=== PATIENT | female | born 1970 | race Caucasian/White ===

== ENCOUNTER 2022-05-15 18:24 | Inpatient (IN) | payer OTHER ==
--- OUTSIDE RECORDS SUMMARY | 2022-05-15 18:27 | XMS REPORT | Continuity of Care Document ---
:1970 Author Organization [facility] t Address [facility]3 [address] [place] [address] Care Team Providers Name Role Phone KRIS BROTHERS Primary Care Physician Unavailable DR KRIS BROTHERS Attending Clinician Unavailable [phone] Attending Clinician Unavailable KEVEN Attending Clinician Unavailable Timothy Murrieta Attending Clinician [phone] DR KRIS BROTHERS Admitting Clinician Unavailable KEVEN Admitting Clinician Unavailable Payers Payer Name Policy Type Policy Number Effective Date Expiration Date S ource Problems Condition Condition Condition Status Onset Resolution Last Treating Co mments Source Name Details Category Date Date Treatment Clinician Date Hypothyroi Hypothyroi Problem Active [place] dism dism - [facility] Chronic Chronic Problem Active [place] paranoid 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 00 [facility] Mixed Mixed Problem Active [place] anxiety Anxiety 818 Communi and and 00:00: ty depressive Depressive 00 Ho spita disorder Disorder l Clinics History of History of Problem Active S [place] manic Manic 8-18 Communi depressive Depressive 00:00: ty disorder Disorder 00 Hospit [facility] Clinics 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 Hallucinat 8-18 Co mmuni ions ions 00:00: ty 00 [facility] Diabetes Diabetes Problem Active [place] mellitus Mellitus 8-18 Commun i 00:00: ty [facility] Hyperlipid Hyperlipid Problem Active S we[place]y emia emia 1-19 Communi 00:00: ty 00 [facility] Schizoaffe Schizoaffe Problem Active 2003-06 S weeny ctive ctive 07-14 [facility] disorder, Disorder, 00:00: ty mixed type Mixed Type 00 [facility] Bipolar Bipolar Problem Active [place] disorder Disorder 10-15 Commun i 00:00: ty 00 [facility] Allergies, Adverse Reactions, Alerts Allergy Allergy Status Severity Reaction(s) Onset Inactive Treating Comm ents Source Name Type Date Date Clinician HALDOL Allergy Active Hallucinatio Swe han to [facility] e [facility] Risperda Allergy Active Hallucinatio S weeny l to [facility] e [facility] Olanzapi Allergy Active Hallucinatio S weeny ne to [facility] Social History Smoking Status Start Date Stop Date Source Current Every Day Smoker [facility] Medications Ordered Filled Start Stop Current Ordering Indication Dosage Frequency Signature Comments Components Source Medication Medication Date Date Medication? Clinician (SIG) Name Name Moiz Choudharyakote No 1 Q1D Depakote S we[place] 250 mg 250 mg 8-18 250 mg Communi tablet,payal tablet,payal 00:00: tablet,del ty yed release yed release 00 ayed H ospita Take 1 Take 1 release l tablet tablet Take 1 Clinics every day every day tablet by oral by oral every day route at route at by oral bedtime. bedtime. route at bedtime. Depakote ER Depakote ER No 2 BID Depakote [place] 500 mg 500 mg 8-18 ER 500 mg Commun i tablet,exte tablet,exte 00:00: tablet,ext ty nded nded 00 ended Hospita release release release l Take 2 Take 2 Take 2 Clinics tablets tablets tablets twice a day twice a day twice a by oral by oral day by route. route. oral route. Depakote ER Depakote ER No 1 BID Depakote [place] 500 mg 500 mg ER 500 mg Commun i tablet,exte tablet,exte tablet,ext ty nded nded ended Hospita release release release l Take 1 Take 1 Take 1 Clinics tablet tablet tablet twice a day twice a day twice a by oral by oral day by route. route. oral route. fluoxetine fluoxetine No 1capsul Q1D fluoxetine [place] 10 mg 10 mg e(s) 10 mg Communi capsule capsule capsule ty Take 1 Take 1 Take 1 Hospita capsule capsule capsule l every day every day every day Clinics by oral by oral by oral route. route. route. levothyroxi levothyroxi No 1 Q1D levothyrox [place] ne 150 mcg ne 150 mcg ine 150 Communi tablet Take tablet Take mcg tablet ty 1 tablet 1 tablet Take 1 Hospi ta every day every day tablet l by oral by oral every day Clin ics route. route. by oral route. atorvastati atorvastati No 1 Q1D atorvastat [place] n 40 mg n 40 mg in 40 mg Commu ni tablet Take tablet Take tablet ty 1 tablet 1 tablet Take 1 Hospi ta every day every day tablet l by oral by oral every day Clin ics route. route. by oral route. ergocalcife ergocalcife No 1capsul Q1W ergocalcif [place] rol rol e(s) andrea Communi (vitamin (vitamin (vitamin ty D2) 1,250 D2) 1,250 D2) 1,250 Hospita mcg (50,000 mcg (50,000 mcg l unit) unit) (50,000 Clinics capsule capsule unit) Take 1 Take 1 capsule capsule capsule Take 1 every week every week capsule by oral by oral every week route. route. by oral route. fluoxetine fluoxetine No 1capsul Q1D fluoxetine [place] 10 mg 10 mg e(s) 10 mg Communi capsule capsule capsule ty Take 1 Take 1 Take 1 Hospita capsule capsule capsule l every day every day every day Clinics by oral by oral by oral route. route. route. levothyroxi levothyroxi No 1 Q1D levothyrox [place] ne 137 mcg ne 137 mcg ine 137 Communi tablet Take tablet Take mcg tablet ty 1 tablet 1 tablet Take 1 Hospi ta every day every day tablet l by oral by oral every day Clin ics route. route. by oral route. levothyroxi levothyroxi No 1 Q1D levothyrox [place] ne 150 mcg ne 150 mcg ine 150 Communi tablet Take tablet Take mcg tablet ty 1 tablet 1 tablet Take 1 Hospi ta every day every day tablet l by oral by oral every day Clin ics route. route. by oral route. propranolol propranolol No 1 BID propranolo [place] 10 mg 10 mg l 10 mg Communi tablet Take tablet Take tablet ty 1 tablet 1 tablet Take 1 Hospi ta twice a day twice a day tablet l by oral by oral twice a Clinic s route. route. day by oral route. quetiapine quetiapine No 3 Q1D quetiapine [place] 25 mg 25 mg 25 mg Communi tablet Take tablet Take tablet ty 3 tablets 3 tablets Take 3 Hos rome every day every day tablets l by oral by oral every day Clin ics route at route at by oral bedtime. bedtime. route at bedtime. Vital Signs Vital Name Observation Time Observation Value Comments Source BP Diastolic 2022-02-11 00:00:00 74 mm[Hg] [facility] s Height 2022-02-11 00:00:00 65 [in_i] [facility] s BMI (Body Mass 2022-02-11 00:00:00 34.1 kg/m2 [facility]) [facility] s BP Systolic 2022-02-11 00:00:00 122 mm[Hg] [facility] s Body Weight 2022-02-11 00:00:00 3280 [oz_av] [facility] s BP Diastolic 2022-02-07 00:00:00 72 mm[Hg] [facility] s Height 2022-02-07 00:00:00 65 [in_i] [facility] s BMI (Body Mass 2022-02-07 00:00:00 34.1 kg/m2 [facility]) [facility] s BP Systolic 2022-02-07 00:00:00 120 mm[Hg] [facility] s Body Weight 2022-02-07 00:00:00 3280 [oz_av] [facility] s Procedures This patient has no known procedures. Plan of Care Planned Activity Planned Date Details Comments Source Diagnostic Test 2022-02-11 HbA1c (hemoglobin [facility] Pending 00:00:00 A1c), blood [code Hospital C linics = HbA1c (hemoglobin A1c), blood] Encounters Start End Encounter Admission Attending Care Care Encounter Source Date/Time Date/Time Type Type Clinicians Facility Department ID 2022-05-15 Outpatient ZAIRA PANTOJAEDDINGTON [id number] [place] 09:10:52 [id number] [facility] 2022-05-15 2022-05-15 Outpatient KRIS CAVAZOS [facility] [id number] [place] 09:13:00 09:13:00 [id number] [facility] 2022-02-11 2022-02-11 Outpatient ERICKSON_R [facility] [id number] [place] 00:00:00 00:00:00 0822 Commun i ty Hospita l Clinics 2022-02-11 2022-02-11 Outpatient [place], [facility] [id number] 00:00:00 00:00:00 Timothy [id number] Toro [id number] 2022-02-11 2022-02-11 Timothy [facility] [place] - [place] 00:00:00 00:00:00 General acute hospital - ty DO: [address] Hospit a [facility] [address], HOSPITAL Clinic s [place], [facility], [address] JACQUELINE , Ph. [phone] 2022-02-08 2022-02-08 Outpatient ERICKSON_R [facility] [id number] [place] 00:00:00 00:00:00 0819 Commun i ty Hospita l Clinics 2022-02-07 2022-02-07 Outpatient ERICKSON_R [facility] 1236 [place] 00:00:00 00:00:00 0818 Commun i ty Hospita l Clinics 2022-02-07 2022-02-07 Outpatient Jacqueline, [facility] [id number] 00:00:00 00:00:00 Timothy [id number] [id number] 2022-02-07 2022-02-07 Timothy [facility] [place] - [place] 18 [place] 00:00:00 00:00:00 General acute hospital - ty DO: [address] [facility], [address] JACQUELINE , Ph. [phone] 2022-02-04 2022-02-04 Outpatient KEVEN [facility] [id number] 00:00:00 00:00:00 15 [facility] i ty [facility] 2022-02-04 2022-02-04 Timothy [facility] [place] - [place] 00:00:00 00:00:00 [facility] DO: [address] [facility], [address] JACQUELINE , Ph. 2022-02-04 2022-02-04 Outpatient Jacqueline [facility] [id number] 00:00:00 00:00:00 Timothy [id number] Toro [id number] Results This patient has no known results.
--- NOTE | 2022-05-15 19:49 | EDPHYS ---
Physician Documentation [facility] Name: Laura Mendoza Age: 51 yrs Sex: Female : 1970 Arrival Date: 05/15/2022 Time: 18:27 Bed 23 Private MD: ED Physician Anselmo James HPI: 05/15 18:50 This 51 yrs old Female presents to ER via Ambulatory with complaints of Abscess. jh7 18:50 The patient presents with an abscess of the buttocks. Onset: The symptoms/episode jh7 began/occurred 3 month(s) ago. Possible cause(s): unknown. Associated signs and symptoms: Pertinent positives: discharge, drainage. Patient seen by Dr. Marcus today and sent to [facility] for outpatient CT. CT identified perirectal abscess. Dr. Marcus advised the patient to go to the ER for drainage of the abscess. Patient reports that she has had rectal pain for 2 years, but that has been worsening over the past 3 months.. Historical: - Allergies: 18:46 Codeine; ll1 18:46 respiradol; ll1 18:46 Haldol; ll1 - PMHx: 18:46 "mental health"; Hypertensive disorder; ll1 - PSHx: 18:46 tubal ligation; ll1 - Immunization history:: Client reports receiving the 2nd dose of the Covid vaccine. - Social history:: Smoking status: Patient reports the use of cigarette tobacco products, smokes one-half pack cigarettes per day. ROS: 18:50 Constitutional: Negative for fever, chills, and weight loss, Eyes: Negative for injury, jh7 pain, redness, and discharge. 18:50 ENT: Negative for injury, pain, and discharge, Neck: Negative for injury, pain, and swelling, Cardiovascular: Negative for chest pain, palpitations, and edema, Respiratory: Negative for shortness of breath, cough, wheezing, and pleuritic chest pain, Back: Negative for injury and pain, MS/Extremity: Negative for injury and deformity, Skin: Negative for injury, rash, and discoloration, Neuro: Negative for headache, weakness, numbness, tingling, and seizure. 18:50 Abdomen/GI: Positive for rectal pain. 18:50 Skin: Positive for abscess. 18:50 All other systems are negative. Exam: 18:50 Constitutional: This is a well developed, well nourished patient who is awake, alert, 7 and in no acute distress. Head/Face: Normocephalic, atraumatic. Neck: Trachea midline, no thyromegaly or masses palpated, and no cervical lymphadenopathy. Supple, full range of motion without nuchal rigidity, or vertebral point tenderness. No Meningismus. Cardiovascular: Regular rate and rhythm with a normal S1 and S2. No gallops, murmurs, or rubs. Normal PMI, no JVD. No pulse deficits. Respiratory: Lungs have equal breath sounds bilaterally, clear to auscultation and percussion. No rales, rhonchi or wheezes noted. No increased work of breathing, no retractions or nasal flaring. Back: No spinal tenderness. No costovertebral tenderness. Full range of motion. Skin: Warm, dry with normal turgor. Normal color with no rashes, no lesions, and no evidence of cellulitis. MS/ Extremity: Pulses equal, no cyanosis. Neurovascular intact. Full, normal range of motion. Neuro: Awake and alert, GCS 15, oriented to person, place, time, and situation. Motor strength 5/5 in all extremities. Sensory grossly intact. Normal gait. 18:50 Abdomen/GI: Rectal exam: tenderness, that is moderate. 21:09 ECG was reviewed by the Attending Physician. [facility] Vital Signs: 18:45 BP 156 / 99; Pulse 101; Resp 18; Temp 97.0; Pulse Ox 99% ; Weight 90.72 kg; Height 5 ll1 ft. 5 in. (165.10 cm); Pain 7/10; 21:15 BP 153 / 88; Pulse 81; Resp 18; Pulse Ox 99% on R/A; eh3 18:45 Body Mass Index 33.28 (90.72 kg, 165.10 cm) ll1 MDM: 19:22 Patient medically screened. [facility] 19:40 Differential diagnosis: Perirectal abscess. Data reviewed: vital signs, nurses notes, [facility] lab test result(s), EKG, radiologic studies, CT scan. Data interpreted: Pulse oximetry: is 99 %. Interpretation: normal. Counseling: I had a detailed discussion with the patient and/or guardian regarding: the historical points, exam findings, and any diagnostic results supporting the discharge/admit diagnosis, the need for further work-up and treatment in the hospital. Physician consultation: David Saxena MD was called at 19:40, was contacted at 19:40, regarding patient's condition, and will see patient tomorrow, would like admission per Dr. Seth France MD would like further tests performed, CT scan, pre-operative labs, would like medications started, Levaquin, Flagyl. 05/15 19:31 Order name: CBC with Diff; Complete Time: 21:49 [facility] 05/15 19:31 Order name: CMP; Complete Time: 21:49 [facility] 05/15 19:41 Order name: CT Pelvis wo Cont; Complete Time: 21:09 7 05/15 19:58 Order name: SARS-COV-2 Antigen Rapid; Complete Time: 20:37 em1 05/15 23:04 Order name: Urine Dipstick-Ancillary; Complete Time: 23:14 EDMS 05/15 19:31 Order name: IV Saline Lock; Complete Time: 21:23 [facility] 05/15 19:31 Order name: Labs collected and sent; Complete Time: 21:23 [facility] 05/15 19:41 Order name: EKG - Nurse/Tech; Complete Time: 21:23 jh7 05/15 21:49 Order name: Urine Dipstick-Ancillary (obtain specimen); Complete Time: 22:57 sb4 05/15 21:49 Order name: Urine Test (obtain specimen); Complete Time: 22:57 sb4 EC:09 Rate is 85 beats/min. Rhythm is regular. QRS [place] is Normal. NE interval is normal at jh7 144 msec. QRS interval is normal at 80 msec. QT interval is normal at 368 msec. No Q waves. T waves are Normal. No ST changes noted. Clinical impression: Normal ECG. Administered Medications: 20:57 Drug: NS 0.9% 1000 ml Route: IV; Rate: 1 bolus; Site: left antecubital; 3 23:12 Follow up: IV Status: Completed infusion; IV Intake: 1000ml [facility] 20:58 Drug: Zofran (Ondansetron) 4 mg Route: IVP; Site: left antecubital; 3 22:22 Follow up: Response: No adverse reaction 3 21:00 Drug: morphine 4 mg Route: IVP; Infused Over: 4 mins; Site: left antecubital; eh3 22:21 Follow up: Response: Pain is decreased eh3 21:15 Drug: Flagyl (metroNIDAZOLE) 500 mg Volume: 100 ml; Route: IVPB; Rate: 200 ml/hr; eh3 Infused Over: 30 mins; Site: left antecubital; 23:12 Follow up: Response: No adverse reaction; IV Status: Completed infusion; IV Intake: eh3 100ml 22:25 Drug: LevaQUIN (levofloxacin) 500 mg Volume: 100 ml; Route: IVPB; Infused Over: 60 eh3 mins; Site: left antecubital; 23:27 Follow up: IV Status: Infusion continued upon admission; IV Intake: 15ml eh3 Disposition: 05/16 02:42 Co-signature as Attending Physician, Anselmo James MD. rn Disposition Summary: 05/15/22 19:49 Hospitalization Ordered Hospitalization Status: Inpatient Admission [facility] Provider: Seth France [facility] Location: Telemetry/[facility] (Inpatient) [facility] Condition: Stable [facility] Problem: an ongoing problem [facility] Symptoms: have worsened [facility] Bed/Room Type: Standard [facility] Room Assignment: 205(05/15/22 22:20) [facility] Diagnosis - Anal abscess [facility] Forms: - Medication Reconciliation Form [facility] - SBAR form [facility] Signatures: Dispatcher [employer] EDAnselmo Coelho MD MD rn Basinger, Emily, RN RN eb1 Enrique Hernandez RN RN ll1 Linda Malave RN RN eh3 Krystyna Zapata, HVAC DESIGNER HVAC DESIGNER 7 Veronica Salazar PA-C PA-C sb4 Corrections: (The following items were deleted from the chart) 05/15 22:20 19:49 [facility] eb
--- NOTE | 2022-05-15 19:49 | ER ---
[facility] Name: Laura Mendoza Age: 51 yrs Sex: Female : 1970 Arrival Date: 05/15/2022 Time: 18:27 Bed 23 [facility] MD: Diagnosis: Anal abscess Presentation: 05/15 18:45 Chief complaint: Patient states: Rectal abscess for 2 weeks. Sent in by Dr. Yuan. No ll1 known fever. Coronavirus screen: Vaccine status: Patient reports being unvaccinated. Client denies travel out of the [place] in the last 14 days. At this time, the client does not indicate any symptoms associated with coronavirus-19. Ebola Screen: Patient denies travel to an Ebola-affected area in the 21 days before illness onset. Initial Sepsis Screen: Does the patient meet any 2 criteria? HR > 90 bpm. No. Patient's initial sepsis screen is negative. Does the patient have a suspected source of infection? Yes: Other: rectal abscess. Risk Assessment: Do you want to hurt yourself or someone else? Patient reports no desire to harm self or others. Onset of symptoms was May 01, 2022. 18:45 Method Of Arrival: Ambulatory ll1 18:45 Acuity: REN 3 ll1 Triage Assessment: 18:48 General: Appears uncomfortable, Behavior is cooperative, appropriate for age. Pain: ll1 Complains of pain in rectum Pain currently is 7 out of 10 on a pain scale. Quality of pain is described as aching, throbbing. : Reports rectal pain, bleeding. Historical: - Allergies: 18:46 Codeine; ll1 18:46 respiradol; ll1 18:46 Haldol; ll1 - PMHx: 18:46 "mental health"; Hypertensive disorder; ll1 - PSHx: 18:46 tubal ligation; ll1 - Immunization history:: Client reports receiving the 2nd dose of the Covid vaccine. - Social history:: Smoking status: Patient reports the use of cigarette tobacco products, smokes one-half pack cigarettes per day. Screenin:30 Abuse screen: Denies threats or abuse. Denies injuries from another. Nutritional eh3 screening: No deficits noted. Tuberculosis screening: No symptoms or risk factors identified. Fall Risk None identified. Assessment: 20:30 General: Appears in no apparent distress. uncomfortable, Behavior is cooperative, eh3 appropriate for age, anxious. Pain: Complains of pain in buttocks. Pain: Pain currently is 8 out of 10 on a pain scale. Quality of pain is described as sharp, Is continuous. Neuro: Level of Consciousness is awake, alert, obeys commands, Oriented to person, place, time, situation. Cardiovascular: Capillary refill < 3 seconds Patient's skin is warm and dry. Respiratory: Airway is patent Respiratory effort is even, unlabored, Respiratory pattern is regular, symmetrical. GI: Abdomen is round non-distended. : No signs and/or symptoms were reported regarding the genitourinary system. EENT: No signs and/or symptoms were reported regarding the EENT system. Derm: No signs and/or symptoms reported regarding the dermatologic system. Musculoskeletal: No signs and/or symptoms reported regarding the musculoskeletal system. Circulation, motion, and sensation intact. Range of motion: intact in all extremities. Vital Signs: 18:45 BP 156 / 99; Pulse 101; Resp 18; Temp 97.0; Pulse Ox 99% ; Weight 90.72 kg; Height 5 ll1 ft. 5 in. (165.10 cm); Pain 7/10; 21:15 BP 153 / 88; Pulse 81; Resp 18; Pulse Ox 99% on R/A; eh3 18:45 Body Mass Index 33.28 (90.72 kg, 165.10 cm) ll1 ED Course: 18:27 Patient arrived in ED. rg4 18:46 Triage completed. ll1 18:48 Arm band placed on. ll1 19:21 [facility]ata [facility] jh7 19:21 Anselmo James MD is Attending Physician. jh7 19:45 Seth France MD is Hospitalizing Provider. jh7 20:26 CT Pelvis wo Cont In Process Unspecified. EDMS 20:30 Patient has correct armband on for positive identification. Placed in gown. Bed in low eh3 position. Call light in reach. Side rails up X2. Adult w/ patient. monitoring manager on. Pulse ox on. Door closed. Noise minimized. Warm blanket given. 20:40 Linda Malave RN is Primary Nurse. eh3 20:50 Inserted saline lock: 20 gauge in left antecubital area, using aseptic technique. Blood eh3 collected. 23:15 No provider procedures requiring assistance completed. Patient admitted, IV remains in [address] Administered Medications: 20:57 Drug: NS 0.9% 1000 ml Route: IV; Rate: 1 bolus; Site: left antecubital; 3 23:12 Follow up: IV Status: Completed infusion; IV Intake: 1000ml 3 20:58 Drug: Zofran (Ondansetron) 4 mg Route: IVP; Site: left antecubital; 3 22:22 Follow up: Response: No adverse reaction 3 21:00 Drug: morphine 4 mg Route: IVP; Infused Over: 4 mins; Site: left antecubital; 3 22:21 Follow up: Response: Pain is decreased 3 21:15 Drug: Flagyl (metroNIDAZOLE) 500 mg Volume: 100 ml; Route: IVPB; Rate: 200 ml/hr; eh3 Infused Over: 30 mins; Site: left antecubital; 23:12 Follow up: Response: No adverse reaction; IV Status: Completed infusion; IV Intake: eh3 100ml 22:25 Drug: LevaQUIN (levofloxacin) 500 mg Volume: 100 ml; Route: IVPB; Infused Over: 60 eh3 mins; Site: left antecubital; 23:27 Follow up: IV Status: Infusion continued upon admission; IV Intake: 15ml [facility] Medication: 23:15 VIS not applicable for this client. 3 Intake: 23:12 IV: 100ml; Total: 100ml. 3 23:12 IV: 1000ml; Total: 1100ml. 3 23:27 IV: 15ml; Total: 1115ml. [facility] Outcome: 19:49 Decision to Hospitalize by Provider. [facility] 23:15 Admitted to Med/surg accompanied by tech, via stretcher, room 205, Report called to [facility] Lily 23:15 Condition: stable 23:15 Instructed on the need for admit. 23:32 Patient left the ED. [facility] Signatures: Dispatcher [employer] Emmy Menchaca rg4 Enrique Hernandez, RN RN 1 Linda Malave, JORDY RN 3 Krystyna Zapata, SALES REPRESENTATIVE SALES REPRESENTATIVE [facility] Corrections: (The following items were deleted from the chart) 23:27 20:25 LevaQUIN (levofloxacin) 500 mg 100 ml IVPB in left antecubital over 60 mins 100 eh3 ml eh3 23: 23:13 IV Status: Infusion continued upon admission; IV Intake: 15ml eh3 eh3 23:29 21:23 Inserted saline lock: 20 gauge in left antecubital area, using aseptic technique. eh3 Blood collected. eh3
[2022-05-15 20:32] LABS: SARS-CoV-2 Antigen Rapid Res Negative (Negative)
--- NOTE | 2022-05-15 20:47 | RAD REPORT ---
EXAM DESCRIPTION: CT - Pelvis Wo Cont - 05/15/2022 8:24 pm CLINICAL HISTORY: Anal/rectal abscess COMPARISON: No comparisons FINDINGS: 2.4 cm perianal abscess located at the 5-6 o'clock position with respect to the anus. Prom inent soft tissue noted in the region of the anus and vulva which is nonspecific. IMPRESSION: Perianal abscess measuring approximately 2.4 cm. Nonspecific soft tissue in the perineum that is not well characterized on CT. Recommend clinical correlation.
[2022-05-15] MEDS ORDERED: ONDANSETRON 4 MG/2 ML VIAL ONE (20:56)
[2022-05-15] MEDS ORDERED: METRONIDAZOLE 500mg IVPB 500 MG/100 ML BAG IV ONE (20:56)
[2022-05-15] MEDS ORDERED: MORPHINE 4 MG/ML SYR ONE (20:56)
[2022-05-15] MEDS ORDERED: Levofloxacin500mg IV 500 MG/100 ML BAG IV ONE (20:56)
[2022-05-15] MEDS ORDERED: NA CHLORIDE 0.9% 1,000 ML ONE (20:56)
[2022-05-15 21:39] LABS: Absolute Lymphocytes (CBC) 1.6 K/uL (0.7-4.9); Hematocrit 32.3 % (36.0-45.0); Lymphocytes % 31.2 % (15.3-44.8); MCV 95.1 fL (80-100); MPV 6.5 fL (7.6-11.3)
[2022-05-15 21:47] LABS: Albumin 3.3 g/dL (3.4-5.0); Bilirubin Total 0.2 mg/dL (0.2-1.0); Potassium 3.9 mmol/L (3.5-5.1); Protein, Total 6.8 g/dL (6.4-8.2)
--- NOTE | 2022-05-15 21:50 | P.HP ---
Certification for Inpatient Patient admitted to: Inpatient With expected LOS: <2 Midnights Patient will require the following post-hospital care: None Practitioner: I am a practitioner with admitting privileges, knowledge of patient current condition, hospital course, and medical plan of care. Services: Services provided to patient in accordance with Admission requirements found in Title 42 Section 412.3 of the Code of Federal Regulations <MartinVeronica - Last Filed: 05/16/22 04:04> Patient History Date of Service: 05/16/22 Primary Care Provider: MALDONADO Reason for admission: Perianal Abscess History of Present Illness: Patient is a 51-year-old female with past medical history of hypertension and PTSD who presented to the ED with complaints of rectal pain and bleeding. She states that she has had pain in her rectal area for about 2 weeks now and can hardly sit down anymore. Patient saw Dr. Yuan yesterday and had a CT done and was sent to ED for further evaluation. No significant lab abnormalities noted.. Pelvis CT showed "2.4 cm perianal abscess located at the 5-6 o'clock position with respect to the anus. Prominent soft tissue noted in the region of the anus and vulva which is nonspecific." Dr. Saxena was contacted and will take patient to OR in morning. She was given morphine and pain medications and antibiotics in ED. Patient is admitted for further management. Home medications list reviewed: Yes - Past Medical/Surgical History Diabetic: No -: Hypertension -: PTSD -: Tubal ligation Psychosocial/ Personal History: Patient lives at home alone. She has siblings that help take care of her. - Family History Father -: Cancer Notes: Prostate CA Mother -: Heart disease Notes: Afib - Social History Smoking Status: Current every day smoker Alcohol use: No CD- Drugs: No Caffeine use: Yes Place of Residence: Home <Veronica Salazar - Last Filed: 05/16/22 04:04> Date of Service: 05/16/22 <Seth France - Last Filed: 05/16/22 17:01> Allergies codeine Allergy (Verified 05/15/22 23:46) uknown haloperidol [From Haldol] Allergy (Verified 05/15/22 23:46) hyperactivity risperidone [From Risperdal] Allergy (Verified 05/15/22 23:46) hyperactivity Review of Systems Gastrointestinal: As per HPI <Veronica Salazar - Last Filed: 05/16/22 04:04> Physical Examination - Physical Exam General: Alert, In no apparent distress HEENT: Atraumatic, PERRLA, EOMI, Sclerae nonicteric Neck: Supple, 2+ carotid pulse no bruit, No LAD, Without JVD or thyroid abnormality Respiratory: Clear to auscultation bilaterally, Normal air movement Cardiovascular: Regular rate/rhythm, Normal S1 S2 Gastrointestinal: Normal bowel sounds, No tenderness Musculoskeletal: No tenderness Integumentary: No rashes Neurological: Normal speech, Normal strength at 5/5 x4 extr, Normal tone, Normal affect - Studies Laboratory Data (last 24 hrs) 05/15/22 21:16: Sodium 136, Potassium 3.9, BUN 12, Creatinine 1.01, Glucose 147 H, Total Bilirubin 0.2, AST 30, ALT 49, Alkaline Phosphatase 61 05/15/22 21:16: WBC 5.00, Hgb 11.2 L, Hct 32.3 L, Plt Count 278 <MartinVeronica - Last Filed: 05/16/22 04:04> - Studies Laboratory Data (last 24 hrs) 05/15/22 21:16: Sodium 136, Potassium 3.9, BUN 12, Creatinine 1.01, Glucose 147 H, Total Bilirubin 0.2, AST 30, ALT 49, Alkaline Phosphatase 61 05/15/22 21:16: WBC 5.00, Hgb 11.2 L, Hct 32.3 L, Plt Count 278 <Seth France - Last Filed: 05/16/22 17:01> Assessment and Plan - Problems (Diagnosis) (1) Perianal abscess Current Visit: Yes Status: Acute (2) Hypertension Current Visit: Yes Status: Chronic Qualifiers: Hypertension type: primary hypertension Qualified Code(s): I10 - Essential (primary) hypertension (3) PTSD (post-traumatic stress disorder) Current Visit: Yes Status: Chronic (4) Anemia Current Visit: Yes Status: Chronic Qualifiers: Anemia type: unspecified type Qualified Code(s): D64.9 - Anemia, unspecified - Plan Continue levaquin and flagyl, per surgery recommendation. NPO at midnight. Planning for OR in morning. Pain control as needed and IV fluids. Monitor and replete electrolytes per protocol. Reconcile and continue home medications. SCDs for VTE prophylaxis. Full code Discharge Plan: Home - Advance Directives Does patient have a Living Will: No Does patient have a Durable POA for Healthcare: No - Code Status/Comfort Care Code Status Assessed: Yes (Full) Critical Care: No Time Spent Managing Pts Care (In Minutes): 50 <Veronica Salazar - Last Filed: 05/16/22 04:04> Physician Review: Patient Assessed, Agree with Above Assessment and Plan <Seth France - Last Filed: 05/16/22 17:01>
[2022-05-15 23:04] LABS: Urine Blood Trace-lysed (Negative); Urine Glucose Negative (Negative); Urine Protein Negative (Negative); Urine Specific Gravity 1.015 (1.005-1.030)
[2022-05-15] MEDS ORDERED: ACETAMINOPHEN 325 MG TABLET PO PRN (23:25)
[2022-05-15] MEDS ORDERED: ONDANSETRON 4 MG/2 ML VIAL IV PRN (23:25)
[2022-05-15 23:51] VITALS: BMI 33.1
[2022-05-16] MEDS: NA CHLORIDE 0.9% 1,000 ML IV SCH ×3 (00:36→20:05)
[2022-05-16] MEDS: MORPHINE 4 MG/ML SYR IV PRN ×2 (00:37→06:37)
[2022-05-16] MEDS: METRONIDAZOLE 500mg IVPB 500 MG/100 ML BAG IV SCH ×3 (02:05→16:20)
[2022-05-16] MEDS ORDERED: SUCCINYLCHOLINE 20 MG/ML (10 ML) IV ONE (13:50)
[2022-05-16] MEDS ORDERED: propofoL 200 MG/20 ML VIAL IV ONE (13:52)
[2022-05-16] MEDS ORDERED: FENTANYL CITR 100 MCG/2 ML ONE ×2 (13:53→14:23)
[2022-05-16] MEDS ORDERED: MIDAZOLAM HCL 2 MG/2 ML INJ ONE (13:53)
[2022-05-16] MEDS ORDERED: Ringers Lactate 1,000 ML IV ONE ×2 (13:57→15:15)
--- NOTE | 2022-05-16 14:10 | P.CNS ---
Date of Consult: 05/16/22 PC: This 51-year-old female presented to emergency room with severe perirectal pain for diagnosis and treatment. HPC: This patient has had a chronically draining area around her anus for the last 3 to 4 months. More recently has had increased pain and difficulty sitting. A CT scan at another facility showed a abscess. PSHx: Bilateral tubal ligation PMHx: Negative Social Hx: Allergic to codeine haloperidol and risperidone Sys R: No cough, wheeze, shortness of breath. No chest pain or palpitation. Weight has been steady, she says she has good appetite. O/E: Awake alert vital signs are stable, afebrile HEENT: Not jaundiced Chest: Air entry equal bilaterally Abd: Soft nontender, perirectal exam deferred [place]: Intact Data: Normal white count, CT scan demonstrates perirectal abscess Impression: Perirectal abscess with possible fistula Plan: I will take this patient to the operating room for an examination under anesthesia, and drainage of this perirectal abscess. It is possible that she may have a fistula. The patient is not the best historian, but understands the risks of the procedure today. The possibility of bleeding, infection, recurrence, need for further surgeries and procedures was outlined. The possibility of incontinence, and further unseen complications were explained. She understands and wants to proceed.
--- NOTE | 2022-05-16 14:39 | P.OP ---
Preoperative diagnosis: Perirectal abscess Postoperative diagnosis: Perirectal carcinoma Primary procedure: Examination under anesthesia Secondary procedure: Excision biopsy of perirectal tissue Other procedure(s): Fulguration of perirectal tissue Anesthesia: General Estimated blood loss: 720 cc Specimen: Tissue from tumor left side of anus Operative Technique: The patient brought the operating room and placed supine on the table. After the induction of adequate general anesthesia, the patient was transferred into lithotomy position. The perineal area was now prepped with a Betadine solution, and draped in the usual aseptic manner. With the patient placed in Trendelenburg we were able to examine now the perirectal area. 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 There is hard thickened tissue around the anus more markedly on the left side. At the apex of the anus at the 12:00 just next of the perineal body there was an area that had destroyed part of the perineal body and was actively bleeding. This was controlled using a #2-0 chromic suture. Electrocautery was now used to fulgurate this lesion which is thin friable and bleeding. Adequate hemostasis having been achieved, a large tampon was formed using 4 x 4's and Surgicel cotton. This we were able to apply directly to the perianal area and maintain hemostasis. At the 6 o'clock position on the patient there appeared to be what was an external hemorrhoid. On opening this it appears that this is just like large seroma that was in that area. No pus was actually seen throughout the procedure. At the end of the procedure the patient was in a stable condition when sent to the recovery room. Needle sponge instrument count were correct. No drains were placed Complications: None Transferred to: Recovery Room Condition: Good
[2022-05-16] MEDS ORDERED: KETOROLAC 30 MG/ML INJ ONE (14:53)
[2022-05-16] MEDS: FENTANYL CITR 100 MCG/2 ML ONE ×3 (14:54→15:16)
[2022-05-16 15:32] VITALS: O2SAT 95
--- NOTE | 2022-05-16 17:08 | P.PN ---
Subjective Date of Service: 05/16/22 Primary Care Provider: MALDONADO Chief Complaint: Perianal Abscess No acute events overnight. She reports mild pain in the abscess region. She denies any fevers or chills. She has been NPO past midnight in anticipation for surgery today. Review of Systems 10-point ROS is otherwise unremarkable Integumentary: Other (perianal abscess) Physical Examination - Vital Signs Temperature: 98.2 F Blood Pressure: 118/65 Pulse: 82 Respirations: 16 Pulse Ox (%): 95 - Physical Exam General: Alert, In no apparent distress, Oriented x3 HEENT: Atraumatic, Mucous membr. moist/pink, EOMI, Sclerae nonicteric Neck: JVD not distended Respiratory: Clear to auscultation bilaterally, Normal air movement Cardiovascular: No edema, Regular rate/rhythm, Normal S1 S2, No gallops, No rubs, No murmurs Capillary refill: <2 Seconds Gastrointestinal: Normal bowel sounds, Soft and benign, Non-distended, No tenderness, No rebound, No guarding Musculoskeletal: No clubbing Neurological: Normal speech, Cranial nerves 3-12 intact, Normal affect - Studies Laboratory Data (last 24 hrs) 05/15/22 21:16: Sodium 136, Potassium 3.9, BUN 12, Creatinine 1.01, Glucose 147 H, Total Bilirubin 0.2, AST 30, ALT 49, Alkaline Phosphatase 61 05/15/22 21:16: WBC 5.00, Hgb 11.2 L, Hct 32.3 L, Plt Count 278 Assessment And Plan - Plan # Perianal Abscess - She does not currently meet sepsis criteria - CT pelvis = "perianal abscess measuring approximately 2.4 cm. Nonspecific soft tissue in the perineum that is not well characterized on CT." - General Surgery consulted and night team notified Dr. Saxena - recommendations appreciated - Plan for incision and drainage this afternoon - Continue levofloxacin + metronidazole for now - NPO - Hold pharmacologic VTE prophylaxis in anticipation for surgery - Pain control # Post-Traumatic Stress Disorder - Continue home aripiprazole, divalproex, propanolol, trazodone # Hypothyroidism - Continue home levothyroxine # Hypertension - Continue home lisinopril Seth France M.D.
[2022-05-16] MEDS: PROPRANOLOL HCL 10 MG TAB PO SCH (20:06)
[2022-05-16] MEDS ORDERED: Levofloxacin500mg IV 500 MG/100 ML BAG IV SCH (21:00)
[2022-05-16] MEDS ORDERED: DIVALPROEX ER 250 MG TAB PO SCH (21:00)
[2022-05-16] MEDS ORDERED: TRAZODONE 50 MG TABLET PO SCH (21:00)
[2022-05-17] MEDS: METRONIDAZOLE 500mg IVPB 500 MG/100 ML BAG IV SCH ×2 (01:13→09:37)
[2022-05-17] MEDS ORDERED: FENTANYL CITR 100 MCG/2 ML IV ONE (01:43)
[2022-05-17 03:52] LABS: Absolute Lymphocytes (CBC) 1.5 K/uL (0.7-4.9); Hematocrit 29.3 % (36.0-45.0); Lymphocytes % 32.4 % (15.3-44.8); MCV 95.3 fL (80-100); MPV 6.2 fL (7.6-11.3); RBC Red Blood Cell Count 3.08 M/uL (3.86-4.86)
[2022-05-17 04:10] LABS: Magnesium 1.9 mg/dL (1.8-2.4); Potassium 4.1 mmol/L (3.5-5.1)
[2022-05-17] MEDS: NA CHLORIDE 0.9% 1,000 ML IV SCH ×2 (07:00→15:25)
[2022-05-17] MEDS ORDERED: LEVOTHYROXINE SOD 0.075 MG TAB PO SCH (09:00)
[2022-05-17] MEDS ORDERED: lisinopriL 20 MG TAB PO SCH (09:00)
[2022-05-17] MEDS ORDERED: ARIPiprazole 5 MG TAB PO SCH (09:00)
[2022-05-17] MEDS: PROPRANOLOL HCL 10 MG TAB PO SCH (09:37)
[2022-05-17 11:36] VITALS: BP 143/69; TEMP 98.5
[2022-05-17] MEDS ORDERED: NICOTINE 14 MG/PAT TD SCH (12:30)
[2022-05-17] MEDS ORDERED: HYDROCODONE/APAP 5/325 MG TAB PO ONE (16:00)
--- NOTE | 2022-05-17 16:42 | P.DS ---
Admission Date: 05/15/22 Discharge Date: 05/17/22 Primary Care Provider: MALDONADO Disposition: ROUTINE DISCHARGE Discharge Condition: GOOD Reason for Admission: Perianal Abscess Consultations: 1. 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 Laura Daley is a 51 year old female with a past medical history significant for posttraumatic stress disorder, hypothyroidism, hypertension who was admitted to the [facility] on 05/15/2022 for perirectal pain. She was admitted to the Medicine service. Upon further evaluation, her CT pelvis revealed, "perianal abscess measuring approximately 2.4 cm. Nonspecific soft tissue in the perineum that is not well characterized on CT." General Surgery was consulted and she was evaluated by Dr. Saxena. On 05/16/2022, she went to the operating room with initial intention of incision and drainage. However, during the procedure she was noted to have a large perirectal mass concerning for a carcinoma. Biopsies were taken by Dr. Saxena in the operating room. She did well postoperatively and her pain is well controlled with p.o. medications. I have advised her that it is essential that she follow-up in the outpatient setting with a colorectal surgeon and oncologist as soon as possible. I have offered her several facilities to follow-up with including, but not limited to, [facility], [facility], [facility], and [facility]. We have provided her contact information for multiple facilities and she will contact one after she does her research to schedule follow-up appointment. She was advised about how time-sensitive this follow-up is and she verbalized her understanding. On 05/17/2022, she was seen on morning rounds and deemed medically stable for discharge. She was discharged with instructions to schedule follow-up appointments with her PCP and with General Surgery (Dr. Saxena). She was prov ided prescriptions for amoxicillinclavulanate and hydrocodoneacetaminophen. She was given the opportunity to ask questions and reported no further questions. Furthermore, all questions were answered to the best of my ability. Prior to her controlled-substance prescription, a PDMP review was conducted. Over the last 1 year, she has received 0 prescriptions, to 0 pharmacies, from 0 providers. Her opioid overdose risk score is 0. Today, I personally spent 25 minutes on her case, of which greater than 50% of the time was spent in patient education, counseling, and coordination of care as described above. - Physical Exam General: Alert, In no apparent distress, Oriented x3 HEENT: Atraumatic, Mucous membr. moist/pink, EOMI, Sclerae nonicteric Neck: JVD not distended Respiratory: Clear to auscultation bilaterally, Normal air movement Cardiovascular: No edema, Regular rate/rhythm, Normal S1 S2, No gallops, No rubs, No murmurs Capillary refill: <2 Seconds Gastrointestinal: Normal bowel sounds, Soft and benign, Non-distended, No tenderness, No rebound, No guarding Musculoskeletal: No clubbing Neurological: Normal speech, Cranial nerves 3-12 intact, Normal affect Vital Signs/Physical Exam: Temp Pulse Resp BP Pulse Ox 98.5 F 73 19 143/69 H 96 05/17/22 11:35 05/17/22 11:35 05/17/22 16:35 05/17/22 11:35 05/17/22 16:35 Laboratory Data at Discharge: WBC 4.60 K/uL (4.3-10.9) 05/17/22 03:40 Hgb 10.0 g/dL (12.0-15.0) L 05/17/22 03:40 Hct 29.3 % (36.0-45.0) L 05/17/22 03:40 Plt Count 225 K/uL (152-406) 05/17/22 03:40 Sodium 136 mmol/L (136-145) 05/17/22 03:40 Potassium 4.1 mmol/L (3.5-5.1) 05/17/22 03:40 BUN 10 mg/dL (7-18) 05/17/22 03:40 Creatinine 0.51 mg/dL (0.55-1.3) L 05/17/22 03:40 Glucose 101 mg/dL (74-106) 05/17/22 03:40 Magnesium 1.9 mg/dL (1.8-2.4) 05/17/22 03:40 Total Bilirubin 0.2 mg/dL (0.2-1.0) 05/15/22 21:16 AST 30 U/L (15-37) 05/15/22 21:16 ALT 49 U/L (12-78) 05/15/22 21:16 Alkaline Phosphatase 61 U/L (45-117) 05/15/22 21:16 Home Medications: ARIPiprazole [Aripiprazole] 15 mg PO DAILY 05/16/22 Divalproex ER [Depakote *ER] 250 mg PO BEDTIME 05/16/22 Levothyroxine Sodium [Levothyroxine] 150 mcg PO DAILY 05/16/22 Propranolol [Inderal*] 10 mg PO BID 05/16/22 Trazodone HCl 50 mg PO BEDTIME 05/16/22 lisinopriL [Lisinopril] 20 mg PO DAILY 05/16/22 Amox/Clavulanate [Augmentin 875-125 Tab] 875 mg PO BID 7 Days #14 tab 05/17/22 Hydrocodone 5/APAP 325 [[place] 5/325] 1 tab PO Q6H PRN 3 Days #12 tab 05/17/22 New Medications: Amox/Clavulanate [Augmentin 875-125 Tab] 875 mg PO BID 7 Days #14 tab Hydrocodone 5/APAP 325 [[place] 5/325] 1 tab PO Q6H PRN 3 Days #12 tab PRN Reason: Pain Physician Discharge Instructions: 1. Please call and schedule a follow-up appointment with your PCP ([facility]) in 3-5 days - There was a small amount of blood in your urine sample. Please follow this up at your next PCP appointment 2. Please call and schedule a follow-up appointment with Dr. Saxena in the wound care clinic 3. Please call and schedule a follow-up with your choice of Oncology and Colorectal Surgery as soon as possible Diet: Regular Activity: Ad myles Followup: David Saxena MD [ACTIVE - CAN ADMIT] - NONE,NONE [Primary Care Provider] - Time spent managing pt's care (in minutes): 25
--- NOTE | 2022-05-20 12:59 | EKG ---
Test Date: 2022-05-15 Test Time: 21:09:02 Senior [employer] Developer: MALENA MEASUREMENT RESULTS: Intervals: Rate: 85 NM: 144 QRSD: 80 QT: 368 QTc: 437 [place]: P: 63 NM: 144 QRS: 68 T: 35 INTERPRETIVE STATEMENTS: Normal sinus rhythm Normal ECG No previous ECG available for comparison Electronically Signed On 05-20-22 12:53:27 PERSONNEL RECRUITER by Brandon Acosta
== END 2022-05-17 18:14 | disposition home or self-care (01) | DRG 756 ==
LOC: ER 18:24 → ERHOLD 21:39 → 2ND 23:01
PROVIDERS: ADMIT Internal Medicine; ATTEND Internal Medicine
PROC: 0D5P7ZZ Destruction of Rectum, Via Natural or Artificial Opening (ICD-10-PCS; 2022-05-15)
PROC: 0DBQ7ZX Excision of Anus, Via Natural or Artificial Opening, Diagnostic (ICD-10-PCS; principal; 2022-05-16 13:30)
DX: C76.3 Malignant neoplasm of pelvis (principal); I10 Essential (primary) hypertension; E03.9 Hypothyroidism, unspecified; D64.9 Anemia, unspecified; F43.10 Post-traumatic stress disorder, unspecified; F17.210 Nicotine dependence, cigarettes, uncomplicated; Z60.2 Problems related to living alone; Z88.5 Allergy status to narcotic agent; Z88.8 Allergy status to other drugs, medicaments and biological substances; Z98.51 Tubal ligation status; Z79.899 Other long term (current) drug therapy; Z20.822 Contact with and (suspected) exposure to COVID-19
CPT/HCPCS: 36415; 72192; 80048; 80053; 81003; 83735; 85025; 87811; 88305; 93005; 96365; 96375; 99285; J0330; J2250; J2405; J2704; J3010; J7030; J7120

== ENCOUNTER 2022-07-01 17:45 | Inpatient (IN) | payer OTHER ==
--- OUTSIDE RECORDS SUMMARY | 2022-07-01 17:50 | XMS REPORT | Clinical Summary ---
:1970 Author Organization [facility] Address [address] [place] [address] Care Team Providers Name Role Phone Unavailable Primary Care Provider Unavailable Allergies Active Allergy Reactions Severity Noted Date Comments Codeine Itching 05/31/2022 Hydromorphone Itching 05/31/2022 Haloperidol 05/31/2022 "Makes me crazy , running around a mile a minute" sister states was an adverse reac tion Risperidone Analogues 05/31/2022 "Makes me crazy, running around a mile a minute", sister states was an adverse reac tion Medications Medication Sig Dispensed Refills Start End Date Status Date traMADol (Ultram) Take 1 tablet 4 tablet 0 Active 50 mg (50 mg) by 2 tabletIndications: mouth every 6 Breakthrough (six) hours as cancer pain needed for moderate pain for up to 4 doses. ARIPiprazole Take 1 tablet 0 Act krysten (ABILIFY) 30 MG (30 mg) by tablet mouth daily. propranolol Take 1 tablet 0 Acti ve (INDERAL) 10 mg (10 mg) by tablet mouth twice daily. divalproex Take 5 tablets 0 Acti ve (DEPAKOTE) 250 mg (1,250 mg) by DR tablet mouth at bedtime. traZODone Take 1 tablet 0 Active (DESYREL) 50 mg (50 mg) by tablet mouth. naloxone (Narcan) Use 1 dose into 2 each 0 Active 4 mg/actuation one nostril as 2 nasal needed for sprayIndications: opioid Neoplasm related overdose. Do pain (acute) not prime or (chronic) test the inhaler prior to adminstration. Give another dose into the other nostril after 2 to 3 minutes if the patient does not respond or responds and then relapses into respiratory depression. levothyroxine Take 1 tablet 0 Ac tive (SYNTHROID, (150 mcg) by 2 LEVOTHROID) 150 mouth daily. mcg tabletIndications: Hypothyroidism, not otherwise specified lisinopril Take 1 tablet 0 Activ e (PRINIVIL,ZESTRIL) (20 mg) by 2 20 mg mouth every tabletIndications: morning. Hypertension apixaban (ELIQUIS Take 2 tablets 74 tablet 0 Active STARTER PACK) by mouth twice 2 tablet dose pack 5 daily for 5 mg FOR VTE days, then take ONLYIndications: 1 tablet by Pulmonary mouth twice embolism, not daily otherwise thereafter. specified polyethylene Fill powder to 1020 g 0 07/03/19 Ac tive glycol (GLYCOLAX) clauida inside cap 2 23 17 gram/dose (17 grams). powderIndications: Stir and Neoplasm related dissolve in any pain (acute) 4 to 8 ounces (chronic) of beverage then drink solution twice a day for constipation. senna-docusate Take 4 tablets 240 tablet 0 07/03/19 Active (SENOKOT-S) 8.6 by mouth twice 2 23 mg-50 mg daily for 30 tabletIndications: days. Neoplasm related pain (acute) (chronic) morphine (MS Take 1 tablet 45 tablet 0 Act krysten CONTIN) 15 mg ER (15 mg) by 2 tabletIndications: mouth every 8 Neoplasm related (eight) hours. pain (acute) (chronic) morphine (MSIR) 15 Take HALF to 60 tablet 0 Active mg IR ONE tablet (7.5 2 tabletIndications: mg to 15 mg) by Neoplasm related mouth every 4 pain (acute) (four) hours as (chronic) needed for moderate pain or severe pain. traMADol (Ultram) Take 1 tablet 4 tablet 0 05/30/20 Discontinued 50 mg (50 mg) by 2 22 (Reorder) tabletIndications: mouth every 6 Breakthrough (six) hours as cancer pain needed for moderate pain for up to 4 doses. traMADol (Ultram) Take 1 tablet 4 tablet 0 05/30/20 Discontinued 50 mg (50 mg) by 2 22 (Reorder) tabletIndications: mouth every 6 Breakthrough (six) hours as cancer pain needed for moderate pain for up to 4 doses. traMADol (Ultram) Take 1 tablet 4 tablet 0 05/30/20 Discontinued 50 mg (50 mg) by 2 22 (Reorder) tabletIndications: mouth every 6 Breakthrough (six) hours as cancer pain needed for moderate pain for up to 4 doses. traMADol (Ultram) Take 1 tablet 4 tablet 0 05/30/20 Discontinued 50 mg (50 mg) by 2 22 (Reorder) tabletIndications: mouth every 6 Breakthrough (six) hours as cancer pain needed for moderate pain for up to 4 doses. traMADol (Ultram) Take 1 tablet 4 tablet 0 05/30/20 Discontinued 50 mg (50 mg) by 2 22 (Reorder) tabletIndications: mouth every 6 Breakthrough (six) hours as cancer pain needed for moderate pain for up to 4 doses. levothyroxine Take 1 tablet 0 06/03/20 Di scontinued (SYNTHROID, (150 mcg) by 22 (Reor gianluca) LEVOTHROID) 150 mouth. mcg tablet lisinopril Take 1 tablet 0 06/03/20 Disco ntinued (PRINIVIL,ZESTRIL) (20 mg) by 22 (Reorder) 20 mg tablet mouth. morphine (MS Take 1 tablet 90 tablet 0 06/03/20 Dis continued CONTIN) 15 mg ER (15 mg) by 2 22 (R eorder) tabletIndications: mouth every 8 Neoplasm related (eight) hours. pain (acute) (chronic) morphine (MSIR) 15 Take HALF to 60 tablet 0 06/03/20 Discontinued mg IR ONE tablet 2 22 (Reorder) tabletIndications: (7.5-15 mg) by Neoplasm related mouth every 4 pain (acute) (four) hours as (chronic) needed for moderate pain or severe pain. morphine (MS Take 1 tablet 42 tablet 0 06/11/20 Dis continued CONTIN) 15 mg ER (15 mg) by 2 22 (R eorder) tabletIndications: mouth every 8 Neoplasm related (eight) hours. pain (acute) (chronic) morphine (MSIR) 15 Take HALF to 30 tablet 0 06/11/20 Discontinued mg IR ONE tablet (7.5 2 22 (Reo rder) tabletIndications: mg to 15 mg) by Neoplasm related mouth every 4 pain (acute) (four) hours as (chronic) needed for moderate pain or severe pain. 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) (chronic) 06/10/2022 Refill Estuardo Blanchard, 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 pain (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) (chronic) 06/04/2022 Lab Requisition Artemio Esqueda MD Witson, Anne S., MD 06/04/2022 Telephone Mindy Vazquez PA Discharge Call 05/31/2022 Ancillary Procedure Radiology Tosha Dhillon APN 05/31/2022 Travel 05/30/2022 - Hospital Encounter General Internal Theo Clement cancer pain (Primary Dx); 06/03/2022 Danny Hernandez MD Rectal cancer; Aye Brody MD Neoplasm related pain (acute) (chronic); Anali Kelly MD Hypothyroid ism, not otherwise specified; Hypertension; Pulmonary embol ism, not otherwise specified 05/30/2022 Orders Only Radiology Anant Knott PA 05/30/2022 Travel after 07/01/2021 Surgical History Surgery Date Site/Laterality Comments TUBAL LIGATION Bilateral Medical History Medical History Date Comments Hypertension Hypothyroidism Bipolar disorder Posttraumatic stress disorder Rectal cancer Social History Tobacco Use Types Packs/Day Years Used Date Smoking Tobacco: Every Day Cigarettes Smokeless Tobacco: Current Tobacco Cessation: Ready to Quit: Not As ked; Counseling Given: Not Answered Alcohol Use Standard Drinks/Week Comments Not Currently 0 (1 standard drink = 0.6 oz pure alcoho l) Sex Assigned at Date Recorded Female 06/01/2022 5:35 PM OFFICE SPECIALIST Job Start Date Occupation Industry Not on file Not on file Not on file Obstetrics History Last Filed Vital Signs Vital Sign Reading Time Taken Comments Blood Pressure 132/83 06/03/2022 3:22 PM OFFICE SPECIALIST Pulse 73 06/03/2022 3:22 PM OFFICE SPECIALIST Temperature 37 C (98.6 F) 06/03/2022 3:22 PM OFFICE SPECIALIST Respiratory Rate 17 06/03/2022 3:22 PM OFFICE SPECIALIST Oxygen Saturation 96% 06/03/2022 3:22 PM OFFICE SPECIALIST Inhaled Oxygen Concentration - - Weight 89.6 kg (197 lb 8.5 oz) 05/31/2022 8:01 PM OFFICE SPECIALIST Height 165 cm (5' 4.96") 05/31/2022 8:01 PM OFFICE SPECIALIST Body Mass Index 32.91 05/31/2022 8:01 PM OFFICE SPECIALIST Plan of Treatment Not on file Procedures Procedure Name Priority Date/Time Associated Comments Diagnosis CALCIUM LEVEL TOTAL AM 06/03/2022 4:57 Resul ts for this AM OFFICE SPECIALIST procedure are i n the results section. .GLOMERULAR FILTRATION AM 06/03/2022 4:57 Re sults for this RATE AM OFFICE SPECIALIST procedure are i n the results section. SERUM CREATININE AM 06/03/2022 4:57 Results for this AM OFFICE SPECIALIST procedure are i n the results section. ELECTROLYTE PANEL AM 06/03/2022 4:57 Results for this AM OFFICE SPECIALIST procedure are i n the results section. BLOOD UREA NITROGEN AM 06/03/2022 4:57 Resul ts for this AM OFFICE SPECIALIST procedure are i n the results section. GLUCOSE LEVEL AM 06/03/2022 4:57 Results for this AM OFFICE SPECIALIST procedure are i n the results section. MANUAL DIFFERENTIAL AM 06/03/2022 4:57 Resul ts for this AM OFFICE SPECIALIST procedure are i n the results section. Results CBC AM 06/03/2022 4:57 Results for this AM OFFICE SPECIALIST procedure are i n the results section. PHOSPHORUS LEVEL AM 06/03/2022 4:57 Results for this AM OFFICE SPECIALIST procedure are i n the results section. MAGNESIUM LEVEL AM 06/03/2022 4:57 Results f or this AM OFFICE SPECIALIST procedure are i n the results section. BASIC METABOLIC PANEL, AM 06/03/2022 4:57 CALCIUM TOTAL AM OFFICE SPECIALIST COMPLETE BLOOD COUNT W/ AM 06/03/2022 4:57 DIFFERENTIAL AM OFFICE SPECIALIST CALCIUM LEVEL TOTAL AM 06/02/2022 4:23 Resul ts for this AM OFFICE SPECIALIST procedure are i n the results section. .GLOMERULAR FILTRATION AM 06/02/2022 4:23 Re sults for this RATE AM OFFICE SPECIALIST procedure are i n the results section. SERUM CREATININE AM 06/02/2022 4:23 Results for this AM OFFICE SPECIALIST procedure are i n the results section. ELECTROLYTE PANEL AM 06/02/2022 4:23 Results for this AM OFFICE SPECIALIST procedure are i n the results section. BLOOD UREA NITROGEN AM 06/02/2022 4:23 Resul ts for this AM OFFICE SPECIALIST procedure are i n the results section. GLUCOSE LEVEL AM 06/02/2022 4:23 Results for this AM OFFICE SPECIALIST procedure are i n the results section. MANUAL DIFFERENTIAL AM 06/02/2022 4:23 Resul ts for this AM OFFICE SPECIALIST procedure are i n the results section. Results CBC AM 06/02/2022 4:23 Results for this AM OFFICE SPECIALIST procedure are i n the results section. PHOSPHORUS LEVEL AM 06/02/2022 4:23 Results for this AM OFFICE SPECIALIST procedure are i n the results section. MAGNESIUM LEVEL AM 06/02/2022 4:23 Results f or this AM OFFICE SPECIALIST procedure are i n the results section. BASIC METABOLIC PANEL, AM 06/02/2022 4:23 CALCIUM TOTAL AM OFFICE SPECIALIST COMPLETE BLOOD COUNT W/ AM 06/02/2022 4:23 DIFFERENTIAL AM OFFICE SPECIALIST CALCIUM LEVEL TOTAL AM 06/01/2022 3:58 Resu lts for this AM OFFICE SPECIALIST procedure are i n the results section. .GLOMERULAR FILTRATION AM 06/01/2022 3:58 Re sults for this RATE AM OFFICE SPECIALIST procedure are i n the results section. SERUM CREATININE AM 06/01/2022 3:58 Results for this AM OFFICE SPECIALIST procedure are i n the results section. ELECTROLYTE PANEL AM 06/01/2022 3:58 Results for this AM OFFICE SPECIALIST procedure are i n the results section. BLOOD UREA NITROGEN AM 06/01/2022 3:58 Resul ts for this AM OFFICE SPECIALIST procedure are i n the results section. GLUCOSE LEVEL AM 06/01/2022 3:58 Results for this AM OFFICE SPECIALIST procedure are i n the results section. MANUAL DIFFERENTIAL AM 06/01/2022 3:58 Resul ts for this AM OFFICE SPECIALIST procedure are i n the results section. Results CBC AM 06/01/2022 3:58 Results for this AM OFFICE SPECIALIST procedure are i n the results section. PHOSPHORUS LEVEL AM 06/01/2022 3:58 Results for this AM OFFICE SPECIALIST procedure are i n the results section. MAGNESIUM LEVEL AM 06/01/2022 3:58 Results f or this AM OFFICE SPECIALIST procedure are i n the results section. BASIC METABOLIC PANEL, AM 06/01/2022 3:58 CALCIUM TOTAL AM OFFICE SPECIALIST COMPLETE BLOOD COUNT W/ AM 06/01/2022 3:58 DIFFERENTIAL AM OFFICE SPECIALIST US LEG VENOUS DOPPLER Routine 05/31/2022 9:19 Res ults for this BILATERAL AM OFFICE SPECIALIST procedure are i n the results section. ECHOCARDIOGRAM 2D Routine 05/31/2022 9:11 Results for this COMPLETE AM OFFICE SPECIALIST procedure are i n the results section. CALCIUM LEVEL TOTAL Now 05/31/2022 5:10 Resul ts for this AM OFFICE SPECIALIST procedure are i n the results section. .GLOMERULAR FILTRATION Now 05/31/2022 5:10 Re sults for this RATE AM OFFICE SPECIALIST procedure are i n the results section. SERUM CREATININE Now 05/31/2022 5:10 Results for this AM OFFICE SPECIALIST procedure are i n the results section. ELECTROLYTE PANEL Now 05/31/2022 5:10 Results for this AM OFFICE SPECIALIST procedure are i n the results section. BLOOD UREA NITROGEN Now 05/31/2022 5:10 Resul ts for this AM OFFICE SPECIALIST procedure are i n the results section. GLUCOSE LEVEL Now 05/31/2022 5:10 Results for this AM OFFICE SPECIALIST procedure are i n the results section. MANUAL DIFFERENTIAL STAT 05/31/2022 5:10 Resul ts for this AM OFFICE SPECIALIST procedure are i n the results section. Results CBC STAT 05/31/2022 5:10 Results for this AM OFFICE SPECIALIST procedure are i n the results section. NT PRO BNP Routine 05/31/2022 5:10 Results for this AM OFFICE SPECIALIST procedure are i n the results section. TROPONIN T Routine 05/31/2022 5:10 Results for this AM OFFICE SPECIALIST procedure are i n the results section. PHOSPHORUS LEVEL Now 05/31/2022 5:10 Results for this AM OFFICE SPECIALIST procedure are i n the results section. MAGNESIUM LEVEL Now 05/31/2022 5:10 Results f or this AM OFFICE SPECIALIST procedure are i n the results section. BASIC METABOLIC PANEL, Now 05/31/2022 5:10 CALCIUM TOTAL AM OFFICE SPECIALIST COMPLETE BLOOD COUNT W/ Now 05/31/2022 5:10 DIFFERENTIAL AM OFFICE SPECIALIST CT CHEST W CONTRAST Routine 05/31/2022 12:54 Resu lts for this AM OFFICE SPECIALIST procedure are i n the results section. CT ABDOMEN PELVIS W STAT 05/31/2022 12:54 Resu lts for this CONTRAST AM OFFICE SPECIALIST procedure are i n the results section. COVID-19 (SARS-COV-2) Now 05/30/2022 10:57 Re sults for this ASYMPTOMATIC-LT PM OFFICE SPECIALIST procedure ar e in the results section. CONFIRM ABORH TYPE STAT 05/30/2022 8:22 Result s for this PM OFFICE SPECIALIST procedure are i n the results section. TMP INTERPRETATION STAT 05/30/2022 7:33 Result s for this ANTIBODY SCREEN NEGATIVE PM OFFICE SPECIALIST pro cedure are in the results section. CLOT EXPIRATION DATE STAT 05/30/2022 7:33 Resu lts for this PM OFFICE SPECIALIST procedure are i n the results section. FRACTIONATED BILIRUBIN Now 05/30/2022 7:33 Re sults for this PM OFFICE SPECIALIST procedure are i n the results section. TOTAL PROTEIN Now 05/30/2022 7:33 Results for this PM OFFICE SPECIALIST procedure are i n the results section. ASPARTATE Now 05/30/2022 7:33 Results for this AMINOTRANSFERASE PM OFFICE SPECIALIST procedure a re in the results section. ALANINE AMINOTRANSFERASE Now 05/30/2022 7:33 Results for this PM OFFICE SPECIALIST procedure are i n the results section. ALKALINE PHOSPHATASE Now 05/30/2022 7:33 Resu lts for this PM OFFICE SPECIALIST procedure are i n the results section. ALBUMIN LEVEL Now 05/30/2022 7:33 Results for this PM OFFICE SPECIALIST procedure are i n the results section. CALCIUM LEVEL TOTAL Now 05/30/2022 7:33 Resul ts for this PM OFFICE SPECIALIST procedure are i n the results section. .GLOMERULAR FILTRATION Now 05/30/2022 7:33 Re sults for this RATE PM OFFICE SPECIALIST procedure are i n the results section. SERUM CREATININE Now 05/30/2022 7:33 Results for this PM OFFICE SPECIALIST procedure are i n the results section. ELECTROLYTE PANEL Now 05/30/2022 7:33 Results for this PM OFFICE SPECIALIST procedure are i n the results section. BLOOD UREA NITROGEN Now 05/30/2022 7:33 Resul ts for this PM OFFICE SPECIALIST procedure are i n the results section. GLUCOSE LEVEL Now 05/30/2022 7:33 Results for this PM OFFICE SPECIALIST procedure are i n the results section. MANUAL DIFFERENTIAL STAT 05/30/2022 7:33 Resul ts for this PM OFFICE SPECIALIST procedure are i n the results section. Results CBC STAT 05/30/2022 7:33 Results for this PM OFFICE SPECIALIST procedure are i n the results section. ANTIBODY SCREEN STAT 05/30/2022 7:33 Results f or this PM OFFICE SPECIALIST procedure are i n the results section. ABORH STAT 05/30/2022 7:33 Results for this PM OFFICE SPECIALIST procedure are i n the results section. LACTIC ACID, VENOUS STAT 05/30/2022 7:33 Resul ts for this PM OFFICE SPECIALIST procedure are i n the results section. TYPE AND SCREEN STAT 05/30/2022 7:33 PM OFFICE SPECIALIST APTT Now 05/30/2022 7:33 Results for this PM OFFICE SPECIALIST procedure are i n the results section. PROTHROMBIN TIME Now 05/30/2022 7:33 Results for this PM OFFICE SPECIALIST procedure are i n the results section. PHOSPHORUS LEVEL Now 05/30/2022 7:33 Results for this PM OFFICE SPECIALIST procedure are i n the results section. MAGNESIUM LEVEL Now 05/30/2022 7:33 Results f or this PM OFFICE SPECIALIST procedure are i n the results section. COMPREHENSIVE METABOLIC Now 05/30/2022 7:33 PANEL PM OFFICE SPECIALIST COMPLETE BLOOD COUNT W/ Now 05/30/2022 7:33 DIFFERENTIAL PM OFFICE SPECIALIST BLOODCULTURE Now 05/30/2022 7:33 Results for this PM OFFICE SPECIALIST procedure are i n the results section. PATHOLOGY OUTSIDE Routine 05/16/2022 Results fo r this INTERPRETATION procedure are in the results section. OSI CT PELVIS Routine 05/15/2022 2:22 Results for this PM OFFICE SPECIALIST procedure are i n the results section. after 07/01/2021 Results .Serum Creatinine (06/03/2022 4:57 AM OFFICE SPECIALIST)Only the most recent of5 resultswithin the time period is included. P athologist Signature Creatinine 0.59 0.51 - 0.95 [facility] [place] mg/dL [facility] Specimen Anatomical Collection Method Collection Time Receive d Time (Source) Location / / Volume Laterality Blood 06/03/2022 4:57 AM 2 5:04 OFFICE SPECIALIST AM OFFICE SPECIALIST Aye Brody MD LAB BLOOD ORDERABLES Performing Organization Address City/State/ZIP Code Phon e Number [facility] Unless otherwise noted, [place] [address] [place] all lab tests performed by: Division of Pathology and Laboratory Medicine [address] (ABNORMAL) .CBC (06/03/2022 4:57 AM OFFICE SPECIALIST)Only the most recent of5 resultswithin the time period is included. athologist Signature WBC 4.5 4.0 - 11.0 [facility] RBC 3.29 (L) 4.00 - [place] MD 5.50 M/[facility] Hgb 10.3 (L) 12.0 - [place] 16.0 gm/dL [facility] Hct 31.3 (L) 37.0 - [place] MD 47.0 % [facility] MCV 95 82 - 98 [facility] MCH 31.3 (H) 27.0 - [place] 31.0 pg [facility] MCHC 32.9 31.0 - [place] 36.0 gm/dL [facility] RDW-SD 45.6 35.1 - [place] MD 46.[address] [facility] RDW-CV 13.0 12.0 - [place] MD 15.5 % [facility] Platelet count 223 140 - 440 [facility] MPV 8.9 4.0 - 10.4 [facility] INRBC 0.0 <=0.0 % [facility] Comment: The INRBC (instrument NRBC) value reflec ts the enumeration of nucleated red blood cells contained i n a 200uL sample of whole blood analyzed by the instrumen t. This value may differ from the NRBC value reported in a manual differential, which is based on a 100 cell differentia l. Specimen Anatomical Collection Method Collection Time Receive d Time (Source) Location / / Volume Laterality Blood 06/03/2022 4:57 AM 2 5:04 OFFICE SPECIALIST AM OFFICE SPECIALIST Aye Brody MD LAB BLOOD ORDERABLES Performing Organization Address City/State/ZIP Code Phon e Number [facility] Unless otherwise noted, [address] all lab tests performed by: Division of Pathology and Laboratory Medicine [address] [facility] Glomerular Filtration Rate (06/03/2022 4:57 AM OFFICE SPECIALIST)Only the most recent of5 resultswithin the time period is included. athologist Signature eGFR 109 >=60 [facility] mL/min/1.[address] [facility] CENTER sq. m Comment: The eGFRcr is calculated with the 2020 KD-EPI creatinine equation using creatinine, patient's age, and sex for adults 18 years of age and older. Other factors, especially muscle mass, may affect accuracy and need to be considered. According to the Kidney Disease: Improvi ng Global Outcomes (KDIGO) CKD Work Group 2012 Clinical Practice Guideline, chronic kidney disease (CKD) is defined as the abnormalities of kidney structure or function, present for more than 3 months, with implications for health. CKD should be c lassified by cause, GFR category, and albuminuria category. KDIGO guidelines provide the following GFR categories Stage Description GFR mL/min/1.73 m2 G1* Normal or high >= 90 G2* Mildly decreased 60-89 G3a Mildly to moderately decreased 45-59 G3b Moderately to severely decreased 30- 44 G4 Severely decreased 15-29 G5 Kidney failure <15 *In the absence of evidence of kidney da mage, neither G1 nor G2 fulfill criteria for CKD. Specimen Anatomical Collection Method Collection Time Receive d Time (Source) Location / / Volume Laterality Blood 06/03/2022 4:57 AM 5:04 OFFICE SPECIALIST AM OFFICE SPECIALIST Aye Brody MD LAB BLOOD ORDERABLES Performing Organization Address City/[facility] [address] [facility] Phon e Number [facility] Unless otherwise noted, [place] [address] [place] all lab tests performed by: Division of Pathology and Laboratory Medicine [address] [place] (ABNORMAL) Differential (06/03/2022 4:57 AM OFFICE SPECIALIST)Only the most recent of5 results within the time period is included. athologist Signature Neutrophil % 48.4 42.0 - [facility] 66.0 % [facility] Lymphocyte % 38.7 24.0 - [facility] 44.0 % [facility] Monocyte % 10.2 (H) 2.0 - 7.0 [facility] % [facility]ENTER Eosinophil % 1.6 1.0 - 4.0 [facility] [place] [facility] Basophil % 0.9 0.0 - 1.0 [facility] IGRE % 0.2 0.0 - 0.4 [facility] Comment: IGRE % count includes Metamyelo cytes, Myelocytes, and Promyelocytes. Neutrophil Abs 2.18 1.70 - 7.30 K/uL [facility] Lymphocyte Abs 1.74 1.00 - 4.80 K/uL [facility] Monocyte Abs 0.46 0.08 - 0.70 K/uL [facility] Eosinophil Abs 0.07 0.04 - 0.40 K/uL [facility] Basophil Abs 0.04 0.00 - 0.10 K/uL [place] N[facility] IG Abs 0.01 0.00 - 0.04 K/uL [place] [facility] GURPREET Rivas [facility] Specimen Anatomical Collection Method Collection Time Receive d Time (Source) Location / / Volume Laterality Blood 06/03/2022 4:57 AM 2 5:04 OFFICE SPECIALIST AM OFFICE SPECIALIST Aye Brody MD LAB BLOOD ORDERABLES Performing Organization Address City/State/ZIP Code Phon e Number [facility] Unless otherwise noted, [address] all lab tests performed by: Division of Pathology and Laboratory Medicine [address] [facility] BUN (06/03/2022 4:57 AM OFFICE SPECIALIST)Only the most recent of5 resultswithin the time period is included. P athologist Signature BUN 9 6 - 23 [facility] mg/dL [facility] Specimen Anatomical Collection Method Collection Time Receive d Time (Source) Location / / Volume Laterality Blood 06/03/2022 4:57 AM 2 5:04 OFFICE SPECIALIST AM OFFICE SPECIALIST Aye Brody MD LAB BLOOD ORDERABLES Performing Organization Address City/State/[facility] Phon e Number [facility] Unless otherwise noted, [address] all lab tests performed by: Division of Pathology and Laboratory Medicine [address] [facility] Phosphorus Level (06/03/2022 4:57 AM OFFICE SPECIALIST)Only the most recent of5 resultswithin the time period is included. athologist Signature Phosphorus 3.4 2.5 - 4.5 [facility] mg/dL [facility] Specimen Anatomical Collection Method Collection Time Receive d Time (Source) Location / / Volume Laterality Blood 06/03/2022 4:57 AM 2 5:04 OFFICE SPECIALIST AM OFFICE SPECIALIST Aye Brody MD LAB BLOOD ORDERABLES Performing Organization Address [facility] [address]/[facility] Phon e Number [facility] Unless otherwise noted, [address] all lab tests performed by: Division of Pathology and Laboratory Medicine [address] [place] Magnesium Level (06/03/2022 4:57 AM OFFICE SPECIALIST)Only the most recent of5 resultswithin the time period is included. athologist Signature Magnesium 1.9 1.6 - 2.6 [facility] mg/dL [facility] Specimen Anatomical Collection Method Collection Time Receive d Time (Source) Location / / Volume Laterality Blood 06/03/2022 4:57 AM 2 5:04 OFFICE SPECIALIST AM OFFICE SPECIALIST Aye Brody MD LAB BLOOD ORDERABLES Performing Organization Address City/[facility] [address]/[facility] Phon e Number [facility] Unless otherwise noted, [address] all lab tests performed by: Division of Pathology and Laboratory Medicine [address] [place] (ABNORMAL) Glucose Level (06/03/2022 4:57 AM OFFICE SPECIALIST)Only the most recent of5 resultswithin the time period is included. athologist Signature Glucose Level 104 (H) 70 - 99 [facility] mg/dL [facility] Comment: Effective 01/17/16, the glucose reference intervals have been updated based on [place] [employer] guidelines (Standards of Medical Care in Diabetes 2016. Diabetes Care 2016; 39: S13-S22). Fasting blood glucose: Normal: 70-99 mg/dL Impaired fasting glucose (increased risk for diabetes or pre-diabetes): 100- 125 mg/dL Diabetes mellitus: >/=126 mg/dL Random blood glucose: Normal: 70-199 mg/dL Note: Random glucose >100 mg/dL is assoc iated with increased risk for diabetes Specimen Anatomical Collection Method Collection Time Receive d Time (Source) Location / / Volume Laterality Blood 06/03/2022 4:57 AM 2 5:04 OFFICE SPECIALIST AM OFFICE SPECIALIST Authorizing Provider Result Rupa Brody MD LAB BLOOD ORDERABLES Performing Organization Address City/[facility] [address]/[facility] Phon e Number [facility] Unless otherwise noted, [address] all lab tests performed by: Division of Pathology and Laboratory Medicine [facility] [place] Calcium Level (06/03/2022 4:57 AM OFFICE SPECIALIST)Only the most recent of5 resultswithin the time period is included. athologist Signature Calcium Lvl 9.3 8.4 - 10.2 [facility] mg/dL [facility] Specimen Anatomical Collection Method Collection Time Receive d Time (Source) Location / / Volume Laterality Blood 06/03/2022 4:57 AM 2 5:04 OFFICE SPECIALIST AM OFFICE SPECIALIST Authorizing Provider Result Rupa Brody MD LAB BLOOD ORDERABLES Performing Organization Address [facility] [address]/[facility] Phon e Number [facility] Unless otherwise noted, [address] all lab tests performed by: Division of Pathology and Laboratory Medicine [facility] [place] (ABNORMAL) Electrolyte Panel (06/03/2022 4:57 AM OFFICE SPECIALIST)Only the most recent of5 resultswithin the time period is included. P athologist Signature Sodium Lvl 132 (L) 136 - 145 [facility] mEq/L [facility] Potassium Lvl 4.8 3.5 - 5.1 [facility] mEq/L [facility] Chloride 97 (L) 98 - 107 [facility] mEq/L [facility] CO2 26 22 - 29 [facility] mEq/L [facility] Anion Gap 9 4 - 14 [facility] mEq/L [facility] Specimen Anatomical Collection Method Collection Time Receive d Time (Source) Location / / Volume Laterality Blood 06/03/2022 4:57 AM 2 5:04 OFFICE SPECIALIST AM OFFICE SPECIALIST Authorizing Provider Result Rupa Brody MD LAB BLOOD ORDERABLES Performing Organization Address City/[facility] [address]/[facility] Phon e Number [facility] Unless otherwise noted, [address] all lab tests performed by: Division of Pathology and Laboratory Medicine [facility] [place] US Leg Venous Doppler Bilateral (05/31/2022 9:19 AM OFFICE SPECIALIST) Anatomical Region Laterality Modality Leg, Extremity Ultrasound Specimen (Source) Anatomical Collection Method Collection Time Re ceived Time Location / / Volume Laterality 05/31/2022 10:04 AM OFFICE SPECIALIST Impressions 05/31/2022 10:06 AM OFFICE SPECIALIST Negative for deep venous thrombosis in t he bilateral lower extremities. Narrative 05/31/2022 10:06 AM OFFICE SPECIALIST Examination: [facility], 05/31/2022 9:19 AM Clinical History: Rectal pain Indication: Other:, has PE, Eval for DVT Comparison: None available. Technique: Grayscale and color/spectral Doppler ultrasound of the bilateral lower extremity veins was performed. Findings: The bilateral common femoral, femoral, a nd popliteal veins demonstrate color flow, compressibility, and response to augmentation. The visualized posterior tibial, peronea l and anterior tibial veins are patent and compressible. Procedure Note Ponce Mcgee MD - 05/31/2022Forma tting of this note might be different from the original. Examination: US LEG VENOUS DOPPLER [facility], 05/31/2022 9:19 AM Clinical History: Rectal pain Indication: Other:, has PE, Eval for DVT Comparison: None available. Technique: Grayscale and color/spectral Doppler ultrasound of the bilateral lower extremity veins was performed. Findings: The bilateral common femoral, femoral, a nd popliteal veins demonstrate color flow, compressibility, and response to augmentation. The visualized posterior tibial, peronea l and anterior tibial veins are patent and compressible. IMPRESSION: Negative for deep venous thrombosis in t he bilateral lower extremities. Aye Brody MD [facility] US ORDERABLES Echocardiogram 2D Complete (05/31/2022 9:11 AM OFFICE SPECIALIST) Specimen (Source) Anatomical Collection Method Collection Time Re ceived Time Location / / Volume Laterality 05/31/2022 7:39 AM OFFICE SPECIALIST Narrative [facility] - 05/31/2022 11:32 AM OFFICE SPECIALIST Echocardiographic Report Interpretation Summary A complete two-dimensional transthoracic echocardiogram was performed (2D, M- mode, Spectral and color Doppler). The study was technically difficult. There is no comparison study available. Normal left ventricular size and functio n. LV ejection fraction calculated using th e bi-plane method of disks is 65 %. The right ventricle is normal in size an d function. Right ventricular systolic pressure is n ormal. There is no pericardial effusion. Left Ventricle: Normal left ventricular size and systoli c function. There is normal left ventricular wall thickness. LV ejection fraction calculated using the bi-plane method of disks is 65 %. The left ventricular wall motion is normal. I WMSI = 1.00 % Normal = 1 00 Segments Size 1-2 small X - Cannot 1 - Normal 2 - 3 - Akinetic 4 - Dyskinetic3-5 moderate Interpret Hyp okinetic 6-14 large 5 - Aneurysmal 15-16 diffuse 3D imaginD volumes were not performed in this st udy. Cardiac Mechanics/Speckle Tracking Imagi ng: Speckle tracking imaging was not perform ed in this study. (GE Study). Diastology: Normal diastolic function. Right Ventricle: The right ventricle is normal in size an d function. Normal RV systolic function using TAPSE criteria. Atria: Atria are normal in size. Mitral Valve: Mild thickening changes are noted. There is no mitral valve stenosis. There is trace mitral regurgitation. Tricuspid Valve: The tricuspid valve is not well visualiz ed, but is grossly normal. There is no tricuspid valve stenosis. There is trace tricuspid regurgitation. Right ventricular systolic pressure is normal. Aortic Valve: The aortic valve is trileaflet. The aort ic valve opens well. No aortic regurgitation is present. Pulmonic Valve: The pulmonic valve is not well visualize d. There is no pulmonic valvular stenosis. Trace pulmonic valvular regurgitation. Great Vessels: The aortic root is normal size. The infe rior vena cava demonstrates normal size and decreased respiratory variation. Pericardium/Pleural: There is no pericardial effusion. Preliminary Reviewer Luis Jiménez. MMode/2D Measurements IVSd: 1.1 cm LVIDd: 4.7 cm LVPWd: 0.91 cm Ao root diam: 3.2 cm LVOT diam: 2.0 cm Ao root area: 8.1 cm2 LVOT area: 3.0 cm2 EDV(MOD-A4C): 112.7 ml EDV(MOD-A2C): 123.1 ml ESV(MOD-A4C): 39.1 ml ESV(MOD-A2C): 42.1 ml EF(MOD-A4C): 65.3 % EF(MOD-A2C): 65.8 % LAV(MOD-A2C): 70.8 ml EDV(MOD-bp): 118.7 ml LAV(MOD-A4C): 48.8 ml ESV(MOD-bp): 41.7 ml LAV(MOD-bp): 62.3 ml EF(MOD-bp): 64.9 % RWT: 0.39 cm TAPSE (>1.6): 2.6 cm Doppler Measurements MV E max norman: 107.9 cm/sec MV V2 max: 123.3 cm/sec MV A max norman: 116.8 cm/sec MV max P.1 mmHg MV E/A: 0.92 MV V2 mean: 74.2 cm/sec MV mean P.5 mmHg MV V2 VTI: 27.8 cm MVA(VTI): 3.0 cm2 MV P1/2t max norman: 107.4 cm/sec Ao V2 max: 167.6 cm/sec MV P1/2t: 61.1 msec Ao max P.2 mmHg MVA(P1/2t): 3.6 cm2 Ao V2 mean: 104.6 cm/sec Ao mean P.1 mmHg MV dec slope: 514.5 cm/sec2 Ao V2 VTI: 29.8 cm MIGUEL ANGEL(I,D): 2.8 cm2 MIGUEL ANGEL(V,D): 2.5 cm2 LV V1 max P.6 mmHg SV(LVOT): 83.9 ml LV V1 mean P.8 mmHg LV V1 max: 138.0 cm/sec LV V1 mean: 91.3 cm/sec LV V1 VTI: 27.7 cm PA V2 max: 101.9 cm/sec Med Peak E' Norman: 7.1 cm/sec PA max P.2 mmHg PA V2 mean: 62.2 cm/sec PA mean P.8 mmHg PA V2 VTI: 17.7 cm Lat Peak E' Norman: 10.2 cm/sec TR max norman: 229.5 cm/sec TR max P.1 mmHg RVSP(TR): 29.1 mmHg RAP systole: 8.0 mmHg Dimensionless Index: 0.82 E/e' (avg): 12.5 E/e' (lat): 10.6 E/e' (sept): 15.1 65 Procedure Note Tong Hameed MD - 05/31/20 22 Echocardiographic Report Interpretation Summary A complete two-dimensional transthoracic echocardiogram was performed (2D, M- mode, Spectral and color Doppler). The study was technically difficult. There is no comparison study available. Normal left ventricular size and functio n. LV ejection fraction calculated using th e bi-plane method of disks is 65 %. The right ventricle is normal in size an d function. Right ventricular systolic pressure is n ormal. There is no pericardial effusion. Left Ventricle: Normal left ventricular size and systoli c function. There is normal left ventricular wall thickness. LV ejection fraction calculated using the bi-plane method of disks is 65 %. The left ventricular wall motion is normal. I WMSI = 1.00 % Normal = 100 Segments Size 1-2 small X - Cannot 1 - Normal 2 - 3 - Akinetic 4 - Dyskinetic3-5 moderate Interpret Hypokinetic 6-14 large 5 - Aneurysmal 15-16 diffuse 3D imaginD volumes were not performed in this st [facility]. Cardiac Mechanics/Speckle Tracking Imagi ng: Speckle tracking imaging was not perform ed in this study. (GE Study). Diastology: Normal diastolic function. Right Ventricle: The right ventricle is normal in size an d function. Normal RV systolic function using TAPSE criteria. Atria: Atria are normal in size. Mitral Valve: Mild thickening changes are noted. There is no mitral valve stenosis. There is trace mitral regurgitation. Tricuspid Valve: The tricuspid valve is not well visualiz ed, but is grossly normal. There is no tricuspid valve stenosis. There is trace tricuspid regurgitation. Right ventricular systolic pressure is normal. Aortic Valve: The aortic valve is trileaflet. The aort ic valve opens well. No aortic regurgitation is present. Pulmonic Valve: The pulmonic valve is not well visualize d. There is no pulmonic valvular stenosis. Trace pulmonic valvular regurgitation. Great Vessels: The aortic root is normal size. The infe rior vena cava demonstrates normal size and decreased respiratory variation. Pericardium/Pleural: There is no pericardial effusion. Preliminary Reviewer Luis Jiménez. MMode/2D Measurements IVSd: 1.1 cm LVIDd: 4.7 cm LVPWd: 0.91 cm Ao root diam: 3.2 cm LVOT diam: 2.0 cm Ao root area: 8.1 cm2 LVOT area: 3. 0 cm2 EDV(MOD-A4C): 112.7 ml EDV(MOD-A2C): 123.1 ml ESV(MOD-A4C): 39.1 ml ESV(MOD-A2C): 42.1 ml EF(MOD-A4C): 65.3 % EF(MOD-A2C): 65 .8 % LAV(MOD-A2C): 70.8 ml EDV(MOD-bp): 118.7 ml LAV(MOD-A4C): 48.8 ml ESV(MOD-bp): 41.7 ml LAV(MOD-bp): 62. 3 ml EF(MOD-bp): 64.9 % RWT: 0.39 cm TAPSE (>1.6): 2.6 cm Doppler Measurements MV E max norman: 107.9 cm/sec MV V2 max: 123.3 cm/sec MV A max norman: 116.8 cm/sec MV max PG : 6.1 mmHg MV E/A: 0.92 MV V2 mean: 74.2 cm/se c MV mean P.5 mmHg MV V2 VTI: 27.8 cm MVA(VTI): 3.0 cm2 MV P1/2t max norman: 107.4 cm/sec Ao V2 max: 167.6 cm/sec MV P1/2t: 61.1 msec Ao max P.2 mmHg MVA(P1/2t): 3.6 cm2 Ao V2 mean: 104 .6 cm/sec Ao mean P.1 mmHg MV dec slope: 514.5 cm/sec2 Ao V2 VT I: 29.8 cm MIGUEL ANGEL(I,D): 2.8 cm2 MIGUEL ANGEL(V,D): 2.5 cm2 LV V1 max P.6 mmHg SV(LVOT): 83 .9 ml LV V1 mean P.8 mmHg LV V1 max: 138.0 cm/sec LV V1 mean: 91.3 cm/sec LV V1 VTI: 27.7 cm PA V2 max: 101.9 cm/sec Med Peak E' V el: 7.1 cm/sec PA max P.2 mmHg PA V2 mean: 62.2 cm/sec PA mean P.8 mmHg PA V2 VTI: 17.7 cm Lat Peak E' Norman: 10.2 cm/sec TR max norman: 229.5 cm/sec TR max P.1 mmHg RVSP(TR): 29.1 mmHg RAP systole: 8.0 mmHg Dimensionless Index: 0.82 E/e' (avg): 12.5 E/e' (lat): 10.6 E/e' (sept): 15.1 65 Aye Brody MD CV ECHO ORDERABLES Performing Organization Address City/State/ZIP Code Phon e Number [facility] (ABNORMAL) NT-Pro BNP (In-House) (05/31/2022 5:10 AM OFFICE SPECIALIST) athologist Signature NT ProBNP 394 (H) <=125 pg/mL [facility] Specimen Anatomical Collection Method Collection Time Receive d Time (Source) Location / / Volume Laterality Blood 05/31/2022 5:10 AM 5:30 OFFICE SPECIALIST AM OFFICE SPECIALIST Aye Brody MD LAB BLOOD ORDERABLES Performing Organization Address City/[facility] [address]/ZIP Code Phon e Number [facility] Unless otherwise noted, [place] [address] [place] all lab tests performed by: Division of Pathology and Laboratory Medicine [facility] [place] Troponin T (In-House) (05/31/2022 5:10 AM OFFICE SPECIALIST) athologist Signature Troponin T 11 <=18 ng/L [facility] Comment: < 19 ng/L Suggest retest at 3 to 6 hours later to rule out myocardial infarction >= 19 to <=52 ng/L Pos sible myocardial injury. Suggest retest at 3 hours. - a change of < 20 ng/L, retest at 6 hours - a change of >= 20 ng/L, suggestive of myocardial infarction > 52 ng/L Suggestive of myocardial infarction Critical value will be reported when cTn T is > 52 ng/L and only reported for the first in a series. Hemolyzed specimens with Hemolysis Index >100 (100 mg/dl or moderate hemolysis) may cause interferences and falsely low results. Specimen Anatomical Collection Method Collection Time Receive d Time (Source) Location / / Volume Laterality Blood 05/31/2022 5:10 AM 5:30 OFFICE SPECIALIST AM OFFICE SPECIALIST Aye Brody MD LAB BLOOD ORDERABLES Performing Organization Address City/State/ZIP Code Phon e Number [facility] Unless otherwise noted, [place] [address] CENTER all lab tests performed by: Division of Pathology and Laboratory Medicine [address] [address] Chest with Contrast (05/31/2022 12:54 AM OFFICE SPECIALIST) Anatomical Region Laterality Modality Chest Computed Tomography Specimen (Source) Anatomical Collection Method Collection Time Re ceived Time Location / / Volume Laterality 05/31/2022 1:22 AM OFFICE SPECIALIST Impressions 05/31/2022 9:44 AM OFFICE SPECIALIST 1. There is a filling defect within a right lower lobe lobar and segmental pulmonary arteries compatible with pulmonary embolism. No evidence of right heart strain. 2. Indeterminate small right lower lob e nodule may represent sequela from infectious inflammatory process or metastatic disease. Short-term follow-up CT advised for further assessment. 3. Consolidative airspace opacity with in the left lower lobe with internal air bronchograms and associated volume loss, most likely representing rounded atelectasis, although other etiologies cannot b e completely excluded. Attention on foll ow-up CT advised. 4. Small left pleural effusion/pleural thickening. 5. Enlarged left axillary/retropectora l and left upper mediastinal adenopathy and prominent subcentimeter subpleural nodes in the left paraspinal region in the left lower hemithorax, possibly reactive or metastatic in nature. I personally reviewed these image(s) karthikeyanwandy day with the resident's/fellow's interpretations, certify that if a procedure was performed I was physically present, and agree with the final report. Narrative 05/31/2022 9:44 AM OFFICE SPECIALIST FULL RESULT: Examination: CT CHEST W CONTRAST, 022 12:54 AM Clinical History: 51-year-old female wit h history of rectal carcinoma Indication: Uncontrolled pain. Comparison: None Technique: CT of the chest was performed with intravenous contrast. Findings: Lines and tubes: None Lungs and airways: The central airways a re patent. There is a rounded consolidative opacity in the left lower lobe with air bronchograms and associated volume loss in this lobe, suggestive of rounded at electasis. Nonspecific 3 mm right lower lobe nodule present on image 85 of series 7. Pleural spaces: Small left pleural effus ion/pleural thickening. No pneumothorax seen. Lymph nodes: Enlarged left axillary and retropectoral lymph nodes are seen measuring up to 1.6 cm in short axis (series 5, image 32). There is an enlarged left highest mediastinal node measuring 1.0 cm in short axis (series 5, image 28). Prom inent subcentimeter subpleural nodes are seen in the left paraspinal region in the left lower hemithorax, seen on images 89, 99, and 107. Cardiovascular: The heart is normal in s ize. No pericardial effusion. Coronary artery calcifications are not seen. The thoracic aorta and main pulmonary artery are normal in diameter. The RV/LV ratio is less than 1. A nonobstructive filling defect is seen within the right lower pulmonary artery extending to the segmental branches (series 9, images 159-180). Bones and soft tissues: No acute osseous abnormality. No soft tissue abnormalities Upper abdomen: For findings below the di aphragm please see concurrently obtained CT abdomen and pelvis with contrast. Notification Communication: Preliminary findings discussed with and acknowledged by: Dr. Hall (attending) by Dr. Marc Eagle on 05/31/2022 1:39 AM. Procedure Note Allyssa Linn C.B., MD - 05/31/2022Format ting of this note might be different from the original. FULL RESULT: Examination: CT CHEST W CONTRAST, 022 12:54 AM Clinical History: 51-year-old female wit h history of rectal carcinoma Indication: Uncontrolled pain. Comparison: None Technique: CT of the chest was performed with intravenous contrast. Findings: Lines and tubes: None Lungs and airways: The central airways a re patent. There is a rounded consolidative opacity in the left lower lobe with air bronchograms and associated volume loss in this lobe, suggestive of rounded atelectasis. Nonspecific 3 mm right lower lobe nodule present on image 85 of series 7. Pleural spaces: Small left pleural effus ion/pleural thickening. No pneumothorax seen. Lymph nodes: Enlarged left axillary and retropectoral lymph nodes are seen measuring up to 1.6 cm in short axis (series 5, image 32). There is an enlarged left highest mediastinal node measuring 1.0 cm in short axis (series 5, image 28). Prominent subcenti meter subpleural nodes are seen in the left paraspinal region in the left lower hemithorax, seen on images 89, 99, and 107. Cardiovascular: The heart is normal in s ize. No pericardial effusion. Coronary artery calcifications are not seen. The thoracic aorta and main pulmonary artery are normal in diameter. The RV/LV ratio is less than 1. A nonobstructive filling defect is seen within the right lower pulmonary artery extending to the segmental branches (series 9, images 159-180). Bones and soft tissues: No acute osseous abnormality. No soft tissue abnormalities Upper abdomen: For findings below the di aphragm please see concurrently obtained CT abdomen and pelvis with contrast. Notification Communication: Preliminary findings discussed with and acknowledged by: Dr. Hall (attending) by Dr. Marc Eagle on 05/31/2022 1:39 AM. IMPRESSION: 1. There is a filling defect within a ri ght lower lobe lobar and segmental pulmonary arteries compatible with pulmonary embolism. No evidence of right heart strain. 2. Indeterminate small right lower lobe nodule may represent sequela from infectious inflammatory process or metastatic disease. Short-term follow-up CT advised for further assessment. 3. Consolidative airspace opacity within the left lower lobe with internal air bronchograms and associated volume loss, most likely representing rounded atelectasis, although other etiologies cannot be completely excluded. Attention on follow -up CT advised. 4. Small left pleural effusion/pleural t hickening. 5. Enlarged left axillary/retropectoral and left upper mediastinal adenopathy and prominent subcentimeter subpleural nodes in the left paraspinal region in the left lower hemithorax, possibly reactive or metastatic in nature. I personally reviewed these image(s) karthikeyan ng with the resident's/fellow's interpretations, certify that if a procedure was performed I was physically present, and agree with the final report. Theo Clement MD IMG CT ORDERABLES CT Abdomen Pelvis with Contrast (05/31/2022 12:54 AM OFFICE SPECIALIST) Anatomical Region Laterality Modality Abdomen, Pelvis Computed Tomography Specimen (Source) Anatomical Collection Method Collection Time Re ceived Time Location / / Volume Laterality 05/31/2022 1:36 AM OFFICE SPECIALIST Impressions 05/31/2022 7:06 AM OFFICE SPECIALIST 1. Large lobulated mass in the anorect um, consistent with primary tumor. 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 2. No definite evidence of metastatic disease. Lymph nodes in the inguinal regions are slightly prominent, but remain morphologically normal. I personally reviewed these image(s) karthikeyan ng with the resident's/fellow's interpretations, certify that if a procedure was performed I was physically present, and agree with the final report. Narrative 05/31/2022 7:06 AM OFFICE SPECIALIST EXAM: CT ABDOMEN AND PELVIS WITH CONTRAST DATE: 05/31/2022 12:54 AM INDICATION: Uncontrolled pain ADDITIONAL INFORMATION: 51-year-old fema le with history of rectal carcinoma COMPARISON: None. TECHNIQUE: Volumetric CT acquisition of the abdomen and pelvis after the intravenous administration contrast. Axial, coronal and sagittal reconstructions. FINDINGS: Liver: No suspicious hepatic lesions. Biliary tree: No intra- or extrahepatic biliary ductal dilation. Gallbladder: Small gallstone (series 6, image 21). No wall thickening or pericholecystic fluid seen. Pancreas: Normal. Spleen: No focal splenic lesions Adrenals: Normal. Kidneys and ureters: Symmetric enhanceme nt of bilateral kidneys. No hydronephrosis. Bladder: Normal. Reproductive organs: No CT abnormality. Gastrointestinal tract: There is a lobul ated enhancing mass in the anorectum measuring 7.6 x 6 cm in cross-section (image 527 of series 6). A linear focus of air extending from the left gluteal crease i nto the mass (images 529-534 of series 6 ) suggests a fistula. Another collection of air located centrally in the tumor (image 530 of series 6) is somewhat removed from the lumen and may represent an additional site of fistulization. The mass is inseparable from the posteri or aspect of the vagina. Appendix: Normal. No adjacent inflammato ry changes Peritoneum and retroperitoneum: No ascit es or free air. No other fluid collection. Lymph nodes: No intra-abdominal or retro peritoneal lymphadenopathy. The lymph node in the left inguinal region measures 1.2 x 0.9 cm (image 299 of series 6 (. This node is elongated and maintained fatty hilum and is not highly suspicious. A s imilar appearing lymph nodes noted in the right inguinal region. There is no definite evidence of metastatic lymphadenopathy in the inguinal regions. Vasculature: Normal. Bones: No acute osseous abnormality. Mul tilevel degenerative changes. Soft tissues: Normal. Procedure Note Lita Moya MD - 05/31/2022Format ting of this note might be different from the original. EXAM: CT ABDOMEN AND PELVIS WITH CONTRAS T DATE: 05/31/2022 12:54 AM INDICATION: Uncontrolled pain ADDITIONAL INFORMATION: 51-year-old fema yumiko with history of rectal carcinoma COMPARISON: None. TECHNIQUE: Volumetric CT acquisition of the abdomen and pelvis after the intravenous administration contrast. Axial, coronal and sagittal reconstructions. FINDINGS: Liver: No suspicious hepatic lesions. Biliary tree: No intra- or extrahepatic biliary ductal dilation. Gallbladder: Small gallstone (series 6, image 21). No wall thickening or pericholecystic fluid seen. Pancreas: Normal. Spleen: No focal splenic lesions Adrenals: Normal. Kidneys and ureters: Symmetric enhanceme nt of bilateral kidneys. No hydronephrosis. Bladder: Normal. Reproductive organs: No CT abnormality. Gastrointestinal tract: There is a lobul ated enhancing mass in the anorectum measuring 7.6 x 6 cm in cross-section (image 527 of series 6). A linear focus of air extending from the left gluteal crease into the mass (images 529-534 of series 6) suggests a fistula. Another collection of air located centrally in the tumor (image 530 of series 6) is somewhat removed from the lumen and may represent an additional site of fistulization. The mass is inseparable from the posteri or aspect of the vagina. Appendix: Normal. No adjacent inflammato ry changes Peritoneum and retroperitoneum: No ascit es or free air. No other fluid collection. Lymph nodes: No intra-abdominal or retro peritoneal lymphadenopathy. The lymph node in the left inguinal region measures 1.2 x 0.9 cm (image 299 of series 6 (. This node is elongated and maintained fatty hilum and is not highly suspicious. A similar appearing l ymph nodes noted in the right inguinal region. There is no definite evidence of metastatic lymphadenopathy in the inguinal regions. Vasculature: Normal. Bones: No acute osseous abnormality. Mul tilevel degenerative changes. Soft tissues: Normal. IMPRESSION: 1. Large lobulated mass in the anorectum , consistent with primary tumor. 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 2. No definite evidence of metastatic di sease. Lymph nodes in the inguinal regions are slightly prominent, but remain morphologically normal. I personally reviewed these image(s) karthikeyan ng with the resident's/fellow's interpretations, certify that if a procedure was performed I was physically present, and agree with the final report. Meche Leonard MD IMG CT ORDERABLES COVID-19 (SARS-CoV-2)Asymptomatic-LT (05/30/2022 10:57 PM OFFICE SPECIALIST) [facility] Method Time Signature COVID19 Not Detected Not Detected LIAM ABBOTT (SARS-CoV-2) [facility] COVID19 SARS Inpatient [place] Indication Admission [facility] Covid 19 See Note [place] Comment [facility] Comment: The marlene SARS-CoV-2 nucleic acid test f or use on the marlene Deepika System is a real-time RT-PCR assay intended for the qualitative detection of SARS-CoV-2 (COVID-19) viral RNA in nasopharyngeal swabs from either individuals suspected of COVID-1 9 by their healthcare provider or from any individu al, including individuals without symptoms or other reasons to suspect COVID-19. A fact sheet for patients provided by the weblogic developer ([employer]) can be reviewed at: https://www.fda.gov/media/596901/keonloa rachna. A fact sheet for Health Care providers is provided by the weblogic developer ([employer]) and can be reviewed at: https://www.fda.gov/media/518344/download Results must be interpreted within the c ontext of all relevant clinical and laboratory findings and should not form the sole basis for a diagnosis or treatment decision. Positive results do not rule out bacterial infection or co- infection with other viruses. Negative results do not preclud e SARS-CoV-2 infection and must be combined with clinical observations, patient history, and/or epidemiological information. This assay has been authorized by the A for use only under Emergency Use Authorization (EUA) in laboratories that have been CLIA-certified to perform moderate-complexity and high-complexity tests. The Microbiology Laboratory at [facility], CLIA Accreditation #[id number] a de CAP Accreditation #[id number], verified the performance characteristics of this assay. Internal controls are used to monitor all stages of the test process. Specimen (Source) Anatomical Collection Method Collection Time Re ceived Time Location / / Volume Laterality Nasopharyngeal Swab 05/30/2022 10:57 12/0 01/2022 PM OFFICE SPECIALIST 11:04 PM OFFICE SPECIALIST Theo Clement MD MICROBIOLOGY - GENERAL ORDER OLIVIA Performing Organization Address City/State/ZIP Code Phon e Number [facility] CANCER Unless otherwise noted, [address] all lab tests performed by: Division of Pathology and Laboratory Medicine [address] [place] [address] [place] Confirm ABORh (05/30/2022 8:22 PM OFFICE SPECIALIST) athologist [facility] ABORh Confirm. A NEG [facility] Specimen Anatomical Collection Method Collection Time Receive d Time (Source) Location / / Volume Laterality Blood 05/30/2022 8:22 PM 2 8:33 OFFICE SPECIALIST PM OFFICE SPECIALIST Theo Clement MD BLOOD BANK TEST ORDERABLES Performing Organization Address City/[facility] [address]/ZIP Code Phon e Number [facility] Unless otherwise noted, [address] all lab tests performed by: Division of Pathology and Laboratory Medicine [address] [place] [address] Clot Expiration Date (05/30/2022 7:33 PM OFFICE SPECIALIST) [facility] Method [facility] T & S 06/02/2022 [facility] Specimen Anatomical Collection Method Collection Time Receive d Time (Source) Location / / Volume Laterality Blood 05/30/2022 7:33 PM 2 7:58 OFFICE SPECIALIST PM OFFICE SPECIALIST Meche Leonard MD BLOOD BANK TEST ORDERABLES Performing Organization Address City/[facility] [address]/ZIP Code Phon e Number [facility] Unless otherwise noted, [address] all lab tests performed by: Division of Pathology and Laboratory Medicine [address] [place] [address] Fractionated Bilirubin (05/30/2022 7:33 PM OFFICE SPECIALIST) [facility] Total <0.3 <=1.2 mg/dL [facility] Comment: Direct and indirect bilirubin will not b e reported when Total bilirubin result is <0.3 mg/dL Indocyanine Green (ICG) may cause falsel y elevated bilirubin results. Total and direct bilirubin must not be measured from samples containing indocyanine green. False elevation of total bilirubin can b e seen in patients with IgG concentrations above 28 g/L. Specimen Anatomical Collection Method Collection Time Receive d Time (Source) Location / / Volume Laterality Blood 05/30/2022 7:33 PM 2 7:43 OFFICE SPECIALIST PM OFFICE SPECIALIST Meche Leonard MD LAB BLOOD ORDERABLES Performing Organization Address City/[facility] [address]/ZIP Code Phon e Number [facility] Unless otherwise noted, [address] all lab tests performed by: Division of Pathology and Laboratory Medicine [address] [place] [address] TMP Interpretation Antibody Screen Negative (05/30/2022 7:33 PM OFFICE SPECIALIST) [facility] gist Method Time Signature TMP Auto Neg At the [facility] plasma shows no evidence of RBC alloantibodi es. Comment: JUAN DIEGO ANNA MD, PhD - [id number] Dictated by: JUAN DIEGO ANNA MD, Ph D - [id number] Dictated Date/Time: 05.31.2022 6:[address] Transcribed Date/Time: 05.31.2022 6:18 AM OFFICE SPECIALIST Electronically Signed By: JUAN DIEGO ANNA MD, PhD - [id number] on 05.31.2022 6:18 AM C Specimen Anatomical Collection Method Collection Time Receive d Time (Source) Location / / Volume Laterality Blood 05/30/2022 7:33 PM 2 7:58 OFFICE SPECIALIST PM OFFICE SPECIALIST Meche Leonard MD BLOOD BANK TEST ORDERABLES Performing Organization Address City/[facility] [address]/ZIP Code Phon e Number [facility] CANCER Unless otherwise noted, [address] all lab tests performed by: Division of Pathology and Laboratory Medicine [address] [place] [address] aPTT (05/30/2022 7:33 PM OFFICE SPECIALIST) P athologist Signature aPTT 27.2 22.8 - 34.2 [facility](s) [facility] Specimen Anatomical Collection Method Collection Time Receive d Time (Source) Location / / Volume Laterality Blood 05/30/2022 7:33 PM 2 7:39 OFFICE SPECIALIST PM OFFICE SPECIALIST Meche Leonard MD LAB BLOOD ORDERABLES Performing Organization Address City/[facility] [address]/ZIP Code Phon e Number [facility] Unless otherwise noted, [address] all lab tests performed by: Division of Pathology and Laboratory Medicine [address] [place] [address] VB Lactate (05/30/2022 7:33 PM OFFICE SPECIALIST) P athologist Signature V Lactate 0.5 0.5 - 1.6 [facility] mmol/L [facility] Specimen Anatomical Collection Method Collection Time Receive d Time (Source) Location / / Volume Laterality Blood 05/30/2022 7:33 PM 2 7:39 OFFICE SPECIALIST PM OFFICE SPECIALIST Meche Leonard MD LAB BLOOD ORDERABLES Performing Organization Address City/State/ZIP Code Phon e Number [facility] Unless otherwise noted, [address] all lab tests performed by: Division of Pathology and Laboratory Medicine [facility] ABORh (05/30/2022 7:33 PM OFFICE SPECIALIST) [facility] ABOR. A NEG [facility] Specimen Anatomical Collection Method Collection Time Receive d Time (Source) Location / / Volume Laterality Blood 05/30/2022 7:33 PM 2 7:58 OFFICE SPECIALIST PM OFFICE SPECIALIST Meche Leonard MD BLOOD BANK TEST ORDERABLES Performing Organization Address City/[facility] [address]/ZIP Code Phon e Number [facility] Unless otherwise noted, [address] all lab tests performed by: Division of Pathology and Laboratory Medicine [address] [place] [address] Blood culture (05/30/2022 7:33 PM OFFICE SPECIALIST) Component Value Ref Test Analysis Performed At [facility] gist Range Method Time Signature Final Report No growth [facility] Path Review - Culture yield may be affecte d by sample quality, prior treatment, and transportation conditions. [place] Bottle/Isolat ... YESSY or The results have been reviewed and electronically signed b y Pathologist: ANETTE Sher MD, PhD #[id number] C ENTER Specimen Anatomical Collection Method Collection Time Receive d Time (Source) Location / / Volume Laterality Blood 05/30/2022 7:33 PM 2 8:10 (Venipuncture-Ri OFFICE SPECIALIST PM OFFICE SPECIALIST ght) Comment: arm Meche Leonard MD MICROBIOLOGY - GENERAL ORDER OLIVIA Performing Organization Address City/State/ZIP Code Phon e Number [facility] Unless otherwise noted, [address] all lab tests performed by: Division of Pathology and Laboratory Medicine Alina Kelley Prothrombin Time with INR (05/30/2022 7:33 PM OFFICE SPECIALIST) athologist Signature PT 13.3 11.9 - 14.1 [facility]() [facility] INR 1.01 0.89 - 1.10 [facility] Specimen Anatomical Collection Method Collection Time Receive d Time (Source) Location / / Volume Laterality Blood 05/30/2022 7:33 PM 2 7:39 OFFICE SPECIALIST PM OFFICE SPECIALIST Meche Leonard MD LAB BLOOD ORDERABLES Performing Organization Address City/[facility] [address]/ZIP Code Phon e Number [facility] Unless otherwise noted, [address] all lab tests performed by: Division of Pathology and Laboratory Medicine [facility] Lisseth Kelley Antibody Screen (05/30/2022 7:33 PM OFFICE SPECIALIST) athologist Signature ABSC. Negative ABSC [facility] Specimen Anatomical Collection Method Collection Time Receive d Time (Source) Location / / Volume Laterality Blood 05/30/2022 7:33 PM 2 7:58 OFFICE SPECIALIST PM OFFICE SPECIALIST Meche Leonard MD BLOOD BANK TEST ORDERABLES Performing Organization Address City/State/ZIP Code Phon e Number [facility] Unless otherwise noted, [address] all lab tests performed by: Division of Pathology and Laboratory Medicine Alina Kelley ALT (05/30/2022 7:33 PM OFFICE SPECIALIST) athologist Signature ALT 31 <=33 U/L [facility] Specimen Anatomical Collection Method Collection Time Receive d Time (Source) Location / / Volume Laterality Blood 05/30/2022 7:33 PM 2 7:43 OFFICE SPECIALIST PM OFFICE SPECIALIST Meche Leonard MD LAB BLOOD ORDERABLES Performing Organization Address City/State/ZIP Code Phon e Number [facility] Unless otherwise noted, [address] all lab tests performed by: Division of Pathology and Laboratory Medicine [facility] Aspartate Aminotransferase (05/30/2022 7:33 PM OFFICE SPECIALIST) athologist [facility] AST 25 <=32 U/L [facility] Specimen Anatomical Collection Method Collection Time Receive d Time (Source) Location / / Volume Laterality Blood 05/30/2022 7:33 PM 2 7:43 OFFICE SPECIALIST PM OFFICE SPECIALIST Meche Leonard MD LAB BLOOD ORDERABLES Performing Organization Address City/[facility] [address]/ZIP Code Phon e Number [facility] Unless otherwise noted, [address] all lab tests performed by: Division of Pathology and Laboratory Medicine [address] [place] Total Protein (05/30/2022 7:33 PM OFFICE SPECIALIST) athologist [facility] Total Protein 7.2 6.4 - 8.3 [facility] g/dL [facility] Specimen Anatomical Collection Method Collection Time Receive d Time (Source) Location / / Volume Laterality Blood 05/30/2022 7:33 PM 2 7:43 OFFICE SPECIALIST PM OFFICE SPECIALIST Meche Leonard MD LAB BLOOD ORDERABLES Performing Organization Address City/[facility] [address]/ZIP Code Phon e Number [facility] Unless otherwise noted, [address] all lab tests performed by: Division of Pathology and Laboratory Medicine [address] [place] Alkaline Phosphatase (05/30/2022 7:33 PM OFFICE SPECIALIST) athologist [facility] Alk Phos 71 35 - 104 [facility] U/L [facility] Specimen Anatomical Collection Method Collection Time Receive d Time (Source) Location / / Volume Laterality Blood 05/30/2022 7:33 PM 2 7:43 OFFICE SPECIALIST PM OFFICE SPECIALIST Meche Leonard MD LAB BLOOD ORDERABLES Performing Organization Address City/[facility] [address]/ZIP [facility] Phon e Number [facility] Unless otherwise noted, [address] all lab tests performed by: Division of Pathology and Laboratory Medicine [address] [place] Albumin Level (05/30/2022 7:33 PM OFFICE SPECIALIST) athologist [facility] Albumin Lvl 4.3 3.5 - 5.2 [facility] gm/dL [facility] Specimen Anatomical Collection Method Collection Time Receive d Time (Source) Location / / Volume Laterality Blood 05/30/2022 7:33 PM 7:43 OFFICE SPECIALIST PM OFFICE SPECIALIST Meche Leonard MD LAB BLOOD ORDERABLES Performing Organization Address City/State/ZIP Code Phon e Number [facility]CER Unless otherwise noted, [place] [address] CENTER all lab tests performed by: Division of Pathology and Laboratory Medicine [address] [place] [address] Pathology Outside Interpretation (05/16/2022) Component Value Ref Test Analysis Performed Pathologis t Range Method Time At [facility] Materials Accession#, Stained, Block, Unstained Collected Received 06/06/2022 [facility] Received A. 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 MD Seda on TUMOR INVADES AT LEAST SUBMUCOSA, PRESEN T AT DEEP MARGINS OF TISSUE FRAGMENTS. 06/06/2022 at LYMPHOVASCULAR AND FOCAL PERINEURAL INVASION ARE PRESENT. 2:38 PM Peripheral margins cannot be assessed due to fragmentation. Biomarker Tumor block: 1 06/06/2022 [facility] Block(s) 2:38 PM OFFICE SPECIALIST Disclaimer "Some tests 06/06/2022 [facility] reported here may 2:38 PM have been OFFICE SPECIALIST developed and performance characteristics determined by [facility] Pathology and Laboratory Medicine. These tests have not been specifically cleared or approved by the U.S. Food and Drug Administration. If applicable, controls were reviewed and showed appropriate reactivity." Specimen (Source) Anatomical Collection Method Collection Time Re ceived Time Location / / Volume Laterality Tissue 05/16/2022 06/04/2022 2:02 PM OFFICE SPECIALIST Shruthi Salgado MD LAB PATHOLOGY ORDERABLES Performing Organization Address City/State/ZIP Code Phon e Number [facility] [place] [address] [address] [facility] OSI CT Pelvis (05/15/2022 2:22 PM OFFICE SPECIALIST) Specimen (Source) Anatomical Location Collection Method / Collectio n Time Received Time / Laterality Volume Narrative Systemgenerated, Documentation - 022 2:22 PM OFFICE SPECIALIST Study acquired at another institution. For comparison only. No MD Irving originated interpretation requested or a vailable. Tosha Dhillon [employer] VICE PRESIDENT IMG OUTSIDE IMAGE ORDERABLES after 07/01/2021 Insurance Payer Benefit Plan Subscriber ID Effective Phone Address Typ e / Group Dates [facility] [id number] 1998-Pres [address] [employer] [employer] [place] [id number] [place] [address] Guarantor Name Account Type Relation to Date of Phone Billing Patient Address Reta Personal/Family Self [address] (Home) [place] Fr[place] [phone] (Work) Reta Personal/Family Self [address] (Home) [place] [id number] Advance Directives Code Status Date Activated Date Inactivated Comments Full Code 05/30/2022 11:29 PM 06/03/2022 9:24 PM
--- OUTSIDE RECORDS SUMMARY | 2022-07-01 17:53 | XMS REPORT | Continuity of Care Document ---
:1970 Author Organization [facility] t Address [address] [place] [address] Care Team Providers Name Role Phone KRIS BROTHERS Primary Care Physician Unavailable SYSTEM, PROVIDER NOT IN Attending Clinician Unavailable Estuardo Adkins Attending Clinician Artemio Esqueda MD Attending Clinician Shruthi Salgado MD Attending Clinician Mindy Long Attending Clinician Theo Clement MD Attending Clinician Aye Brody MD Attending Clinician Aditya Toscano MD Attending Clinician ADITYA TOSCANO Attending Clinician Unavailable Tosha Dhillon APN Attending Clinician TOSHA DHILLON Attending Clinician Unavailable Anant Rachel Attending Clinician DR KRIS BROTHERS Attending Clinician Unavailable [phone] Attending Clinician Unavailable KEVEN Attending Clinician Unavailable Timothy Murrieta Attending Clinician [phone] ADITYA TOSCANO Admitting Clinician Unavailable DR KRIS BROTHERS Admitting Clinician Unavailable KEVEN Admitting Clinician Unavailable Payers Payer Name Policy Type Policy Number Effective Date Expiration Date S ource Problems Condition Condition Condition Status Onset Resolution Last Treating Co mments Source Name Details Category Date Date Treatment Clinician Date 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 Univers protein-ca protein-ca 2-11 it y of jona tenorio 00:00: [place] malnutriti [facility]nutriti [facility] Hypertensi Hypertensi Disease Active 2021-06 U nivers on on 08-01 ity of 00:00: [place] 00 [facility] Hypothyroi Hypothyroi Disease Active 2021-06 U nivers dism dism 08-01 ity of 00:00: [place] 00 MD Sera [place] [facility] Posttrauma Posttrauma Disease Active 2021-06 U nivers tic stress tic stress 08-01 it y of disorder disorder 00:00: [place] 00 MD Sera [place] [facility] Rectal Rectal Disease Active 2021-06 Univers pain pain 08-01 ity of 00:00: [place] [facility] Painful Painful Disease Active 2021-06 Univers rectal rectal 08-01 ity of bleeding bleeding 00:00: [place] 00 MD Sera [place] [facility] Pulmonary Pulmonary Disease Active 2021-06 Uni vers embolism embolism 08-01 ity of 00:00: [place] 00 MD Zamora [facility] Bipolar Bipolar Disease Active 2021-06 Univers disorder disorder 08-01 ity of 00:00: [place] 00 MD Sera [place] [facility] 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, carcinoma, [place] of NOS of anal canal anal canal An derso [facility] Hypothyroi Hypothyroi Problem Active S [place] dism dism 8-18 Communi 00:00: ty 00 [facility]osp[facility] Clin[facility] Chronic Chronic Problem Active [place] paranoid Paranoid 02-07 Commun i schizophre Schizophre 00:00: ty bird bird 00 Hospita l Clinics Mixed Mixed Problem Active [place] anxiety Anxiety 8-18 Communi and and 00:00: ty depressive Depressive 00 Ho spita disorder Disorder l Clinics History of History of Problem Active [place] manic Manic 02-07 Communi depressive Depressive 00:00: ty disorder Disorder 00 Hospit a l Clinics 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 Hallucinat 02-07 Co mmuni ions ions 00:00: ty 00 Hospita l Clinics Diabetes Diabetes Problem Active [place] mellitus Mellitus 02-07 Commun i 00:00: ty 00 Hospita l Clinics Hyperlipid Hyperlipid Problem Active S [place] emia emia 07-11 Communi 00:00: ty 00 Hospita l [facility] Schizoaffe Schizoaffe Problem Active 2003-06 S weenjose ctive ctive 07-14 Communi disorder, Disorder, 00:00: ty mixed type Mixed Type 00 Ho spita l Clinics Bipolar Bipolar Problem Active [place] disorder Disorder 10-15 Commun i 00:00: [place] 00 Hospita l [facility] Breakthrou Breakthrou Disease Active U nivers gh cancer gh cancer ity of pain pain Meli [place] [facility] Slow Slow Disease Active Univers transit transit ity of [place] MD Sera [place] [facility] Physical Physical Disease Active Unive rs deconditio deconditio it y of nenita nenita Meli [place] [facility] Malignant Malignant Disease Active Uni vers neoplasm neoplasm ity of related related [place] fatigue fatigue MD Sera [place] [facility] Encounter Encounter Disease Active Uni vers for for it[place] of palliative palliative [place] care care MD Sera [place] [facility] Advance Advance Disease Active Univers care care ity of planning planning Meli [place] [facility] Allergies, Adverse Reactions, Alerts Allergy Allergy Status Severity Reaction(s) Onset Inactive Treating Comm ents Source Name Type Date Date Clinician HYDROMOR DRUG Active Itching 2021-06 PHONE INGREDI 08-01 Anderso 00:00: n 00 HALOPERI DRUG Active 2021-06 DOL INGREDI 08-01 Anderso 00:00: n 00 RISPERID Drug Active 2021-06 ONE Class 08-01 Anderso ANALOGUE 00:00: n S 00 CODEINE DRUG Active Itching 2021- MD INGREDI 2-09 Anderso 00:00: n 00 HYDROMOR DRUG Active Itching 2021-1 MD PHONE INGREDI 2 Anderso 00:00: n 00 RISPERID Drug Active 2-1 MD ONE Class 2-09 Anderso ANALOGUE 00:00: n S 00 HALOPERI DRUG Active 2021- MD DOL INGREDI 2- Anderso 00:00: n 00 RISPERID Drug Active 2021-1 MD ONE Class 2-09 Anderso ANALOGUE 00:00: n S 00 CODEINE DRUG Active Itching 2021- MD INGREDI 2- Anderso 00:00: n 00 HYDROMOR DRUG Active Itching 2021- MD PHONE INGREDI 08-01 Anderso 00:00: n 00 HALOPERI DRUG Active 2021- MD DOL INGREDI 2 Anderso 00:00: n 00 RISPERID Drug Active 2021-1 MD ONE Class 2-09 Anderso ANALOGUE 00:00: n S 00 CODEINE DRUG Active Itching 2021-1 MD INGREDI 2-09 Anderso 00:00: n 00 HYDROMOR DRUG Active Itching 2021-1 MD PHONE INGREDI 08-01 Anderso 00:00: n 00 HALOPERI DRUG Active 2021- MD DOL INGREDI 2 Anderso 00:00: n 00 RISPERID Drug Active 2021-1 MD ONE Class 2-09 Anderso ANALOGUE 00:00: n S 00 CODEINE DRUG Active Itching 2021-1 MD INGREDI 2- Anderso 00:00: n 00 CODEINE DRUG Active Itching 2021-1 MD INGREDI 2-09 Anderso 00:00: n 00 HYDROMOR DRUG Active Itching 2021-1 MD PHONE INGREDI 2 Anderso 00:00: n 00 HALOPERI DRUG Active 2021-1 MD DOL INGREDI 2- Anderso 00:00: n 00 RISPERID Drug Active 2-1 MD ONE Class 2-09 Anderso ANALOGUE 00:00: n S 00 CODEINE DRUG Active Itching 2021-1 MD INGREDI 2-09 Anderso 00:00: n 00 HYDROMOR DRUG Active Itching 2022-1 MD PHONE INGREDI 2 Anderso 00:00: n 00 HALOPERI DRUG Active 2021- MD DOL INGREDI 2- Anderso 00:00: n 00 RISPERID Drug Active 2021- MD ONE Class 2-09 Anderso ANALOGUE 00:00: n S 00 CODEINE DRUG Active Itching 2021- MD INGREDI 2- Anderso 00:00: n 00 HYDROMOR DRUG Active Itching 2021- MD PHONE INGREDI 2 Anderso 00:00: n 00 HALOPERI DRUG Active 2021- MD DOL INGREDI 2- Anderso 00:00: n 00 HALOPERI DRUG Active 2021- MD DOL INGREDI 2 Anderso 00:00: n 00 RISPERID Drug Active 2021- MD ONE Class 2-09 Anderso ANALOGUE 00:00: n S 00 CODEINE DRUG Active Itching 2021- MD INGREDI 2 Anderso 00:00: n 00 HYDROMOR DRUG Active Itching 2021- MD PHONE INGREDI 08-01 Anderso 00:00: n 00 HALOPERI DRUG Active 2021- MD DOL INGREDI 2- Anderso 00:00: n 00 RISPERID Drug Active 2021- MD ONE Class 2-09 Anderso ANALOGUE 00:00: n S 00 CODEINE DRUG Active Itching 2021- MD INGREDI 2- Anderso 00:00: n 00 HYDROMOR DRUG Active Itching 2021- MD PHONE INGREDI 08-01 Anderso 00:00: n 00 HALOPERI DRUG Active 2021- MD DOL INGREDI 2- Anderso 00:00: n 00 RISPERID Drug Active 2021-1 MD ONE Class 2-09 Anderso ANALOGUE 00:00: n S 00 RISPERID Drug Active 2021-1 MD ONE Class 2-09 Anderso ANALOGUE 00:00: n S 00 CODEINE DRUG Active Itching 2021-1 MD INGREDI 2-09 Anderso 00:00: n 00 HYDROMOR DRUG Active Itching 2021- MD PHONE INGREDI 2 Anderso 00:00: n 00 HALOPERI DRUG Active 2021- MD DOL INGREDI 2- Anderso 00:00: n 00 RISPERID Drug Active 2021- MD ONE Class 2-09 Anderso ANALOGUE 00:00: n S 00 CODEINE DRUG Active Itching 2021- MD INGREDI 2-09 Anderso 00:00: n 00 HYDROMOR DRUG Active Itching 2021- MD PHONE INGREDI 2 Anderso 00:00: n 00 HALOPERI DRUG Active 2021- MD DOL INGREDI 2- Anderso 00:00: n 00 RISPERID Drug Active 2021-1 MD ONE Class 2-09 Anderso ANALOGUE 00:00: n S 00 CODEINE DRUG Active Itching 2021- MD INGREDI 2-09 Anderso 00:00: n 00 HYDROMOR DRUG Active Itching 2021- MD PHONE INGREDI 08-01 Anderso 00:00: n 00 CODEINE DRUG Active Itching 2021- MD INGREDI 2- Anderso 00:00: n 00 HALOPERI DRUG Active 2021- MD DOL INGREDI 2- Anderso 00:00: n 00 RISPERID Drug Active 2021- MD ONE Class 2-09 Anderso ANALOGUE 00:00: n S 00 CODEINE DRUG Active Itching 2021-1 MD INGREDI 2-09 Anderso 00:00: n 00 HYDROMOR DRUG Active Itching 2021-1 MD PHONE INGREDI 08-01 Anderso 00:00: n 00 HALOPERI DRUG Active 2021-1 MD DOL INGREDI 2- Anderso 00:00: n 00 RISPERID Drug Active 2021-1 MD ONE Class 2-09 Anderso ANALOGUE 00:00: n S 00 CODEINE DRUG Active Itching 2021-1 MD INGREDI 2-09 Anderso 00:00: n 00 HYDROMOR DRUG Active Itching 2021-1 MD PHONE INGREDI 2 Anderso 00:00: n 00 HALOPERI DRUG Active 2021-1 MD DOL INGREDI 2-09 Anderso 00:00: n 00 RISPERID Drug Active 2-1 MD ONE Class 2-09 Anderso ANALOGUE 00:00: n S 00 HALOPERI DRUG Active 2021- MD DOL INGREDI 2-09 Anderso 00:00: n 00 CODEINE DRUG Active Itching 2021-1 MD INGREDI 2-09 Anderso 00:00: n 00 HYDROMOR DRUG Active Itching 2021- MD PHONE INGREDI 2 Anderso 00:00: n 00 HALOPERI DRUG Active 2021- MD DOL INGREDI 08-01 Anderso 00:00: n 00 RISPERID Drug Active 2021-1 MD ONE Class 2-09 Anderso ANALOGUE 00:00: n S 00 CODEINE DRUG Active Itching 2021- MD INGREDI 2- Anderso 00:00: n 00 HYDROMOR DRUG Active Itching 2021- MD PHONE INGREDI 2 Anderso 00:00: n 00 HALOPERI DRUG Active 2021- MD DOL INGREDI 2 Anderso 00:00: n 00 RISPERID Drug Active 2021- MD ONE Class 2-09 Anderso ANALOGUE 00:00: n S 00 CODEINE DRUG Active Itching 2021- MD INGREDI 2 Anderso 00:00: n 00 RISPERID Drug Active 2021- MD ONE Class 2-09 Anderso ANALOGUE 00:00: n S 00 HYDROMOR DRUG Active Itching 2021- MD PHONE INGREDI 08-01 Anderso 00:00: n 00 HALOPERI DRUG Active 2021- MD DOL INGREDI 2- Anderso 00:00: n 00 RISPERID Drug Active 2021-1 MD ONE Class 2-09 Anderso ANALOGUE 00:00: n S 00 CODEINE DRUG Active Itching 2021-1 MD INGREDI 2 Anderso 00:00: n 00 HYDROMOR DRUG Active Itching 2021- MD PHONE INGREDI 2 Anderso 00:00: n 00 HALOPERI DRUG Active 2021-1 MD DOL INGREDI 2- Anderso 00:00: n 00 RISPERID Drug Active 2021-1 MD ONE Class 2-09 Anderso ANALOGUE 00:00: n S 00 CODEINE DRUG Active Itching 2021-1 MD INGREDI 2- Anderso 00:00: n 00 CODEINE DRUG Active Itching 2021-1 MD INGREDI 2- Anderso 00:00: n 00 HYDROMOR DRUG Active Itching 2021-1 MD PHONE INGREDI 2 Anderso 00:00: n 00 HALOPERI DRUG Active 2022-1 MD DOL INGREDI 2-09 Anderso 00:00: n 00 RISPERID Drug Active 2021- MD ONE Class 2-09 Anderso ANALOGUE 00:00: n S 00 CODEINE DRUG Active Itching 2021- MD INGREDI 2-09 Anderso 00:00: n 00 HYDROMOR DRUG Active Itching 2021- MD PHONE INGREDI 2 Anderso 00:00: n 00 HALOPERI DRUG Active 2021- MD DOL INGREDI 2 Anderso 00:00: n 00 RISPERID Drug Active 2021- MD ONE Class 2-09 Anderso ANALOGUE 00:00: n S 00 CODEINE DRUG Active Itching 2021- MD INGREDI 2- Anderso 00:00: n 00 HYDROMOR DRUG Active Itching 2021- MD PHONE INGREDI 08-01 Anderso 00:00: n 00 HALOPERI DRUG Active 2021- MD DOL INGREDI 2- Anderso 00:00: n 00 HALOPERI DRUG Active 2021- MD DOL INGREDI 2- Anderso 00:00: n 00 RISPERID Drug Active 2021-1 MD ONE Class 2-09 Anderso ANALOGUE 00:00: n S 00 CODEINE DRUG Active Itching 2021- MD INGREDI 2-09 Anderso 00:00: n 00 HYDROMOR DRUG Active Itching 2021- MD PHONE INGREDI 08-01 Anderso 00:00: n 00 HALOPERI DRUG Active 2021- MD DOL INGREDI 2-09 Anderso 00:00: n 00 RISPERID Drug Active 2021-1 MD ONE Class 2-09 Anderso ANALOGUE 00:00: n S 00 CODEINE DRUG Active Itching 2021-1 MD INGREDI 2-09 Anderso 00:00: n 00 HYDROMOR DRUG Active Itching 2021- MD PHONE INGREDI 08-01 Anderso 00:00: n 00 HALOPERI DRUG Active 2021- MD DOL INGREDI 2-09 Anderso 00:00: n 00 RISPERID Drug Active 2021-1 MD ONE Class 2-09 Anderso ANALOGUE 00:00: n S 00 RISPERID Drug Active 2021-1 MD ONE Class 2-09 Anderso ANALOGUE 00:00: n S 00 CODEINE DRUG Active Itching 2021- MD INGREDI 2-09 Anderso 00:00: n 00 HYDROMOR DRUG Active Itching 2021- MD PHONE INGREDI 08-01 Anderso 00:00: n 00 HALOPERI DRUG Active 2021- MD DOL INGREDI 2 Anderso 00:00: n 00 RISPERID Drug Active 2021-1 MD ONE Class 2-09 Anderso ANALOGUE 00:00: n S 00 CODEINE DRUG Active Itching 2021- MD INGREDI 2- Anderso 00:00: n 00 HYDROMOR DRUG Active Itching 2021- MD PHONE INGREDI 08-01 Anderso 00:00: n 00 HALOPERI DRUG Active 2021- MD DOL INGREDI 08-01 Anderso 00:00: n 00 RISPERID Drug Active 2021-1 MD ONE Class 2-09 Anderso ANALOGUE 00:00: n S 00 CODEINE DRUG Active Itching 2021- MD INGREDI 2 Anderso 00:00: n 00 HYDROMOR DRUG Active Itching 2021- MD PHONE INGREDI 08-01 Anderso 00:00: n 00 CODEINE DRUG Active Itching 2021-1 MD INGREDI 2-09 Anderso 00:00: n 00 HALOPERI DRUG Active 2021- MD DOL INGREDI 08-01 Anderso 00:00: n 00 RISPERID Drug Active 2021-1 MD ONE Class 2-09 Anderso ANALOGUE 00:00: n S 00 CODEINE DRUG Active Itching 2021-1 MD INGREDI 2- Anderso 00:00: n 00 HYDROMOR DRUG Active Itching 2021- MD PHONE INGREDI 2 Anderso 00:00: n 00 HALOPERI DRUG Active 2021- MD DOL INGREDI 2- Anderso 00:00: n 00 RISPERID Drug Active 2021-1 MD ONE Class 2-09 Anderso ANALOGUE 00:00: n S 00 CODEINE DRUG Active Itching 2021-1 MD INGREDI 2-09 Anderso 00:00: n 00 HYDROMOR DRUG Active Itching 2021-1 MD PHONE INGREDI 08-01 Anderso 00:00: n 00 HALOPERI DRUG Active 2021- MD DOL INGREDI 2- Anderso 00:00: n 00 RISPERID Drug Active 2021- MD ONE Class 2-09 Anderso ANALOGUE 00:00: n S 00 HALOPERI DRUG Active 2021- MD DOL INGREDI 2 Anderso 00:00: n 00 CODEINE DRUG Active Itching 2021-1 MD INGREDI 2- Anderso 00:00: n 00 HYDROMOR DRUG Active Itching 2021- MD PHONE INGREDI 08-01 Anderso 00:00: n 00 HALOPERI DRUG Active 2021- MD DOL INGREDI 2 Anderso 00:00: n 00 RISPERID Drug Active 2021- MD ONE Class 2-09 Anderso ANALOGUE 00:00: n S 00 CODEINE DRUG Active Itching 2021- MD INGREDI 2- Anderso 00:00: n 00 HYDROMOR DRUG Active Itching 2021- MD PHONE INGREDI 08-01 Anderso 00:00: n 00 HALOPERI DRUG Active 2021- MD DOL INGREDI 08-01 Anderso 00:00: n 00 RISPERID Drug Active 2021-1 MD ONE Class 2-09 Anderso ANALOGUE 00:00: n S 00 CODEINE DRUG Active Itching 2021-1 MD INGREDI 2- Anderso 00:00: n 00 HYDROMOR DRUG Active Itching 2021- MD PHONE INGREDI 08-01 Anderso 00:00: n 00 RISPERID Drug Active 2021-1 MD ONE Class 2-09 Anderso ANALOGUE 00:00: n S 00 HALOPERI DRUG Active 2021- MD DOL INGREDI 2- Anderso 00:00: n 00 RISPERID Drug Active 2-1 MD ONE Class 2-09 Anderso ANALOGUE 00:00: n S 00 CODEINE DRUG Active Itching 2021-1 MD INGREDI 2- Anderso 00:00: n 00 HYDROMOR DRUG Active Itching 2021-1 MD PHONE INGREDI 2 Anderso 00:00: n 00 HALOPERI DRUG Active 2021-1 MD DOL INGREDI 2- Anderso 00:00: n 00 RISPERID Drug Active 2021-1 MD ONE Class 2-09 Anderso ANALOGUE 00:00: n S 00 CODEINE DRUG Active Itching 2021-1 MD INGREDI 2-09 Anderso 00:00: n 00 HYDROMOR DRUG Active Itching 2021- MD PHONE INGREDI 2-09 Anderso 00:00: n 00 HALOPERI DRUG Active 2021- MD DOL INGREDI 2-09 Anderso 00:00: n 00 RISPERID Drug Active 2021- MD ONE Class 2-09 Anderso ANALOGUE 00:00: n S 00 CODEINE DRUG Active Itching 2021- MD INGREDI 2-09 Anderso 00:00: n 00 HALOPERI DRUG Active 2021- MD DOL INGREDI 2-09 Anderso 00:00: n 00 RISPERID Drug Active 2021- MD ONE Class 2-09 Anderso ANALOGUE 00:00: n S 00 CODEINE DRUG Active Itching 2021-06 MD INGREDI 2-09 Anderso 00:00: n 00 HALOPERI DRUG Active 2021- MD DOL INGREDI 2-09 Anderso 00:00: n 00 RISPERID Drug Active 2021- MD ONE Class 2-09 Anderso ANALOGUE 00:00: n S 00 CODEINE DRUG Active Itching 2021- MD INGREDI 2-09 Anderso 00:00: n 00 HALOPERI DRUG Active 2021- MD DOL INGREDI 2-09 Anderso 00:00: n 00 RISPERID Drug Active 2021- MD ONE Class 2-09 Anderso ANALOGUE 00:00: n S 00 CODEINE DRUG Active Itching 2021- MD INGREDI 2-09 Anderso 00:00: n 00 HALOPERI DRUG Active 2021- MD DOL INGREDI 2-09 Anderso 00:00: n 00 RISPERID Drug Active 2021- MD ONE Class 2-09 Anderso ANALOGUE 00:00: n S 00 CODEINE DRUG Active Itching 2021- MD INGREDI 2-09 Anderso 00:00: n 00 HYDROMOR DRUG Active Itching 2021- MD PHONE INGREDI 2-09 Anderso 00:00: n 00 HALOPERI DRUG Active 2021- MD DOL INGREDI 2-09 Anderso 00:00: n 00 RISPERID Drug Active 2021- MD ONE Class 2-09 Anderso ANALOGUE 00:00: n S 00 CODEINE DRUG Active Itching 2021- MD INGREDI 2-09 Anderso 00:00: n 00 HYDROMOR DRUG Active Itching 2021- MD PHONE INGREDI 2 Anderso 00:00: n 00 HALOPERI DRUG Active 2021- MD DOL INGREDI 2 Anderso 00:00: n 00 RISPERID Drug Active 2021- MD ONE Class 2-09 Anderso ANALOGUE 00:00: n S 00 CODEINE DRUG Active Itching 2021- MD INGREDI 2- Anderso 00:00: n 00 HYDROMOR DRUG Active Itching 2021- MD PHONE INGREDI 08-01 Anderso 00:00: n 00 HALOPERI DRUG Active 2021- MD DOL INGREDI 2 Anderso 00:00: n 00 RISPERID Drug Active 2021- MD ONE Class 2-09 Anderso ANALOGUE 00:00: n S 00 CODEINE DRUG Active Itching 2021- MD INGREDI 2 Anderso 00:00: n 00 HYDROMOR DRUG Active Itching 2021- MD PHONE INGREDI 08-01 Anderso 00:00: n 00 HALOPERI DRUG Active 2021- MD DOL INGREDI 2 Anderso 00:00: n 00 RISPERID Drug Active 2021- MD ONE Class 2-09 Anderso ANALOGUE 00:00: n S 00 CODEINE DRUG Active Itching 2021-1 MD INGREDI 2- Anderso 00:00: n 00 HYDROMOR DRUG Active Itching 2021- MD PHONE INGREDI 08-01 Anderso 00:00: n 00 HALOPERI DRUG Active 2021- MD DOL INGREDI 2- Anderso 00:00: n 00 RISPERID Drug Active 2021- MD ONE Class 2-09 Anderso ANALOGUE 00:00: n S 00 CODEINE DRUG Active Itching 2021-1 MD INGREDI 2-09 Anderso 00:00: n 00 HYDROMOR DRUG Active Itching 2021- MD PHONE INGREDI 2 Anderso 00:00: n 00 HALOPERI DRUG Active 2021- MD DOL INGREDI 2 Anderso 00:00: n 00 RISPERID Drug Active 2021-1 MD ONE Class 2-09 Anderso ANALOGUE 00:00: n S 00 CODEINE DRUG Active Itching 2021-1 MD INGREDI 2-09 Anderso 00:00: n 00 HYDROMOR DRUG Active Itching 2021-1 MD PHONE INGREDI 2 Anderso 00:00: n 00 HALOPERI DRUG Active 2021-1 MD DOL INGREDI 2 Anderso 00:00: n 00 RISPERID Drug Active 2021-1 MD ONE Class 2-09 Anderso ANALOGUE 00:00: n S 00 CODEINE DRUG Active Itching 2021-1 MD INGREDI 2- Anderso 00:00: n 00 HYDROMOR DRUG Active Itching 2021- MD PHONE INGREDI 08-01 Anderso 00:00: n 00 HALOPERI DRUG Active 2021- MD DOL INGREDI 08-01 Anderso 00:00: n 00 RISPERID Drug Active 2021-1 MD ONE Class 2-09 Anderso ANALOGUE 00:00: n S 00 CODEINE DRUG Active Itching 2021- MD INGREDI 2 Anderso 00:00: n 00 HYDROMOR DRUG Active Itching 2021-1 MD PHONE INGREDI 08-01 Anderso 00:00: n 00 HALOPERI DRUG Active 2021-1 MD DOL INGREDI 2 Anderso 00:00: n 00 RISPERID Drug Active 2021-1 MD ONE Class 2-09 Anderso ANALOGUE 00:00: n S 00 CODEINE DRUG Active Itching 2021-1 MD INGREDI 2 Anderso 00:00: n 00 HYDROMOR DRUG Active Itching 2021-1 MD PHONE INGREDI 2 Anderso 00:00: n 00 HALOPERI DRUG Active 2021-1 MD DOL INGREDI 2- Anderso 00:00: n 00 RISPERID Drug Active 2021-1 MD ONE Class 2-09 Anderso ANALOGUE 00:00: n S 00 CODEINE DRUG Active Itching 2021-1 MD INGREDI 2-09 Anderso 00:00: n 00 CODEINE DRUG Active Itching 2021-1 MD INGREDI 2-09 Anderso 00:00: n 00 HYDROMOR DRUG Active Itching 2021-1 MD PHONE INGREDI 2 Anderso 00:00: n 00 HALOPERI DRUG Active 2021-1 MD DOL INGREDI 2-09 Anderso 00:00: n 00 RISPERID Drug Active 2021- MD ONE Class 2-09 Anderso ANALOGUE 00:00: n S 00 CODEINE DRUG Active Itching 2021- MD INGREDI 2 Anderso 00:00: n 00 HYDROMOR DRUG Active Itching 2021- MD PHONE INGREDI 08-01 Anderso 00:00: n 00 HALOPERI DRUG Active 2021- MD DOL INGREDI 08-01 Anderso 00:00: n 00 RISPERID Drug Active 2021- MD ONE Class 2-09 Anderso ANALOGUE 00:00: n S 00 CODEINE DRUG Active Itching 2021- MD INGREDI 08-01 Anderso 00:00: n 00 HYDROMOR DRUG Active Itching 2021- MD PHONE INGREDI 08-01 Anderso 00:00: n 00 HALOPERI DRUG Active 2021- MD DOL INGREDI 08-01 Anderso 00:00: n 00 HALOPERI DRUG Active 2021- MD DOL INGREDI 08-01 Anderso 00:00: n 00 RISPERID Drug Active 2021- MD ONE Class 2-09 Anderso ANALOGUE 00:00: n S 00 CODEINE DRUG Active Itching 2021- MD INGREDI 08-01 Anderso 00:00: n 00 HYDROMOR DRUG Active Itching 2021- MD PHONE INGREDI 08-01 Anderso 00:00: n 00 HALOPERI DRUG Active 2021- MD DOL INGREDI 08-01 Anderso 00:00: n 00 RISPERID Drug Active 2021-1 MD ONE Class 2-09 Anderso ANALOGUE 00:00: n S 00 CODEINE DRUG Active Itching 2021- MD INGREDI 2 Anderso 00:00: n 00 HYDROMOR DRUG Active Itching 2021- MD PHONE INGREDI 08-01 Anderso 00:00: n 00 HALOPERI DRUG Active 2021- MD DOL INGREDI 08-01 Anderso 00:00: n 00 RISPERID Drug Active 2021- MD ONE Class 2-09 Anderso ANALOGUE 00:00: n S 00 Codeine Propensi Active Itching 2021- Univer s ty to 08-01 ity of adverse 00:00: [place] reaction 00 MD s Anderso n [facility] Hydromor Propensi Active Itching 2021-06 Unive rs phone ty to 08-01 ity of adverse 00:00: [place] reaction 00 MD flako [place] [facility] Haloperi Propensi Active 2021-06 "Makes me Uni vers dol ty to 08-01 crazy, ity of adverse 00:00: running [place] reaction 00 around a s miljames bernal Andromeo freeman" n [facility] was an adverse reaction Risperid Propensi Active 2021-06 "Makes me Uni vers one ty to 08-01 crazy, ity of Analogue adverse 00:00: running [place] s reaction 00 around a s mile a Andromeo minute", n [facility] was an adverse reaction RISPERID Drug Active 2021-06 ONE Class 2- Anderso ANALOGUE 00:00: n S 00 CODEINE DRUG Active Itching 2021-06 MD INGREDI 08-01 Anderso 00:00: n 00 HYDROMOR DRUG Active Itching 2021-06 MD PHONE INGREDI 08-01 Anderso 00:00: n 00 HALOPERI DRUG Active 2021-06 MD DOL INGREDI 08-01 Anderso 00:00: n 00 RISPERID Drug Active 2021-1 MD ONE Class 2-09 Anderso ANALOGUE 00:00: n S 00 CODEINE DRUG Active Itching 2021-1 MD INGREDI 08-01 Anderso 00:00: n 00 HYDROMOR DRUG Active Itching 2021- MD PHONE INGREDI 08-01 Anderso 00:00: n 00 HALOPERI DRUG Active 2021- MD DOL INGREDI 08-01 Anderso 00:00: n 00 RISPERID Drug Active 2021- MD ONE Class 2-09 Anderso ANALOGUE 00:00: n S 00 CODEINE DRUG Active Itching 2021- MD INGREDI 08-01 Anderso 00:00: n 00 HYDROMOR DRUG Active Itching 2021- MD PHONE INGREDI 08-01 Anderso 00:00: n 00 CODEINE DRUG Active Itching 2021-1 MD INGREDI 08-01 Anderso 00:00: n 00 HALOPERI DRUG Active 2021- MD DOL INGREDI 08-01 Anderso 00:00: n 00 RISPERID Drug Active 2021- MD ONE Class 2- Anderso ANALOGUE 00:00: n S 00 CODEINE DRUG Active Itching 2021-06 MD INGREDI 08-01 Anderso 00:00: n 00 HYDROMOR DRUG Active Itching 2021-06 MD PHONE INGREDI 08-01 Anderso 00:00: n 00 HALOPERI DRUG Active 2021-06 MD DOL INGREDI 08-01 Anderso 00:00: n 00 RISPERID Drug Active 2021-06 MD ONE Class 2- Anderso ANALOGUE 00:00: n S 00 CODEINE DRUG Active Itching 2021-06 MD INGREDI 08-01 Anderso 00:00: n 00 HYDROMOR DRUG Active Itching 2021-06 MD PHONE INGREDI 08-01 Anderso 00:00: n 00 HALOPERI DRUG Active 2021-06 MD DOL INGREDI 08-01 Anderso 00:00: n 00 RISPERID Drug Active 2021-06 MD ONE Class 2- Anderso ANALOGUE 00:00: n S 00 HALOPERI DRUG Active 2021-06 MD DOL INGREDI 08-01 Anderso 00:00: n 00 CODEINE DRUG Active Itching 2021-06 MD INGREDI 08-01 Anderso 00:00: n 00 HYDROMOR DRUG Active Itching 2021-06 MD PHONE INGREDI 08-01 Anderso 00:00: n 00 HALOPERI DRUG Active 2021-06 MD DOL INGREDI 08-01 Anderso 00:00: n 00 RISPERID Drug Active 2021-06 MD ONE Class 2- Anderso ANALOGUE 00:00: n S 00 CODEINE DRUG Active Itching 2021-06 MD INGREDI 08-01 Anderso 00:00: n 00 HALDOL Allergy Active Hallucinatio Swe han to ns [facility] Risperda Allergy Active Hallucinatio S weeny l to ns Communi [facility] Olanzapi Allergy Active Hallucinatio S weeny ne to ns Commun[facility] Social History Social Habit Start Date Stop Date Quantity Comments Source History of Smokes tobacco [facility] of tobacco use daily Meli Dumont [facility] Tobacco use and 2022-06-01 2022-06-01 User of smokeless Un iversity of exposure 00:00:00 00:00:00 tobacco Meli figueroa [facility] Alcohol intake 2022-06-01 2022-06-01 Ex-drinker [facility] 00:00:00 00:00:00 (finding) Meli figueroa [facility] Sex Ass[birth year] At [birth year] F [facility] of 00:00:00 00:00:00 Meli figueroa [facility] Smoking Status Start Date Stop Date Source Smokes tobacco daily 2022-06-01 00:00:00 Univers ity of [facility] Medications Ordered Filled Start Stop Current Ordering Indication Dosage Frequency Signature Comments Components Source Medication Medication Date Date Medication? Clinician (SIG) Name Name morphine 2021-06 Yes Neoplasm 15mg Take 1 Uni vers (MS CONTIN) 2-20 related tablet (15 ity of 15 mg ER 00:00: pain mg) by [place] tablet 00 (acute) mouth MD (chronic) every 8 Anderso (eight) n hours. [facility] morphine 2021-06 Yes Neoplasm 7.5mg Take HALF Univers (MSIR) 15 2-20 related to ONE ity o f mg IR 00:00: pain tablet [place] tablet 00 (acute) (7.5 mg to MD (chronic) 15 mg) by [facility] mouth n every 4 Cancer (four) Center hours as needed for moderate pain or severe pain. ARIPiprazol 2021-06 Yes 30mg Take 1 Univ ers e (ABILIFY) 2-12 tablet (30 it y of 30 MG 19:24: mg) by [place] tablet 00 [facility] 2021-06 Yes 10mg Take 1 Univ ers (INDERAL) 2-12 tablet (10 ity of 10 mg 19:24: mg) by [place] tablet 00 mouth MD twice Anderso daily. [facility] divalproex 2021-06 Yes 1250mg Take 5 Uni vers (DEPAKOTE) 2-12 tablets ity of [address] 19:24: [place]250 [place] 00 [place] [facility] traZODone 2021-06 Yes 50mg Take 1 Univer s (DESYREL) 2-12 tablet (50 ity of 50 mg 19:24: mg) by [place] tablet 00 mouth. MD Sera [place] [facility] levothyroxi 2021-06- No 150ug Take 1 Un savanna ne 2-12 12-12 tablet ity of (SYNTHROID, 15:54: 00:00 (150 mcg) [place] LEVOTHROID) 40 :00 by mouth. 150 mcg Anderso tablet n [facility] lisinopril 2021-06- No 20mg Take 1 Univ ers (PRINIVIL,Z 2-12 12-12 tablet (20 i ty of ESTRIL) 20 15:54: 00:00 mg) [place] mg tablet 40 :00 mouth. MD Sera [place] [facility] naloxone 2021-06 Yes Neoplasm Use 1 dose Univers (Narcan) 4 -12 related into one it y of mg/actuatio 00:00: pain nostril as Meli n nasal 00 (acute) needed for MD spray (chronic) opioid Anderso overdose. n Do not Cancer prime or Center test the inhaler prior to adminstrat ion. Give another dose into the other nostril after 2 to 3 minutes if the patient does not respond or responds and then relapses into respirator y depression . levothyroxi 2021-06 Yes Hypothyroid 150ug Take 1 Univers ne 2-12 ism, not tablet ity of (SYNTHROID, 00:00: otherwise (150 mcg) [place] LEVOTHROID) 00 specified by mouth 150 mcg daily. Anderso tablet n [facility] lisinopril 2021-06 Yes Hypertensio 20mg Take 1 Univers (PRINIVIL,Z 2-12 n tablet (20 it y of ESTRIL) 20 00:00: mg) by [place] mg tablet 00 mouth MD every Anderso morning. n Cancer [place] apixaban 2021-06 Yes Pulmonary Take 2 Un savanna (ELIQUIS 2-12 embolism, tablets by ity of STARTER 00:00: not mouth [place] PACK) 00 otherwise twice MD tablet dose specified daily for Anderso pack 5 mg 5 days, n FOR VTE then take Cancer ONLY 1 tablet Center by mouth twice daily thereafter . polyethylen 2021-06- Yes Neoplasm 17g Fill U nivers e glycol -07-04 related powder to it y of (GLYCOLAX) 00:00: 05:59 pain claudia [place] 17 00 :00 (acute) inside cap MD gram/dose (chronic) (17 Christopher so powder grams). n Stir and Cancer dissolve Center in any 4 to 8 ounces of beverage then drink solution twice a day for constipati on. senna-docus 2021-06- Yes Neoplasm 4{tbl} Take 4 Univers ate 2-12 01-12 related tablets by itjose torres (SENOKOT-S) 00:00: 05:59 pain mouth [place] 8.6 mg-50 00 :00 (acute) twice MD mg tablet (chronic) daily for Anderso 30 days. n Cancer Center morphine 2021-06- No Neoplasm 15mg Take 1 Un savanna (MS CONTIN) 2-20 related tablet (15 ity of 15 mg ER 00:00: 00:00 pain mg) by [place] tablet 00 :00 (acute) mouth MD (chronic) every 8 Anderso (eight) n hours. Cancer Center morphine 2021-06- No Neoplasm 7.5mg Take HALF Univers (MSIR) 15 08-04-20 related to ONE ity of mg IR 00:00: 00:00 pain tablet [place] tablet 00 :00 (acute) (7.5 mg to MD (chronic) 15 mg) by Christopher so mouth n every 4 Cancer (four) Center hours as needed for moderate pain or severe pain. morphine 2021-06- No Neoplasm 15mg Take 1 Un savanna (MS CONTIN) 2-12 -12 related tablet (15 ity of 15 mg ER 00:00: 00:00 pain mg) by [place] tablet 00 :00 (acute) mouth MD (chronic) every 8 Anderso (eight) n hours. Cancer Center morphine 2021-06- No Neoplasm 7.5mg Take HALF Univers (MSIR) 15 2-12 12-12 related to ONE ity of mg IR 00:00: 00:00 pain tablet [place] tablet 00 :00 (acute) (7.5-15 MD (chronic) mg) by Anderso mouth n every 4 Cancer (four) Center hours as needed for moderate pain or severe pain. traMADol 2021-06 Yes Breakthroug 50mg Take 1 Univers (Ultram) 50 2-08 h cancer tablet (50 ity of mg tablet 00:00: pain mg) by [place] 00 mouth MD every 6 Anderso (six) n hours as Cancer needed for Center moderate pain for up to 4 doses. traMADol 2021-06- No Breakthroug 50mg Take 1 Univers (Ultram) 50 2-08 12-08 h cancer tablet (50 ity of mg tablet 00:00: 00:00 pain mg) by [place] 00 :00 mouth MD every 6 Anderso (six) n hours as Cancer needed for Center moderate pain for up to 4 doses. traMADol 2021-06- No Breakthroug 50mg Take 1 Univers (Ultram) 50 2-08 12-08 h cancer tablet (50 ity of mg tablet 00:00: 00:00 pain mg) by [place] 00 :00 mouth MD every 6 Anderso (six) n hours as Cancer needed for Center moderate pain for up to 4 doses. traMADol 2021-06- No Breakthroug 50mg Take 1 Univers (Ultram) 50 2-08 12-08 h cancer tablet (50 ity of mg tablet 00:00: 00:00 pain mg) by [place] 00 :00 mouth MD every 6 Anderso (six) n hours as Cancer needed for Center moderate pain for up to 4 doses. traMADol 2021-06- No Breakthroug 50mg Take 1 Univers (Ultram) 50 2-08 12-08 h cancer tablet (50 ity of mg tablet 00:00: 00:00 pain mg) by [place] 00 :00 mouth MD every 6 Anderso (six) n hours as Cancer needed for Center moderate pain for up to 4 doses. traMADol 2021-06- No Breakthroug 50mg Take 1 Univers (Ultram) 50 2-08 12-08 h cancer tablet (50 ity of mg tablet 00:00: 00:00 pain mg) by [place] 00 :00 mouth MD every 6 Anderso (six) n hours as Cancer needed for Center moderate pain for up to 4 doses. Depakote Depakote No 1 Q1D Depakote S weeny 250 [...] route at bedtime. Depakote ER Depakote ER 2021-0 No 2 BID Depakote [place] 500 mg 500 mg 8-18 ER 500 mg Commun i tablet,exte tablet,exte 00:00: tablet,ext ty nded nded 00 ended Hospita release release release l Take 2 Take 2 Take 2 Clinics tablets tablets tablets twice a day twice a day twice a by oral by oral day by route. route. oral route. Depakote ER Depakote ER No 1 BID Depakote [place] 500 mg 500 mg ER 500 mg Commun i tablet,exte tablet,exte tablet,ext ty nded nded ended Hospita release release release l Take 1 Take 1 Take 1 Clinics tablet tablet tablet twice a day twice a day twice a by oral by oral day by route. route. oral route. fluoxetine fluoxetine No 1capsul Q1D fluoxetine [place] 10 mg 10 mg e(s) 10 mg Communi capsule capsule capsule ty Take 1 Take 1 Take 1 Hospita capsule capsule capsule l every day every day every day Clinics by oral by oral by oral route. route. route. levothyroxi levothyroxi No 1 Q1D levothyrox [place] ne 150 mcg ne 150 mcg ine 150 Communi tablet Take tablet Take mcg tablet ty 1 tablet 1 tablet Take 1 Hospi ta every day every day tablet l by oral by oral every day Clin ics route. route. by oral route. atorvastati atorvastati No 1 Q1D atorvastat [place] n 40 mg n 40 mg in 40 mg Commu ni tablet Take tablet Take tablet ty 1 tablet 1 tablet Take 1 Hospi ta every day every day tablet l by oral by oral every day Clin ics route. route. by oral route. ergocalcife ergocalcife No 1capsul Q1W ergocalcif [place] rol rol e(s) andrea Communi (vitamin (vitamin (vitamin ty D2) 1,250 D2) 1,250 D2) 1,250 Hospita mcg (50,000 mcg (50,000 mcg l unit) unit) (50,000 Clinics capsule capsule unit) Take 1 Take 1 capsule capsule capsule Take 1 every week every week capsule by oral by oral every week route. route. by oral route. fluoxetine fluoxetine No 1capsul Q1D fluoxetine [place] 10 mg 10 mg e(s) 10 mg Communi capsule capsule capsule ty Take 1 Take 1 Take 1 Hospita capsule capsule capsule l every day every day every day Clinics by oral by oral by oral route. route. route. levothyroxi levothyroxi No 1 Q1D levothyrox [place] ne 137 mcg ne 137 mcg ine 137 Communi tablet Take tablet Take mcg tablet ty 1 tablet 1 tablet Take 1 Hospi ta every day every day tablet l by oral by oral every day Clin ics route. route. by oral route. levothyroxi levothyroxi No 1 Q1D levothyrox [place] ne 150 mcg ne 150 mcg ine 150 Communi tablet Take tablet Take mcg tablet ty 1 tablet 1 tablet Take 1 Hospi ta every day every day tablet l by oral by oral every day Clin ics route. route. by oral route. propranolol propranolol No 1 BID propranolo [place] 10 mg 10 mg l 10 mg Communi tablet Take tablet Take tablet ty 1 tablet 1 tablet Take 1 Hospi ta twice a day twice a day tablet l by oral by oral twice a Clinic s route. route. day by oral route. quetiapine quetiapine No 3 Q1D quetiapine [place] 25 mg 25 mg 25 mg Communi tablet Take tablet Take tablet ty 3 tablets 3 tablets Take 3 Hos rome every day every day tablets l by oral by oral every day Clin ics route at route at by oral bedtime. bedtime. route at bedtime. Vital Signs Vital Name Observation Time Observation Value Comments Source BP Diastolic 2022-02-11 00:00:00 74 mm[Hg] [facility] s Height 2022-02-11 00:00:00 65 [in_i] [facility] BMI (Body Mass 2022-02-11 00:00:00 34.1 kg/m2 [facility] s BP Systolic 2022-02-11 00:00:00 122 mm[Hg] [facility] Body Weight 2022-02-11 00:00:00 3280 [oz_av] [facility] Body Weight 2022-02-07 00:00:00 3280 [oz_av] [facility] BP Diastolic 2022-02-07 00:00:00 72 mm[Hg] [facility] Height 2022-02-07 00:00:00 65 [in_i] [facility] BMI (Body Mass 2022-02-07 00:00:00 34.1 kg/m2 [facility] s BP Systolic 2022-02-07 00:00:00 120 mm[Hg] [facility] Systolic blood 2022-06-03 21:22:15 132 mm[Hg] Univer sity of pressure [facility] Diastolic blood 2022-06-03 21:22:15 83 mm[Hg] Unive rsity of pressure [facility]eli [facility] Heart rate 2022-06-03 21:22:15 73 /[facility] Body temperature 2022-06-03 21:22:[address] [facility] Meli [facility] Respiratory rate 2022-06-03 21:22:15 17 /min [facility] Meli [facility] Oxygen saturation in 2022-06-03 21:22:15 96 /min [facility] blood by Meli guillory Pulse oximetry [facility] Body height 2022-06-01 02:01:00 165 cm [facility] Meli [facility] Body weight 2022-06-01 02:01:00 89.6 kg Universi ty [facility] MD [facility] BMI 2022-06-01 02:01:00 32.91 kg/m2 Universi ty [facility] MD [facility] Procedures Procedure Date / Time Performing Clinician Source Performed COMPLETE BLOOD COUNT W/ 2022-06-03 10:57:00 Aye Brody [facility] DIFFERENTIAL [facility] BASIC METABOLIC PANEL, 2022-06-03 10:57:00 Aye Brody [facility] CALCIUM TOTAL [facility] MAGNESIUM LEVEL 2022-06-03 10:57:00 Aye Brody [place] [facility] [place] [facility] PHOSPHORUS LEVEL 2022-06-03 10:57:00 Brody, Aye [facility] Center Results CBC 2022-06-03 10:57:00 Aye Brody [facility] MANUAL DIFFERENTIAL 2022-06-03 10:57:00 Aye Brody [facility] GLUCOSE LEVEL 2022-06-03 10:57:00 Aye Brody [facility] [place] [facility] BLOOD UREA NITROGEN 2022-06-03 10:57:00 Aye Brody [facility] [place] [facility] ELECTROLYTE PANEL 2022-06-03 10:57:00 Aye Brody [facility] [place] [facility] SERUM CREATININE 2022-06-03 10:57:00 Aye Brody [facility] [place] [facility] .GLOMERULAR FILTRATION 2022-06-03 10:57:00 Aye Brody [facility] RATE [facility] CALCIUM LEVEL TOTAL 2022-06-03 10:57:00 Aye Brody [facility] COMPLETE BLOOD COUNT W/ 2022-06-02 10:23:00 Aye Brody [facility] DIFFERENTIAL [facility] BASIC METABOLIC PANEL, 2022-06-02 10:23:00 Aye Brody [facility] CALCIUM TOTAL [facility] MAGNESIUM LEVEL 2022-06-02 10:23:00 Aye Brody [facility] [place] [facility] PHOSPHORUS LEVEL 2022-06-02 10:23:00 Aye Brody [facility] Center Results CBC 2022-06-02 10:23:00 Aye Brody [facility] MANUAL DIFFERENTIAL 2022-06-02 10:23:00 Aye Brody [facility] [place] [facility] GLUCOSE LEVEL 2022-06-02 10:23:00 Aye Brody [facility] [place] [facility] BLOOD UREA NITROGEN 2022-06-02 10:23:00 Aye Brody [facility] [place] [facility] ELECTROLYTE PANEL 2022-06-02 10:23:00 Aye Brody [facility] [place] [facility] SERUM CREATININE 2022-06-02 10:23:00 Aye Brody [facility] [place] [facility] .GLOMERULAR FILTRATION 2022-06-02 10:23:00 Aye Brody [facility] CALCIUM LEVEL TOTAL 2022-06-02 10:23:00 Aye Brody [facility] COMPLETE BLOOD COUNT W/ 2022-06-01 09:58:00 Aye Brody [facility] DIFFERENTIAL [facility] BASIC METABOLIC PANEL, 2022-06-01 09:58:00 Aye Brody [facility] CALCIUM TOTAL [facility] MAGNESIUM LEVEL 2022-06-01 09:58:00 Aye Brody [facility] [place] [facility] PHOSPHORUS LEVEL 2022-06-01 09:58:00 Aye Brody [facility] [place] [facility] Results CBC 2022-06-01 09:58:00 Aye Brody [facility] [place] [facility] MANUAL DIFFERENTIAL 2022-06-01 09:58:00 Aye Brody [facility] GLUCOSE LEVEL 2022-06-01 09:58:00 Aye Brody [facility] [place] [facility] BLOOD UREA NITROGEN 2022-06-01 09:58:00 Aye Brody [facility] ELECTROLYTE PANEL 2022-06-01 09:58:00 Aye Brody [facility] [place] [facility] SERUM CREATININE 2022-06-01 09:58:00 Aye Brody [facility] [place] [facility] .GLOMERULAR FILTRATION 2022-06-01 09:58:00 Aye Bordy [facility] CALCIUM LEVEL TOTAL 2022-06-01 09:58:00 Aye Brody [facility] US LEG VENOUS DOPPLER 2022-05-31 15:19:06 Aye Brodyer sity [facility] BILATERAL [facility] ECHOCARDIOGRAM 2D COMPLETE 2022-05-31 15:11:15 [facility] 2022-05-31 11:10:00 Aye Brody [facility] [place] [facility] BLOOD UREA NITROGEN 2022-05-31 11:10:00 Aye Brody [facility] ELECTROLYTE PANEL 2022-05-31 11:10:00 Aye Brody [facility] [place] [facility] SERUM CREATININE 2022-05-31 11:10:00 Aye Brody [facility] [place] [facility] .GLOMERULAR FILTRATION 2022-05-31 11:10:00 Aye Brody [facility] RATE [facility] CALCIUM LEVEL TOTAL 2022-05-31 11:10:00 Aye Brody [facility] COMPLETE BLOOD COUNT W/ 2022-05-31 11:10:00 [facility] BASIC METABOLIC PANEL, 2022-05-31 11:10:00 Aye Brody [facility] CALCIUM TOTAL [facility] MAGNESIUM LEVEL 2022-05-31 11:10:00 Aye Brody [facility] [place] [facility] PHOSPHORUS LEVEL 2022-05-31 11:10:00 Aye Brody [facility] [place] [facility] TROPONIN T 2022-05-31 11:10:00 Aye Brody [facility] [place] [facility] NT PRO BNP 2022-05-31 11:10:00 Aye Brody [facility] [place] [facility] Results CBC 2022-05-31 11:10:00 Aye Brody [facility] [place] [facility] MANUAL DIFFERENTIAL 2022-05-31 11:10:00 Aye Brody [facility] CT ABDOMEN PELVIS W 2022-05-31 06:54:00 Meche Leonard [facility] CONTRAST [facility] CT CHEST W CONTRAST 2022-05-31 06:54:00 [facility] (SARS-COV-2) 2022-05-31 04:57:00 [facility]YMP[facility]OMAT[facility]-LT [facility] CONFIRM ABORH TYPE 2022-05-31 02:22:00 Theo Clement Univer sity [facility] BLOODCULTURE 2022-05-31 01:33:00 Meche Leonard [facility] [place] [facility] COMPLETE BLOOD COUNT W/ 2022-05-31 01:33:00 Meche Leonard [facility] DIFFERENTIAL [facility] COMPREHENSIVE METABOLIC 2022-05-31 01:33:00 Meche Leonard [facility] PANEL [facility] MAGNESIUM LEVEL 2022-05-31 01:33:00 Meche Leonard [facility] [place] [facility] PHOSPHORUS LEVEL 2022-05-31 01:33:00 Meche Leonard [facility] [place] [facility] PROTHROMBIN TIME 2022-05-31 01:33:00 Meche Leonard [facility] [place] [facility] APTT 2022-05-31 01:33:00 Meche Leonard [facility] [place] [facility] TYPE AND SCREEN 2022-05-31 01:33:00 Meche Leonard [facility] [place] [facility] LACTIC ACID, VENOUS 2022-05-31 01:33:00 Meche Leonard [facility] ABORH 2022-05-31 01:33:00 Meche Leonard [facility] [place] [facility] ANTIBODY SCREEN 2022-05-31 01:33:00 Meche Leonard [facility] [place] [facility] Results CBC 2022-05-31 01:33:00 Meche Leonard [facility] [place] [facility] MANUAL DIFFERENTIAL 2022-05-31 01:33:00 Meche Leonard [facility] GLUCOSE LEVEL 2022-05-31 01:33:00 Meche Leonard [facility] [place] [facility] BLOOD UREA NITROGEN 2022-05-31 01:33:00 Meche Leonard [facility] ELECTROLYTE PANEL 2022-05-31 01:33:00 Meche Leonard [facility] [place] [facility] SERUM CREATININE 2022-05-31 01:33:00 Meche Leonard [facility] [place] [facility] .GLOMERULAR FILTRATION 2022-05-31 01:33:00 Meche Leonard [facility] CALCIUM LEVEL TOTAL 2022-05-31 01:33:00 Meche Leonard [facility] ALBUMIN LEVEL 2022-05-31 01:33:00 Meche Leonard [place] [facility] ALKALINE PHOSPHATASE 2022-05-31 01:33:00 Meche Leonard [facility] ALANINE AMINOTRANSFERASE 2022-05-31 01:33:[address] [facility] ASPARTATE AMINOTRANSFERASE 2022-05-31 01:33:00 Meche Leonard [facility] TOTAL PROTEIN 2022-05-31 01:33:00 Meche Leonard [place] [facility] FRACTIONATED BILIRUBIN 2022-05-31 01:33:00 Meche Leonard [facility] CLOT EXPIRATION DATE 2022-05-31 01:33:00 Meche Leonard [facility] TMP INTERPRETATION 2022-05-31 01:33:00 Meche Leonard [facility] ANTIBODY SCREEN NEGATIVE [facility] PATHOLOGY OUTSIDE 2022-05-16 00:00:00 Shruthi Salgado [facility] INTERPRETATION [facility] OSI CT PELVIS 2022-05-15 20:22:00 Tosha Dhillon [facility] Plan of Care Planned Activity Planned Date Details Comments Source Diagnostic Test 2022-02-11 HbA1c (hemoglobin [place] [facility] Pending 00:00:00 A1c), blood [code [facility] = HbA1c (hemoglobin A1c), blood] Encounters Start End Encounter Admission Attending Care Care Encounter Source Date/Time Date/Time Type Type Clinicians Facility Department ID 2022-06-03 Outpatient SYSTEM, [facility] [id number] 11:02:45 PROVIDER Adan [place] 2022-05-15 Outpatient ELBENEDICTPO MARCELAPO [id number] 09:10:52 [id number] [facility] 2022-06-10 2022-06-10 Refill Santo, 1.2.840.1 [id number] Univers 00:00:00 00:00:00 Estuardo L [id number] ity of 3.412.2.7 [place] .3.614273 MD Flores8 [facility] 2022-06-10 2022-06-10 Refill [place], 1.2.840.1 [id number] Univers 00:00:00 00:00:00 Estuardo Han [id number] ity of 3.412.2.7 [place] .3.362076 MD Flores8 [facility] 2022-06-04 2022-06-04 Lab Artemio Esqueda 1.2.840.1 [id number] Univers 00:00:00 00:00:00 Shruthi [place] [id number] ity of n 3.412.2.7 [place] .3.941370 MD Flores8 [facility] 2022-06-04 2022-06-04 Telephone [place] 1.2.840.1 [id number] Univers 00:00:00 00:00:00 Mindy Han [id number] ity of 3.412.2.7 [place] .3.407667 MD Flores8 [facility] 2022-05-30 2022-06-03 Hospital Theo Clement 1.2.840.1 [id number] Univers 21:37:00 19:23:00 Encounter Aye Brody [id number] ity of Aditya [place] 3.412.2.7 [place] .3.029956 .8 [facility] 2022-05-30 2022-06-03 Inpatient SUKHDEEP TOSCANO [facility] Med [id number] 21:37:00 19:23:00 ADITYA [place] 2022-06-01 2022-06-01 Outpatient KIT TOSCANO MDA MDA [id number] MD 10:18:06 10:21:59 ADITYA [place] 2022-05-31 2022-05-31 Ancillary Alejo, 1.2.840.1 [id number] [facility] 20:05:00 20:10:00 Procedure Tosha Bernal 16537.1.1 i ty of 3.412.2.7 [place] .3.011606 MD Flores8 [facility] 2022-05-31 2022-05-31 Outpatient KIT DHILLON MDA MDA [id number] 14:21:17 14:21:17 TOSHA [place] 2022-05-31 2022-05-31 Travel 1.2.840.1 [id number] [id number] Univers 00:00:00 00:00:00 [id number] 350.1.13.41 ity of 3.412.2.7 2.[place].7.3.698 [place] .3.500738 084.8 MD Flores8 [facility] 2022-05-30 2022-05-30 Travel 1.2.840.1 [id number] [id number] Univers 00:00:00 00:00:00 [id number] 350.1.13.41 ity of 3.412.2.7 2.2.7.3.698 [place] .[id number] 084.8 MD Flores8 [facility] 2022-05-30 2022-05-30 Orders Knott, 1.2.840.1 [id number] Univers 00:00:00 00:00:00 Only Anant 50156.1.1 ity of Van 3.412.2.7 [place] .[id number] MD Flores8 [facility] 2022-05-15 2022-05-15 Outpatient N KRIS BROTHERS [facility] [id number] 09:13:00 09:13:00 [id number] LAB [facility] 2022-02-11 2022-02-11 Outpatient ERICKSON_R [facility] [id number] [place] 00:00:00 00:00:00 0822 Commun i ty Hospita l Clinics 2022-02-11 2022-02-11 Outpatient Jacqueline [facility] [id number] 00:00:00 00:00:00 Timothy [id number] Toro [id number] 2022-02-11 2022-02-11 Timothy [facility] [place] [facility] [place] 00:00:00 00:00:00 [facility] DO: [address] [facility] [place], [place] CLINIC, [address] JACQUELINE , Ph. [phone] 2022-02-08 2022-02-08 Outpatient ERICKSON_R [facility] [id number] [place] 00:00:00 00:00:00 0819 Commun i ty Hospita l Clinics 2022-02-07 2022-02-07 Outpatient ERICKSON_R [facility] [address] [place] 00:00:00 00:00:00 0818 [facility] 2022-02-07 2022-02-07 Outpatient Jacqueline [facility] [id number] 00:00:00 00:00:00 Timothy [id number] Toro [id number] 2022-02-07 2022-02-07 Timothy [facility] [place] 00:[place]00 00:00:00 [facility] ty DO: [address] [facility] [place], [place], [address] JACQUELINE , Ph. 2022-02-04 2022-02-04 Outpatient JACQUELINE_R [facility] 1236 0 00:00:00 00:00:00 0815 [facility] 2022-02-04 2022-02-04 Timothy [facility] [place] 00:00:00 00:00:00 [facility] DO: [address] [facility] [address] [place], [place] CL[place]IC, [address] JACQUELINE , Ph. 2022-02-04 2022-02-04 Outpatient Jacqueline [facility] [id number] 00:00:00 00:00:00 Timothy [id number] [place] [id number] Results Test Description Test Time Test Comments Results Result Comments Source Blood culture 2022-06-07 10:24:01 Test Item Value Reference Range Interpretation Comme nts Final Report (test code = 8488) No growth Path Review - Bottle/Isolator (test Culture yield may be affected b y sample code = 8499) quality, prior treatment, and transportation conditions....The results have been reviewed and electronically signed by Pathologist:Lyle Sher MD, PhD #[id number] [facility] Interpretation 2022-06-06 20:38:14 Test Item Value Reference Range Interpretation Comments Materials Received (test w7fvnUGcGSGbgLFrOsGu code = 9973) PIByURDfu6xmSLZirXEp ZzEwMzNcZnRuYmpcdWMx CZPdZdGfi1rqe723sHVi j8rgPJPfApO1cQExJJAg hJNrX678PXLoKGnxi5dn x9LwOQQvrXXou3T4UQKE gefkiQw8cGxoJ30va8E5 LvwyL3ibHNPgFSMpQ9Pd XO8vTQKbLxe7KHN3MIX2 XTPwTDQoZ8NqYR8nDELz oPLfDGw0u0ykrEppSUIa YMA0x5zaQRacotVfLO1r vb3sqUx0r0cctmBpIMHx ZKZdvUBQYNAdA4IstMod Re1lqSb7iKqdFcxkPHQ5 Lka8YM9eiw78ois4eBxv EQQrtkqbDdG7SJzfGJDx vwlgUZg9CIwfTYSklSrh MFxtYXJncjcyMFxtYXJn mCS0TPPesUAsX4XkCBBj XCwbVGEtcfa8OaSxOm5a kOHjdXqkFShcj5axk8ck hJNgEfe3TEJiQzImUhzk LYmsx8Ucz9jzJDBvsd2t CHD2tJEvxCign9M0oCOa SQNxjYEexxRcQFWegb99 cWDpeHQwuAHauy4kppYr wHGawIWsCUQ5aLKgytBr TUEvbYDmHKQhPG0czCVa LLLprP2rkluhCVUvHuDe ueqrFIYerQuxkfKyKe0r zVndUME2OKalH2qquI1u ShL8MGngC8fajP1kFId7 ECckbGU3FWMuoE2hIB8u ikwta8muWqLcHN8mnway f4tuJgWoUE1nzrm5q0wd VLM4WQxfRHJaOoH7zzT0 NDBcaGVhZGVyeTcyMFxm a454MQK7EcYzXVHlq9Bu P0HieLmuH73emNwmP48a KKVolBqqmP9qeWebnQ9y DwKnQcKwBHu3gp21OHg3 cjyzfVnlAHw2ftEwZAEf NVM8VVQfhBQzNBYmM8v8 vaUePOVxTNL1OMIhoIFu FWQoS0z3adAhQZI6OEv2 cnBhZGRmdDNcdHJwYWRk YjBcdHJwYWRkZmIzXHRy kVQjfVQotLUhgR8ehUui UABthHHheY4mAQZ9YFKc cmgzMjBcdHJoZHJcbHRy on52NKKqpcIzjTGpoAvi lYTlCCD9KSKgGFSaLVSl RET0MZEeKiAvhjXyYIdq bGJyZHJiXGJyZHJzXGJy PSB9WHEsMpUssdNzOGcc bGJyZHJsXGJyZHJzXGJy NSB0BCOoMcDrjcOxALqq bGJyZHJyXGJyZHJzXGJy IGT5KILqWpWkqtFcGZut bHBhZHQxMFxjbHBhZGZ0 G3cefIGdCZLvLObdfWLs JLLxW4mbqFBdNMxbOOKm cGFkZmwzXGNscGFkYjBc P2fvOAGeIjCwA8JezSp4 MDAwXGNsdmVydGFsdFxj vJGqPIX5OZJeAQVvCLVm ZHV0KIItShIcifQhPYiq bGJyZHJiXGJyZHJzXGJy DOE8BCIgPoHtcxMjGQep bGJyZHJsXGJyZHJzXGJy CGI7UVRiKsAjkbOdRGet bGJyZHJyXGJyZHJzXGJy LCL9BTYlCqUyujPvJAzl bHBhZHQxMFxjbHBhZGZ0 Q1bptZYoNARnZZmuxQRb SXLhV1mafETvXDmzOCVf cGFkZmwzXGNscGFkYjBc K0moBIVcZfPaX5GcwCj6 NjAwXGNsdmVydGFsdFxj zSEgCEO0TMWuKMXxYNTy MOH9RTIpXyUawfSdZAdj bGJyZHJiXGJyZHJzXGJy NRM6RAKgZiClerKtRUqi bGJyZHJsXGJyZHJzXGJy ENL3BANuSfRwnxPqUXcg bGJyZHJyXGJyZHJzXGJy MCW8FPNfBkGcwpWyZKch bHBhZHQxMFxjbHBhZGZ0 P9xtwHAeAETaHZaiqCWl ECYvE3xyoAZsEMlxUWIw cGFkZmwzXGNscGFkYjBc T2acZGHmKvSzP3KblOv5 JfXaKWDnfsQvvC17Xlqa x3UsJJNtHPI2OIfyXTab bFxwbGFpblxmMVxmczIw IUenyebtATIkSIjrW1bh GoLpELLrhEquVRiig3Cm XGYxXGNmMlxmczIwXGIg IJQlVHNqqE4eDjilV2Bo dL5oJExyLomuO0knQDOy l2MibN7yAFxjxNUkvwwn MVxmczIwXGxhbmcxMDMz GWdyN8beTwBuLCOxeCbp ERddx4NnUVMcTPNfKlpa soJoYXl4saXtKXAmrYuj cBVyJXebgzKllYbwl5Fr jzQozDxlXKNlPHd5hjAi bjankIh4tVWiaJmeNSNa lKacmH8nRoYyRiElOEal bGFpblxmMVxmczIwXGxh jlvaLXEwAQwwL5ekUrRe FPAnqMthWJtbv3LgODLu FZVwEcuyyyYyMRFlT19z bGVjdGVkXHBsYWluXGYx XGZzMjBcbGFuZzEwMzNc aGljaFxmMVxkYmNoXGYx XYzuH2fxMsLnJ8WwESOt LaKyuTJpZ4coP9LodNna YXJkXGludGJsXHNzcGFy AGX8bHLkxdKmyVGzhZRr OSVxXWoyDUG3oUJmcavn tIKumzemNLkehbV0CGAg YWluXGYxXGZzMjBcbGFu ZzEwMzNcaGljaFxmMVxk WgLwCHNwRVgeB9beBpGj U1JiYYQeCuFqKgXAEOCl aXZlZFxwbGFpblxmMVxm czIwXGxhbmcxMDMzXGhp W3sgCpImRNSfkTvtNDdo z2KeYOWhHQNoZiffscVs GYn5pxFtSUIbyHpaaA77 Lpyyrp35HEXdt8rsFZUp H2OgrDLcARSqeFEkNQdg MDhcdHJwYWRkZmwzXHRy cGFkZHIxMDhcdHJwYWRk ZnIzXHRycGFkZHQwXHRy gGBkQVJ5Y3z5jqFqXXIx FCr8yzMsFXPsPaHbmXEv SHP6ZSc8ZpsnpsD5dJXp P4b9LxvpqiFeRQygcIDc qh26NDAvnrPosOUwxKvc wGUuFOD3UXHxTUSbKBCh SOI6HJXzLyZvumTwMUzb bGJyZHJiXGJyZHJzXGJy BYQ8DZTbTrRagfNeOIza bGJyZHJsXGJyZHJzXGJy HMZ4YJVgUfPrbxVhZYiy bGJyZHJyXGJyZHJzXGJy EJI7CRDnRqSobrZsRDzc bHBhZHQxMFxjbHBhZGZ0 J4pafVImGUQcVGsbaNZr NDMpS5prsGHdHWilXFVr cGFkZmwzXGNscGFkYjBc S3ozPCPcYjUiC0VmlKh6 MDAwXGNsdmVydGFsdFxj nVYtKCG2UHGeUDKqYSHs RXB0VJQrCnMktzRjYXbu bGJyZHJiXGJyZHJzXGJy TRF1HYSlUgSnemHxDKro bGJyZHJsXGJyZHJzXGJy MMF5OKBmPyMnfoZvUBpa bGJyZHJyXGJyZHJzXGJy MEU4YOMlPwJdbpMoIUpi bHBhZHQxMFxjbHBhZGZ0 B6domSIkSICrINplhEWj IBBbK0qwxSAdHAnpHBMj cGFkZmwzXGNscGFkYjBc F9iuSDKxDtBvY4ZduCs2 NjAwXGNsdmVydGFsdFxj wIXwERC3KKZzKZOyRRQn TBT0WKMeDxLqluFcNQyj bGJyZHJiXGJyZHJzXGJy SFE5AUWoAmFcsrLoGHhz bGJyZHJsXGJyZHJzXGJy WOO5AFDtTxWhjbTcXGjc bGJyZHJyXGJyZHJzXGJy SAT2BICnMuFhfcEoPRup bHBhZHQxMFxjbHBhZGZ0 E1wviWOmISHbFCixxZFd RFGmZ0omiZQpMEukRQYr cGFkZmwzXGNscGFkYjBc U9vrVVUsOfEtV8RtpFa1 AvSzHNGancEmsG19Mrny w8LlJNCjDZB8YKvtGZwk bFxwbGFpblxmMFxmczI0 XHBsYWluXGYxXGZzMjBc bGFuZzEwMzNcaGljaFxm SFzwPeKsXWSaCWwzQ1sa ZcIrH6AsPNFvPxOlGC1c EhH0HBGySiVkRTVbDLGH JSApTHJRJ3JVSrasCRDZ L3ZzxXfenY1rUaPrQfEr KIpkLE9yTZXdN1qkaJJd DMOiOPEfS5omBrJpnW3x aFxmMVxjZjJcZnMyMFxs dHJjaFxjZWxsXHBhcmRc qK34Dopou6PaODKlYIR0 MFxzMFxxbFxwbGFpblxm JPwoxcG1AZJoQDjfLDPn XGZzMjBcbGFuZzEwMzNc aGljaFxmMVxkYmNoXGYx XXvdT3ltUkQqM5OyUDGc MjAgMTEvMjQvMjAyMlxw bGFpblxmMVxmczIwXGxh xwyyBOQqZMzpN7oaQjQc SZZwxImsLMlpb3RuGMOl YBYkUaktxsUzWUr7ffBv XGNlbGxccGFyZFxpbnRi wDlgn5KlkhGixHpgLXBf XHFsXHBsYWluXGYwXGZz JrYwlDzbjZ1kVmMaZyVx VRovLK5mHRRtA8mdmSZd HZTnEPCoT6rhAkCceW5n aFxmMVxjZjJcZnMyMCAx Dz5sAk9wYEYmHEIyDTmq XGYxXGZzMjBcbGFuZzEw MzNcaGljaFxmMVxkYmNo MSYqBDfmJ4fiOgWrT0Jh PISiYdYguETzN4viP3Kk qAzqczUwzFcai8rpzVTk DBlvl5KzczQagOcsBXZo XHFsXHBsYWluXGYwXGZz KvBagQhkvE8hQrOhEuPm AJpePJ4sYAXnF1nygALy CBRdNBUmD6evSvPieI1m aFxmMVxmczIwXHBhcn0= Diagnosis (test code = w0yzdGDgFDUyoDEnFTUl 34) YwwoizSxHOKznKRiE9Xv kolqNJghTQ4mPO4etKoy kERpxUOiAQJwZhCmp4qt r243yIPly7hjCLCXhbxr kPs9oUedY15rr8X8Sgmp Q3wcSFLvWOhfXDBuUYkt oJFuXOw9QBXnxPVyjjWi HjEgKYIysCSpkMC6GKNx CN7vpnhfVMayKJpmZECw jhQ9EZFgfVRmI4TrKABm CW1iipujCKS7MHjwMUFe DJL9SfJxVFNgi1Tutzo5 MjBccGFyZFxwbGFpblxm zcPzBHPoRAHMx37ta9T7 o3wxFJIfaOrePEEvOP3g LR5qULHmcBXehOLoNWOs ijPgRgpbGYMaz8FzVXkn ZizMGaY2UAKuJYDwiPlg J1RgOQPcjxQvPP4nIZ7q MDIyKTpccGFyXGNmMFxw JBXsbOx5NdQchXuvZyJo XVVxssrehgUoRXfuz0yy wtvhjRiqN2VvOXIfTVH6 G7iaqE5fRGcpOWDtNPjd WS46jni7RWUcmkwoeCAu NjBcZmktNzIwXGxpbjIx IxLgLE8YZWEKYjAvPZ5H MZXVQIRPITxdWT7xOR9O UkxZIERJRkZFUkVOVElB KWTZADAXZYLUA7HOFLAQ OIosW0VJH6kYS40BRsql NLStMEUYW5WbUM7RLKWB UyBBVCBMRUFTVCBTVUJN AZVWM1YiSWGPBMYXKiIy LCFfBOXLRVQXWHUHUO5B VK2QJZDGC5LUFCFBAwCM TUVOVFMuXHBhclxsaTE0 YXJlWyfrUWpzueC1GGTq VUbKOFpXQfYPS2SGWMJk TJ6OKCMXP4SLWBHCRcvP KGCINWfiIK3GICZDF90k QVJFIFBSRVNFTlQuIFxw YXIgUGVyaXBoZXJhbCBt QMRaqC1fJYRmiq5ikWEo UYYxz6Zmq4TiFSWjuZWz gK7mYnEaA63daoRxuLoc pw7qoJAfWHCzgtrdHGDg XHBhcn0= Biomarker Block(s) (test x1jukIFgQACmtKSvJSNt code = 9841) NjkhygLfKAFxqJItZ4Oj dbghPRnrZI4bGD0iyNej pTOulKPkTITnKpBea8ho h728mBHvg6hlBPBRelfb wAn8eRpjQ65fc7C1Qfrj U15zxRByFCO2IUTeVTXi vSBgQSSyAAJ7WHSakAHk B1yqZTGpJL5btjcmAVoa TEepZSBysKI0LHYzrAQp O2YdMMPxQFjbIMBjkpg0 SiApFy2qxGQthXbeGFji YXJkXHBsYWluXGZzMjAg QCYaf1BiIvokU3b9VHEm cGFyfQ== Disclaimer (test code = a9nduXBjYUFodWZhXaSq 9844) SIEjJDIff6uuSQMnwNQd ZzEwMzNcZnRuYmpcdWMx MNWsZdLcb5klz719uBSb y3uiLHOvPeO9vTAlPTIu hMDiW478DEGdIAdbd1sd v1WcPKPzeHVkm4A5KKWV pvpuuNr7sSfdT04rp4M6 RqxbU5wbQEFpYMYwF6Lj DF4cUBBePzw2YMA7TCA8 WXUhZYGrX0WhGL3rAPXz lWVhXJv8b3xriSnqMNHx EDX2d9lfFBplfwZdGY3c md0jdQo2o1cmiqQqDYVq RHIjmFDSWVNbG2QfeYkd Xm1boTq6iAerZdhzGLI4 Vtv0OD6bml98lxf1kGpt MQVgslgaXtD3EKgfJGIp wagiBDq8EBuqBOPfnXK0 YINjwDBfV4CvXNFsGZ4g izf2XDB2XUxjODEtTrB1 NDBcaGVhZGVyeTcyMFxm u609SGL2EsQaEO4cD6Ii t3E1iW0maQCeDLRovGYe XsNfCPPkot1kcQMsAQez o0MhMLN3syL4sHWbkJKg NHYyYC17Ovwgv8YfAwfj GSB2RODumuIze5Czg6us UuMsohIlN2jqJ4RaMRWh AIMgHGHhTeEgqrCgo0Fs u6BtkBWueCv9y7upLVMo ZWFigMnaw0ypNOD4SJTt Z1T7mHHcm8euJCzsZDFg aZR8taP5WEIwgUSqV4Le kQ4uNRCfIL0spvo8x6ye QQB3JWzpSATlVhZ1rnD5 NDBcaGVhZGVyeTcyMFxm c027NND8MsOsZBWnx1Ir W1TzeWazK83epQkdI08b RCHxbFqnuH5wjJbonS5r ZjBcZnMyNFxxbFxwbGFp acttTIfwpgG5SGyxomkf RNMxXEukB1nhSpGnHMRl aRchMDqcc0PuRSAuOXEe NunnwmT5PPLBq22aUCUr f2MnXSCmbY7wgZDqWIty yxAcnRB8SAsuoxHoEjJb wkCgAVQoxH9jINZmWU5m IVAjikLnwg2javWyOKYp RWFmS8DrkjedpJapyiNy MRQplp4fejPwBQR4LLXQ EC7QOSEcIWXku67zPRFh tZnaoH5hfSFwkoJjWSKy q5NleM4jsBIYOYAlU6pv GN4yHYlku3FtiZFtjLZl iML0EXKnk7KhKnSkpdMy lNBjnLTzJ4KtvTyjE1mg OMVlTDOjnzWjtOGtp5Za OTRawLL7tXIzZQ7TJbMR j54tIALfCVKEvvViQOAv fXqkfSP2pxB8zD3eXqFE ZiBhcHBsaWNhYmxlLCBj b332tw5zkcS0FEWzQFSz hjgye8ZvYVEiAJUcpT68 DQOcGKCeug2chqtgyBEf blFvE4Qsayh4sC8rXYVo YWluXGYxXGZzMjJcbGFu ZzEwMzNcaGljaFxmMVxk DtIoOEMiJWaqT2rdUlIt ZnMyMlxwYXJ9 [facility] StationPhosphorus [id number] 11:38:14 Test Item Value Reference Range Interpretation Comments Phosphorus (test code = 2777-1) 3.4 mg/dL 2.5-4.5 [facility] StationCalcium [id number] 11:38:13 Test Item Value Reference Range Interpretation Comments Calcium Lvl (test code = 90717-7) 9.3 mg/dL 8.4-10.2 [facility] StationElectrolyte [id number] 11:38:12 Test Item Value Reference Range Interpretation Comments Sodium Lvl (test code = 132 See_Comment L [Au tomated message] 1152-2) The system [employer] generated this result transmitted ref erence range: 136 - 14 5 mEq/L. The refe rence range was not u sed to interpret this result as normal/abnor mal. Potassium Lvl (test code 4.8 See_Comment [A utomated message] = 7203-3) The system [employer] generated this result transmitted ref erence range: 3.5 - 5. 1 mEq/L. The refe rence range was not u sed to interpret this result as normal/abnor mal. Chloride (test code = 97 See_Comment L [Auto mated message] 5989-0) The system [employer] generated this result transmitted ref erence range: 98 - 107 mEq/L. The refe rence range was not u sed to interpret this result as normal/abnor mal. CO2 (test code = 2028-02) 26 See_Comment [A utomated message] The system [employer] generated this result transmitted ref erence range: 22 - 29 mEq/L. The reference r julio was not used to interpret this result as normal/abnor mal. Anion Gap (test code = 9 See_Comment [Aut omated message] 72095-1) The system [employer] generated this result transmitted ref erence range: 4 - 14 m Eq/L. The reference r juloi was not used to interpret this result as normal/abnor mal. Lab Interpretation (test Abnormal code = 97179-3) [facility] StationGlucose [id number] 11:38:11 Test Item Value Reference Range Interpretation Comments Glucose Level (test code 104 mg/dL 70-99 H Eff ective 01/17/16, = 2345-7) the glucose reference inter vals have been updat ed based on [place] an Diabetes Associ ation guidelines (Standards of Medical Care in Diabetes 2016. Diabetes Care 2 016; 39: S13-S22).Fa sting blood glucose:Normal: 70-99 mg/dLImpa ired fasting glucose (increased risk for diabetes or pre-diabetes): 100-125 mg/dLDiabetes mellitus: >/=12 6 mg/dL Random bl ood glucose:Normal: 70-199 mg/dLNot e: Random glucose >100 mg/dL is associ ated with increased risk for diabetes Lab Interpretation (test Abnormal code = 36720-3) [facility] StationGlomerular Filtration Rate 2022-06-03 11:38:05 Test Item Value Reference Range Interpretation Comments eGFR (test code = 109 See_Comment The eGFRcr [place] calculated [place] [address]) the 2020 CKD-EP I creatinine equation using creatinine, patient's age, and sex for adults 18 years of age and older. Other fa ctors, especially musc le mass, may affect accuracy and need to be considered.A ccording to the Kidney Dise ase: Improving Global Outcomes (KDIGO) CKD Work Group 2012 Clinical Practice Guidel ine, chronic kidney disease (CKD) is defined as the abnormalities of kidney struc ture or function, prese nt for more than 3 months, with implications fo r health. CKD should be class ified by cause, GFR alden gory, and albuminuria cat egory. KDIGO guidelines prov ronan the following GFR c ategoriesStage Description GFR mL/min/1.73 m2G1* Normal or high >= 90G2* Mildly decrease d 60-89G3a Mildly to moder ately decreased 45-59 G3b Moderately to severely dec reased 30-44G4 Severely decrea sed 15-29G5 Kidney failure <15*In the absence of evid ence of kidney damage, neither G1 nor G2 fulfill criteri a for CKD. [Automated mess age] The system which ge nerated this result transmit linsey reference range: >=60 mL/ min/1.73 sq. m. The referenc e range was not used to int erpret this result as susie l/abnormal. [facility] StationMagnesium Abrgc2622-22-20 11:38:04 Test Item Value Reference Range Interpretation Comments Magnesium (test code = 37023-6) 1.9 mg/dL 1.6-2.6 [facility].Serum [id number] 11:38:03 Test Item Value Reference Range Interpretation Comments Creatinine (test code = 2160-0) 0.59 mg/dL 0.51-0.95 [facility] StationBUN2022-12-12 11:38:02 Test Item Value Reference Range Interpretation Comments BUN (test code = 3094-0) 9 mg/dL 6- [facility] StationDifferential2022-12-12 11:20:37 Test Item Value Reference Range Interpretation Comments Neutrophil % (test code = 48.4 % 42.0-66.0 770-8) Lymphocyte % (test code = 38.7 % 24.0-44.0 736-9) Monocyte % (test code = 10.2 % 2.0-7.0 H 5905-5) Eosinophil % (test code = 1.6 % 1.0-4.0 713-8) Basophil % (test code = 0.9 % 0.0-1.0 706-2) IGRE % (test code = 0.2 % 0.0-0.4 IGRE % c ount 39738-8) includes Metamyelocytes, Myelocytes, and Promyelocytes. Neutrophil Abs (test code 2.18 K/uL 1.70-7.30 = 751-8) Lymphocyte Abs (test code 1.74 K/uL 1.00-4.80 = 731-0) Monocyte Abs (test code = 0.46 K/uL 0.08-0.70 742-7) Eosinophil Abs (test code 0.07 K/uL 0.04-0.40 = 711-2) Basophil Abs (test code = 0.04 K/uL 0.00-0.10 704-7) IG Abs (test code = 0.01 K/uL 0.00-0.04 81706-7) Lab Interpretation (test Abnormal code = 24321-7) [facility] [place].[id number] 11:20:29 Test Item Value Reference Range Interpretation Comments WBC (test code = 4.5 K/uL 4.0-11.0 6690-2) RBC (test code = 789-8) 3.29 See_Comment L [Au tomated message] The system [employer] generated this result transmitted ref erence range: 4.00 - 5 .50 M/uL. The refer ence range was not u sed to interpret this result as normal/abnor mal. Hgb (test code = 718-7) 10.3 See_Comment L [Au tomated message] The system [employer] generated this result transmitted ref erence range: 12.0 - 1 6.0 gm/dL. The refe rence range was not u sed to interpret this result as normal/abnor mal. Hct (test code = 31.3 % 37.0-47.0 L 4544-3) MCV (test code = 787-2) 95 fL 82-98 MCH (test code = 785-6) 31.3 pg 27.0-31.0 H MCHC (test code = 32.9 See_Comment [Automate d message] 786-4) The system [employer] generated this result transmitted ref erence range: 31.0 - 3 6.0 gm/dL. The refe rence range was not u sed to interpret this result as normal/abnor mal. RDW-SD (test code = 45.6 fL 35.1-46.3 04442-6) RDW-CV (test code = 13.0 % 12.0-15.5 788-0) Platelet count (test 223 K/uL 140-440 code = 777-3) MPV (test code = 8.9 fL 4.0-10.4 71365-9) INRBC (test code = 0.0 % See_Comment The INRBC (instrument 52190-3) NRBC) value ref lects the enumeration of nucleated red b lood cells contained in a 200uL sampleof whole blood analyzed by the instrument. Thi s value maydiffer from the NRBC value repo rted in a manual differential,wh ich is based on a 100 cell differential. [Automated mess age] The system [employer] generated this result transmitted ref erence range: <=0.0. T he reference range was not used to int erpret this result as normal/abnormal . Lab Interpretation Abnormal (test code = 37172-6) [facility] StationTMP Interpretation Antibody Screen [id number] 12:18:02 Test Item Value Reference Range Interpretation Comments TMP Auto Neg At the present ABSC Interp time, patient (test code = plasma shows no ____JUAN DIEGO LAWRENCE 7535) evidence of RBC MD WILFRIDO, P hD - alloantibodies. 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 The refe rence range was not u sed to interpret th is result as normal/abnormal . Lab Interpretation (test Abnormal code = 23829-8) [facility] StationTroponin T (In-House)2022-05-31 11:45:05 Test Item Value Reference Range Interpretation Comments Troponin T (test code 11 ng/L See_Comment < 19 n g/L Suggest retest = 22784-8) at 3 to 6 hours later to rule out myocar dial infarction >= 1 9 to <=52 ng/L Possible m yocardial injury. Suggest retest at 3 hours. - a ch julio of < 20 ng/L, retest at 6 hours - a saldana e of >= 20 ng/L, suggestiv e of myocardial infa rction > 52 ng/L Suggest krysten of myocardial infa rction Critical value will be reported when c Donnell is > 52 ng/L and onl y reported for the first i n a series. Hemolyz ed specimens with Hemolysis Index >100 (100 mg/dl or moderate hemoly sis) may cause interfere nces and falsely low res ults. [Automated mess age] The system which ge nerated this result tra nsmitted reference range : <=18. The reference r julio was not used to int erpret this result as normal/abnormal . [facility] StationCOVID-19 (SARS-CoV-2)[id number] 05:47:49 Test Item Value Reference Range Interpretation Comments COVID19 Not Detected Not Detected (SARS-CoV-2) (test code = 11425-3) COVID19 SARS Inpatient Indication (test Admission code = 54753) Covid 19 Comment See Note The marlene S ARS-CoV-2 (test code = [place] [address]) use on the nathan s [employer] System is a jos l-time RT-PCR assay in tended for the qualita tive detection of SARS-CoV-2 (COV ID-19) viral RNA in nasopharyngeal swabs from either individuals allie pected of COVID-19 by their healthcare prov ider or from any individual, inc luding individuals wit hout symptoms or oth er reasons to susp ect COVID-19. A fac t sheet for patie nts provided by the director of safety and security ([employer]) can be rev iewed at: https://www.fda .gov/m edia/574130/yadira nload. A fact sheet fo Health Care pro viders is provided by the director of safety and security ([employer]) and can be reviewed at: https://www.fda .gov/m edia/818012/yadira nload Results must be interpreted wit hin the context of all relevant clinic al and laboratory find ings and should not form the sole basis for a diagnosis or treatment decis ion. Positive result s do not rule out bacterial infec tion or co-infection with other viruses. Negative result s do not preclude SARS-CoV-2 infe ction and must be com bined with clinical observations, p atient history, and/or epidemiological information. Th is assay has been authorized by t [facility] for use only un gianluca Emergency Use Authorization ( EUA) in laboratories that have been CLIA-certified to perform moderate-comple xity and high-comple xity tests. [facility], CLIA Accreditation #[id number] and CAP Accreditation #[id number], verif ied the performance characteristics of this assay. Int ernal controls are us ed to monitor all sta ges of the test proces s. [facility] StationConfirm [id number] 05:12:22 Test Item Value Reference Range Interpretation Comments ABORh Confirm. (test code = 882-1) A NEG [facility] StationAntibody [id number] 05:10:23 Test Item Value Reference Range Interpretation Comments ABSC. (test code = 890-4) Negative ABSC [facility] StationABORh2022-12-09 05:10:22 Test Item Value Reference Range Interpretation Comments ABORh. (test code = 882-1) A NEG [facility] StationClot Expiration [id number] 05:10:19 Test Item Value Reference Range Interpretation Comments T & S Expiration (test code = 06/02/2022 5318) [facility] StationFractionated [id number] 02:12:42Bili Total<0.3<=1.2 mg/dLUT COBRE VALLEY REG[facility]AL MEDICAL CENTERUnCovenant Medical CenterTotal [id number] 02:12:40 Test Item Value Reference Range Interpretation Comments Total Protein (test code = 2885-2) 7.2 g/dL 6.4-8.3 [facility] StationAlkaline [id number] 02:12:38 Test Item Value Reference Range Interpretation Comments Alk Phos (test code = 6768-6) 71 U/L 35-104 [facility] StationALT2022-12-09 02:12:37 Test Item Value Reference Range Interpretation Comments ALT (test code = 31 U/L See_Comment [Automated message] The 1741-11) system which ge nerated this result transmit linsey reference range : <=33. The reference range was not used to interpr et this result as susie l/abnormal. [facility] StationAlbumin [id number] 02:12:32 Test Item Value Reference Range Interpretation Comments Albumin Lvl (test code 4.3 See_Comment [Aut omated message] The = 1750-12) system which ge nerated this result tra nsmitted reference range : 3.5 - 5.2 gm/dL. The refe rence range was not used to interpret this result as normal/abnormal . [facility] StationAspartate Aminotransferase 2022-05-31 02:12:31 Test Item Value Reference Range Interpretation Comments AST (test code = 25 U/L See_Comment [Automated message] The 1920-01) system which ge nerated this result transmit linsey reference range : <=32. The reference range was not used to interpr et this result as susie l/abnormal. [facility] StationaPTT2022-12-09 02:10:43 Test Item Value Reference Range Interpretation Comments aPTT (test code = 27.2 See_Comment [Automate d message] The 88508-3) system which ge nerated this result transmit linsey reference range : 22.8 - 34.2 second(s). The reference range was not used to interpr et this result as susie l/abnormal. [facility] StationProthrombin Time with [id number] 02:10:42 Test Item Value Reference Range Interpretation Comments PT (test code = 13.3 See_Comment [Automated message] The 5901-) system which ge nerated this result transmit linsey reference range : 11.9 - 14.1 second(s). The reference range was not used to interpr et this result as susie l/abnormal. INR (test code = 1.01 0.89-1.10 6301-6) [facility] StationVB [id number] 01:41:21 Test Item Value Reference Range Interpretation Comments V Lactate (test code = 2519-7) 0.5 mmol/L 0.5-1.6 [facility]
[2022-07-01 18:36] LABS: Absolute Lymphocytes (CBC) 1.8 K/uL (0.7-4.9); Hematocrit 33.2 % (36.0-45.0); Lymphocytes % 25.7 % (15.3-44.8); MCV 90.7 fL (80-100); MPV 6.5 fL (7.6-11.3); RBC Red Blood Cell Count 3.65 M/uL (3.86-4.86)
--- NOTE | 2022-07-01 18:43 | EDPHYS ---
Physician Documentation [facility] Name: Laura Mendoza Age: 52 yrs Sex: Female : 1970 Arrival Date: 07/01/2022 Time: 17:51 Bed 13 Private MD: Giovanni Gottlieb HPI: 07/01 18:35 This 52 yrs old Female presents to ER via Ambulatory with complaints of Diarrhea. snw 18:35 Patient presents to ED for recheck of: extensive, localized anal cancer with open snw wound. The affected area is on the anal/sacral. Previous treatment: Pt was admitted here in Nov. MD [place] for two weeks with s/s treatment. Pt sent for diverting colostomy. Saw Dr. Dc today, consulted Dr. Maya. 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 - Social history:: Smoking status: Patient denies any tobacco usage or history of. ROS: 18:34 Constitutional: Negative for fever, chills, and weight loss, Eyes: Negative for injury, snw pain, redness, and discharge, ENT: Negative for injury, pain, and discharge, Neck: Negative for injury, pain, and swelling, Cardiovascular: Negative for chest pain, palpitations, and edema, Respiratory: Negative for shortness of breath, cough, wheezing, and pleuritic chest pain, Back: Negative for injury and pain, : Negative for injury, bleeding, discharge, and swelling, MS/Extremity: Negative for injury and deformity, Skin: Negative for injury, rash, and discoloration, Neuro: Negative for headache, weakness, numbness, tingling, and seizure, Psych: Negative for depression, anxiety, suicide ideation, homicidal ideation, and hallucinations. 18:34 Abdomen/GI: Positive for incontinence of stool. Exam: 18:32 Constitutional: This is a well developed, well nourished patient who is awake, alert, snw and in no acute distress. Head/Face: Normocephalic, atraumatic. Eyes: Pupils equal round and reactive to light, extra-ocular motions intact. Lids and lashes normal. Conjunctiva and sclera are non-icteric and not injected. Cornea within normal limits. Periorbital areas with no swelling, redness, or edema. ENT: Nares patent. No nasal discharge, no septal abnormalities noted. Tympanic membranes are normal and external auditory canals are clear. Oropharynx with no redness, swelling, or masses, exudates, or evidence of obstruction, uvula midline. Mucous membranes moist. Neck: Trachea midline, no thyromegaly or masses palpated, and no cervical lymphadenopathy. Supple, full range of motion without nuchal rigidity, or vertebral point tenderness. No Meningismus. Chest/axilla: Normal chest wall appearance and motion. Nontender with no deformity. No lesions are appreciated. Cardiovascular: Regular rate and rhythm with a normal S1 and S2. No gallops, murmurs, or rubs. Normal PMI, no JVD. No pulse deficits. Respiratory: Lungs have equal breath sounds bilaterally, clear to auscultation and percussion. No rales, rhonchi or wheezes noted. No increased work of breathing, no retractions or nasal flaring. Back: No spinal tenderness. No costovertebral tenderness. Full range of motion. 18:32 Abdomen/GI: Inspection: abdomen appears normal, Bowel sounds: normal, Rectal exam: rectal tone flaccid, tenderness, that is moderate, that is severe, the exam is chaperoned by a family member, foul smelling, open anal/sacral wound. Vital Signs: 17:59 BP 129 / 94; Pulse 90; Resp 16; Temp 97.9; Pulse Ox 98% on R/A; Weight 79.83 kg; Height iw 5 ft. 5 in. (165.10 cm); 19:00 BP 119 / 66; Pulse 72; Resp 16; Temp 98; Pulse Ox 99% on R/A; Pain 6/10; pf1 20:00 BP 116 / 66; Pulse 72; Resp 16; Pulse Ox 98% ; Pain 6/10; pf1 17:59 Body Mass Index 29.29 (79.83 kg, 165.10 cm) iw MDM: 18:02 Patient medically screened. snw 18:38 Differential diagnosis: mass/hemorrhage/sacral osteo. Data reviewed: vital signs, snw nurses notes. Data reviewed: old medical records, inpatient 05/14. Management of patient was discussed with the following: Documentation Nurse: Dr. Maya, start abx, admit for wound care and pain control. Spoke with Dr. Dc re: need for admit for wound eval and diverting colostomy. Historians other than the Patient: Family Member: Sister. Hem/Onc Dr. Dc. 07/01 17:56 Order name: Lipase; Complete Time: 19:31 snw 07/01 17:57 Order name: CBC with Diff; Complete Time: 18:44 snw 07/01 17:57 Order name: CMP; Complete Time: 19:31 snw 07/02 00:26 Order name: SARS RAPID mw2 07/02 01:15 Order name: SARS-COV-2 Antigen Rapid; Complete Time: 11:50 EDMS 07/02 02:59 Order name: CBC with Automated Diff; Complete Time: 11:50 EDMS 07/01 17:57 Order name: IV Saline Lock; Complete Time: 18:34 snw 07/02 03:19 Order name: Basic Metabolic Panel; Complete Time: 11:50 EDMS 07/02 03:19 Order name: Phosphorus; Complete Time: 11:50 EDMS 07/02 03:19 Order name: Magnesium; Complete Time: 11:50 EDMS 07/01 17:57 Order name: Labs collected and sent; Complete Time: 18:34 snw Administered Medications: 18:45 Drug: NS 0.9% 1000 ml Route: IV; Rate: 75 ml/hr; Site: left antecubital; ko1 20:35 Follow up: Response: No adverse reaction pf1 07/02 00:53 Follow up: IV Status: Completed infusion; IV Intake: 1000ml pf1 07/01 18:49 Drug: fentaNYL (PF) 25 mcg Route: IVP; Site: left antecubital; ko1 19:20 Follow up: Response: No adverse reaction; Marked relief of symptoms; Pain is decreased; pf1 RASS: Alert and Calm (0) 19:30 Follow up: Response: Marked relief of symptoms; Pain is decreased; RASS: Alert and Calm pf1 (0) 18:51 Drug: Flagyl (metroNIDAZOLE) 500 mg Volume: 100 ml; Route: IVPB; Rate: 200 ml/hr; ko1 Infused Over: 30 mins; Site: left antecubital; 19:20 Follow up: IV Status: Completed infusion; IV Intake: 100ml pf1 19:40 Drug: Cipro (ciprofloxacin) 400 mg Volume: 200 ml; Route: IVPB; Infused Over: 60 mins; pf1 Site: left antecubital; 20:40 Follow up: IV Status: Completed infusion; IV Intake: 200ml pf1 Disposition Summary: 07/01/22 18:43 Hospitalization Ordered Hospitalization Status: Inpatient Admission snw Provider: Joe Parkinson snw Condition: Fair snw Problem: an acute exacerbation snw Symptoms: have worsened snw Bed/Room Type: Standard snw Location: [facility] ER HOLD(07/01/22 20:25) cg Room Assignment: ERHOLD-(07/01/22 20:25) cg Diagnosis - Wound care for anal cancer with stool incontinence snw - Pain control snw Forms: - Medication Reconciliation Form snw - SBAR form snw Addendum: 07/05/2022 13:28 Co-signature as Attending Physician, Giovanni Irving MD I agree with the assessment and c granado plan of care. Signatures: Dispatcher [employer] EDGiovanni Hess MD MD cha Waters, Shelly, STRUCTURAL IRONWORKER-C STRUCTURAL IRONWORKER-Csnw Danna Castaneda, RN JORDY iw Melanie De León RN RN cg Calli Mclaughlin RN RN ko1 Mindy hunter, JORDY RN pf1 Corrections: (The following items were deleted from the chart) 07/01 20:25 18:43 Telemetry/MedSurg (Inpatient) snw cg 20:25 18:43 snw cg 20:35 18:35 Previous treatment: Pt was admitted here in Apr. MD [place] for two weeks with snw s/s treatment. Pt sent for diverting colonostomy. snw
--- NOTE | 2022-07-01 18:43 | ER ---
Nurse's Notes [facility] Name: Laura Mendoza Age: 52 yrs Sex: Female : 1970 Arrival Date: 07/01/2022 Time: 17:51 Bed 13 Private MD: Diagnosis: Wound care for anal cancer with stool incontinence;Pain control Presentation: 07/01 17:58 Chief complaint: Patient states: was told her sphincter is not working and she needs a iw colostomy bag, she saw Dr. Cano today, she had and abscess. Coronavirus screen: At this time, the client does not indicate any symptoms associated with coronavirus-19. Ebola Screen: Patient negative for fever greater than or equal to 101.5 degrees Fahrenheit, and additional compatible Ebola Virus Disease symptoms Patient denies exposure to infectious person. Patient denies travel to an Ebola-affected area in the 21 days before illness onset. No symptoms or risks identified at this time. 17:58 Method Of Arrival: Ambulatory iw 17:58 Acuity: REN 3 iw 17:59 Initial Sepsis Screen: Does the patient meet any 2 criteria? No. Patient's initial iw sepsis screen is negative. Does the patient have a suspected source of infection? No. Patient's initial sepsis screen is negative. Risk Assessment: Do you want to hurt yourself or someone else? Patient reports no desire to harm self or others. Onset of symptoms was July 01, 2022. 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 - Social history:: Smoking status: Patient denies any tobacco usage or history of. Screenin:30 [facility] ED Fall Risk Assessment (Adult) History of falling in the last 3 months, ko1 including since admission No falls in past 3 months (0 pts) Confusion or Disorientation No (0 pts) Intoxicated or Sedated No (0 pts) Impaired Gait No (0 pts) Mobility Assist Device Used No (0 pt) Altered Elimination No (0 pt) Score/Fall Risk Level 0 - 2 = Low Risk Oriented to surroundings, Maintained a safe environment, Educated pt \\T\\ family on fall prevention, incl call for assistance when getting out of bed, Assessed \\T\\ reinforced patient's understanding of fall precautions, Provided non-skid footwear, Hourly rounding (assess needs \\T\\ fall precautionary measures) done, Used ambulatory aids as needed (educated on \\T\\ assisted with), Used gait belt as appropriate. Abuse screen: Denies threats or abuse. Denies injuries from another. Nutritional screening: No deficits noted. Tuberculosis screening: No symptoms or risk factors identified. Assessment: 18:30 General: Appears distressed, uncomfortable, Behavior is cooperative, appropriate for ko1 age, anxious. Pain:. Neuro: No deficits noted. Cardiovascular: No deficits noted. Respiratory: No deficits noted. GI: Reports diarrhea. : No deficits noted. EENT: No deficits noted. Derm: No deficits noted. Musculoskeletal: No deficits noted. 19:00 General: Appears in no apparent distress. uncomfortable, well groomed, well developed, pf1 Behavior is calm, cooperative, appropriate for age, quiet. 19:00 Pain: Complains of pain in rectum pain of 6. Neuro: No deficits noted. Level of pf1 Consciousness is awake, alert, obeys commands, Oriented to person, place, time, situation. Cardiovascular: No deficits noted. Capillary refill < 3 seconds Patient's skin is warm and dry. Respiratory: No deficits noted. Airway is patent Trachea midline Respiratory effort is even, unlabored, Respiratory pattern is regular, symmetrical, Breath sounds are clear bilaterally. GI: Reports diarrhea, rectal bleeding, with rectal cancer. : No deficits noted. No signs and/or symptoms were reported regarding the genitourinary system. EENT: No deficits noted. No signs and/or symptoms were reported regarding the EENT system. 20:00 Reassessment: Patient appears in no apparent distress at this time. No changes from pf1 previously documented assessment. Patient and/or family updated on plan of care and expected duration. Pain level reassessed. Patient is alert, oriented x 3, equal unlabored respirations, skin warm/dry/pink. Patient states symptoms have not improved. 07/02 09:42 Reassessment: Patient wants to leave AMA, hospitalist notified. kr3 Vital Signs: 01/09 17:59 BP 129 / 94; Pulse 90; Resp 16; Temp 97.9; Pulse Ox 98% on R/A; Weight 79.83 kg; Height iw 5 ft. 5 in. (165.10 cm); 19:00 BP 119 / 66; Pulse 72; Resp 16; Temp 98; Pulse Ox 99% on R/A; Pain 6/10; pf1 20:00 BP 116 / 66; Pulse 72; Resp 16; Pulse Ox 98% ; Pain 6/10; pf1 17:59 Body Mass Index 29.29 (79.83 kg, 165.10 cm) iw ED Course: 17:51 Patient arrived in ED. rg4 17:52 [facility]C [facility] snw 17:52 Giovanni [place] MD is Attending Physician. snw 17:59 Triage completed. iw 18:09 Calli Mclaughlin, RN is Primary Nurse. ko1 18:30 Inserted saline lock: 20 gauge in left antecubital area, using aseptic technique. Blood ko1 collected. 18:30 Patient has correct armband on for positive identification. Placed in gown. Bed in low ko1 position. Call light in reach. Side rails up X2. Adult w/ patient. Client placed on continuous cardiac and pulse oximetry monitoring. NIBP monitoring applied. color television console monitor on. 18:34 CBC with Diff Sent. ko1 18:34 CMP Sent. ko1 18:34 Lipase Sent. ko1 18:34 Arm band placed on. iw 18:42 Joe Parkinson MD is Hospitalizing Provider. snw 20:25 No provider procedures requiring assistance completed. pf1 20:25 Patient admitted, IV remains in place. pf1 07/02 00:53 SARS RAPID Sent. pf1 Administered Medications: 07/01 18:45 Drug: NS 0.9% 1000 ml Route: IV; Rate: 75 ml/hr; Site: left antecubital; ko1 20:35 Follow up: Response: No adverse reaction pf1 07/02 00:53 Follow up: IV Status: Completed infusion; IV Intake: 1000ml pf1 07/01 18:49 Drug: fentaNYL (PF) 25 mcg Route: IVP; Site: left antecubital; ko1 19:20 Follow up: Response: No adverse reaction; Marked relief of symptoms; Pain is decreased; pf1 RASS: Alert and Calm (0) 19:30 Follow up: Response: Marked relief of symptoms; Pain is decreased; RASS: Alert and Calm pf1 (0) 18:51 Drug: Flagyl (metroNIDAZOLE) 500 mg Volume: 100 ml; Route: IVPB; Rate: 200 ml/hr; ko1 Infused Over: 30 mins; Site: left antecubital; 19:20 Follow up: IV Status: Completed infusion; IV Intake: 100ml pf1 19:40 Drug: Cipro (ciprofloxacin) 400 mg Volume: 200 ml; Route: IVPB; Infused Over: 60 mins; pf1 Site: left antecubital; 20:40 Follow up: IV Status: Completed infusion; IV Intake: 200ml pf1 Medication: 20:25 VIS not applicable for this client. pf1 Intake: 19:20 IV: 100ml; Total: 100ml. pf1 20:40 IV: 200ml; Total: 300ml. pf1 07/02 00:53 IV: 1000ml; Total: 1300ml. pf1 Outcome: 07/01 18:43 Decision to Hospitalize by Provider. snw 20:25 Admitted to ER Hold. Please see [facility] for further documentation. pf1 20:25 Condition: stable 20:25 Instructed on the need for admit, Demonstrated understanding of instructions. 07/02 09:44 Patient left the ED. kr3 Signatures: Elo Mayer, WALL INSULATION SPRAYER-C WALL INSULATION SPRAYER-Csnw Danna Castaneda, RN Emmy Woodruff rg4 Aminata Torres RN RN kr3 Calli Mclaughlin RN RN ko1 Mindy hunter RN RN pf1
[2022-07-01] MEDS ORDERED: FENTANYL CITR 100 MCG/2 ML ONE (18:45)
[2022-07-01] MEDS ORDERED: NA CHLORIDE 0.9% 1,000 ML ONE (18:46)
[2022-07-01] MEDS ORDERED: CIPROFLOXACIN 400mg IV 400 MG/200 ML BAG IV ONE (18:46)
[2022-07-01] MEDS ORDERED: METRONIDAZOLE 500mg IVPB 500 MG/100 ML BAG IV ONE (18:46)
[2022-07-01 19:11] LABS: Albumin 2.8 g/dL (3.4-5.0); Bilirubin Total 0.3 mg/dL (0.2-1.0); Protein, Total 6.9 g/dL (6.4-8.2)
--- NOTE | 2022-07-01 21:35 | P.HP ---
Certification for Inpatient Patient admitted to: Inpatient With expected LOS: >2 Midnights Patient will require the following post-hospital care: None Practitioner: I am a practitioner with admitting privileges, knowledge of patient current condition, hospital course, and medical plan of care. Services: Services provided to patient in accordance with Admission requirements found in Title 42 Section 412.3 of the Code of Federal Regulations Patient History Date of Service: 07/02/22 Reason for admission: Fecal Incontinence History of Present Illness: Patient is a 52 year old female with past medical history of PTSD, hypothyroidism, hypertension, and recent diagnosis of anal squamous cell carcinoma who presented to the emergency department with complaints of diarrhea. She saw her oncologist today, Dr. Dc, who sent her here for further treatment. The carcinoma has eroded a large area around her anus to where she now has minimal control of her bowels. She was sent her to be evaluated by general surgery for diverting colostomy, wound care, and pain control. No significant lab abnormalities. General surgery, Dr. Maya, was contacted and has agreed to consult. She is admitted for further management. Allergies codeine Allergy (Verified 05/15/22 23:46) uknown haloperidol [From Haldol] Allergy (Verified 05/15/22 23:46) hyperactivity risperidone [From Risperdal] Allergy (Verified 05/15/22 23:46) hyperactivity Home medications list reviewed: Yes Home Medications: ARIPiprazole [Aripiprazole] 15 mg PO DAILY 05/16/22 Divalproex ER [Depakote *ER] 250 mg PO BEDTIME 05/16/22 Levothyroxine Sodium [Levothyroxine] 150 mcg PO DAILY 05/16/22 Propranolol [Inderal*] 10 mg PO BID 05/16/22 Trazodone HCl 50 mg PO BEDTIME 05/16/22 lisinopriL [Lisinopril] 20 mg PO DAILY 05/16/22 Amox/Clavulanate [Augmentin 875-125 Tab] 875 mg PO BID 7 Days #14 tab 05/17/22 Hydrocodone 5/APAP 325 [[place] 5/325] 1 tab PO Q6H PRN 3 Days #12 tab 05/17/22 - Past Medical/Surgical History Diabetic: No -: Hypertension -: PTSD -: Manic Depressive Bipolar disorder -: Anal Squamous Cell Carcinoma -: Tubal ligation -: Excisional biopsy and fulguration of perirectal tissue Psychosocial/ Personal History: Patient lives at home alone. She has siblings that help take care of her. - Family History Father -: Cancer Notes: Prostate CA Mother -: Heart disease Notes: Afib - Social History Smoking Status: Never smoker Alcohol use: No CD- Drugs: No Caffeine use: Yes Place of Residence: Home Review of Systems Gastrointestinal: Diarrhea, As per HPI Physical Examination - Vital Signs Temperature: 98 F Blood Pressure: 116/66 Pulse: 72 Respirations: 16 Pulse Ox (%): 98 - Physical Exam General: Alert, In no apparent distress HEENT: Atraumatic, PERRLA, EOMI, Sclerae nonicteric Neck: Supple, 2+ carotid pulse no bruit, No LAD, Without JVD or thyroid abnormality Respiratory: Clear to auscultation bilaterally, Normal air movement Cardiovascular: Regular rate/rhythm, Normal S1 S2 Gastrointestinal: Normal bowel sounds, No tenderness Musculoskeletal: No tenderness Neurological: Normal speech, Normal strength at 5/5 x4 extr, Normal tone, Normal affect - Studies Laboratory Data (last 24 hrs) 07/01/22 18:25: WBC 6.80, Hgb 11.2 L, Hct 33.2 L, Plt Count 326 07/01/22 18:25: Sodium 137, Potassium 4.0, BUN 13, Creatinine 0.77, Glucose 145 H, Total Bilirubin 0.3, AST 11 L, ALT 15, Alkaline Phosphatase 59, Lipase 294 Assessment and Plan - Problems (Diagnosis) (1) Anal squamous cell carcinoma Current Visit: Yes Status: Chronic (2) Fecal incontinence due to anorectal disorder Current Visit: Yes Status: Acute (3) Anemia Current Visit: Yes Status: Chronic Qualifiers: Anemia type: unspecified type (4) Hypertension Current Visit: No Status: Chronic Qualifiers: (5) PTSD (post-traumatic stress disorder) Current Visit: Yes Status: Chronic - Plan Patient is admitted for further management of fecal incontinence secondary to anal SCC. General surgery, Dr Maya, consulted. NPO at midnight. Wound healing consulted. Dr. Dc, heme/onc, consulted. [facility] management [facility]. Continue antibiotics. Pain control as needed. Monitor and replete electrolytes per protocol. Reconcile and continue home medications. SCDs for VTE prophylaxis. Full code. Discharge Plan: Home Plan to discharge in: Greater than 2 days - Advance Directives Does patient have a Living Will: No Does patient have a Durable POA for Healthcare: No - Code Status/Comfort Care Code Status Assessed: Yes Code Status: Full Code Physician Review: Patient Assessed, Agree with Above Assessment and Plan Critical Care: No Time Spent Managing Pts Care (In Minutes): 50
[2022-07-01] MEDS ORDERED: NA CHLORIDE 0.9% 1,000 ML IV SCH (22:28)
[2022-07-01] MEDS ORDERED: ONDANSETRON 4 MG/2 ML VIAL IV PRN (22:28)
[2022-07-01] MEDS ORDERED: HYDROMORPHONE HCL 0.5 MG/0.5 ML INJ IV PRN (22:28)
[2022-07-02] MEDS ORDERED: NA CHLORIDE 0.9% 1,000 ML ONE (00:16)
[2022-07-02] MEDS ORDERED: METRONIDAZOLE 500mg IVPB 500 MG/100 ML BAG IV ONE (00:16)
[2022-07-02 00:24] VITALS: BMI 29.2
[2022-07-02] MEDS ORDERED: METRONIDAZOLE 500mg IVPB 500 MG/100 ML BAG IV SCH (01:00)
[2022-07-02 01:14] LABS: SARS-CoV-2 Antigen Rapid Res Negative (Negative)
[2022-07-02 02:53] LABS: Absolute Lymphocytes (CBC) 2.2 K/uL (0.7-4.9); Hematocrit 29.8 % (36.0-45.0); Lymphocytes % 35.2 % (15.3-44.8); MCV 90.4 fL (80-100); MPV 6.9 fL (7.6-11.3)
[2022-07-02 03:11] LABS: Potassium 4.1 mmol/L (3.5-5.1)
[2022-07-02 05:02] VITALS: BP 139/84; TEMP 99.1
[2022-07-02] MEDS ORDERED: CIPROFLOXACIN 400mg IV 400 MG/200 ML BAG IV SCH (09:00)
[2022-07-02 10:10] VITALS: O2SAT 98
== END 2022-07-02 11:45 | disposition left against medical advice (07) | DRG 376 ==
LOC: ER 17:45 → ERHOLD 21:27
PROVIDERS: ADMIT Hospitalist; ATTEND Hospitalist
DX: C21.0 Malignant neoplasm of anus, unspecified (principal); I10 Essential (primary) hypertension; F43.12 Post-traumatic stress disorder, chronic; D64.9 Anemia, unspecified; E03.9 Hypothyroidism, unspecified; R15.9 Full incontinence of feces; Z88.5 Allergy status to narcotic agent; Z60.2 Problems related to living alone; Z88.8 Allergy status to other drugs, medicaments and biological substances; Z98.51 Tubal ligation status; Z79.890 Hormone replacement therapy; Z79.899 Other long term (current) drug therapy; Z20.822 Contact with and (suspected) exposure to COVID-19
CPT/HCPCS: 36415; 80048; 80053; 83690; 83735; 84100; 85025; 87811; 96361; 96365; 96367; 96375; 99285; J0744; J3010; J7030